=== PATIENT | male | born 1985 | race Caucasian/White ===

== ENCOUNTER 2020-06-12 14:33 | Outpatient (REF) | payer MEDICAID, SELFPAY | END 2020-06-12 14:34 | disposition home or self-care (01) | LOC: HO.LAB 14:33 | PROVIDERS: PCP Nurse Practitioner Family; Visit Provider Internal Medicine | DX: Z20.828 Contact with and (suspected) exposure to other viral communicable diseases (principal) | CPT/HCPCS: C9803; U0003 ==

== ENCOUNTER → 2020-07-22 09:36 | Outpatient (REF) | payer MEDICAID, SELFPAY ==
--- NOTE | ~2020-07-22 | NM_ITS ---
EXERCISE MYOCARDIAL PERFUSION STUDY INDICATION: Chest pain, history of LAD stent, assess for coronary disease and ischemia TECHNIQUE: The patient was brought in for an exercise perfusion study on 07/22/2020. Patient performed exercise as per Shan protocol and was injected 35 mCi of sestamibi once target heart rate was achieved. Images were obtained using the SPECT gamma camera interlaced with the gating device. Images were obtained in supine position. Resting perfusion study was performed on 07/25/2020. Patient was administered 35 mCi of sestamibi intravenously at rest. Images were then obtained in supine position. Total DLP 101mGy-cm. Images were processed with the software and compared side to side in short axis, horizontal long axis and vertical long axis views. FINDINGS: Raw images were reviewed. The stress perfusion study showed small area of the perfusion defect in the basal inferior septum. Possibly artifactual. Otherwise no clear perfusion defect on comparison of uncorrected and attenuation corrected images. The gated study shows normal LV systolic function with calculated LVEF of 64%. LV cavity is normal in size. The gated study is unremarkable. Resting study shows no significant perfusion abnormality. Gating at rest reveals normal wall motion with ejection fraction at 62%. The findings are consistent with no definite reversible or fixed perfusion defects. NM/NM charanjit perf SPECT rest & str IMPRESSION: 1. Myocardial perfusion imaging study shows likely normal perfusion. No definitive areas of any ischemia or infarction noted. 2. Gated LVEF is 64% during stress and 62% during rest. 3. Transient ischemic dilatation not present. EKG component of the test reported separately.
--- NOTE | 2020-07-22 10:00 | CA_ITS ---
Acquisition Time: 2020-07-22 10:54:46 Total Exercise Time: 00:09:20 Test Indications: Chest Pain Medications: ATORVASTATIN CARVEDILOL ASA PLAVIX XARELTO REMERON Protocol: RENE Max HR: 160 BPM 86% of Pred: 184 BPM Max BP: 148/078 mmHG Max Work Load: 10.4 METS Exercise stress test with exercise 9 min 20 sec of Rene protocol ( stage 3 held), without anginal symptoms, without arrythmia, with normotensive response to exercise, without EKG changes meeting criteria for ischemia. Nuclear images pending. Test reviewed with Dr Medina. Referred By: Nicholas Connell Overread By: SAMANTHA BRANDON
== END ==
LOC: HO.CARD 09:36
PROVIDERS: PCP Nurse Practitioner Family; Visit Provider Internal Medicine Cardiovascular Disease
DX: R07.9 Chest pain, unspecified (principal)
CPT/HCPCS: 78452; 93017; A9500

== ENCOUNTER 2021-12-16 08:10 | Outpatient (REF) | payer MEDICAID, SELFPAY ==
[2021-12-16 11:20] LABS: COVID-19 Test Negative (Negative)
== END 2021-12-16 08:11 | disposition home or self-care (01) ==
LOC: HO.LAB 08:10
PROVIDERS: Visit Provider Internal Medicine
DX: Z20.822 Contact with and (suspected) exposure to COVID-19 (principal)
CPT/HCPCS: 87635; C9803

== ENCOUNTER 2022-01-22 13:12 | Outpatient (REF) | payer MEDICAID, SELFPAY ==
[2022-01-22 14:08] LABS: COVID-19 Test Positive (Negative); IDNOW Serial# 16C4AD1C
== END 2022-01-22 13:13 | disposition home or self-care (01) ==
LOC: HO.LAB 13:12
PROVIDERS: Visit Provider Internal Medicine
DX: Z20.822 Contact with and (suspected) exposure to COVID-19 (principal)
CPT/HCPCS: 87635; C9803

== ENCOUNTER 2022-01-29 12:11 | Outpatient (REF) | payer MEDICAID, SELFPAY ==
[2022-01-29 12:56] LABS: COVID-19 Test Positive (Negative)
== END 2022-01-29 12:12 | disposition home or self-care (01) ==
LOC: HO.LAB 12:11
PROVIDERS: Visit Provider Internal Medicine
DX: Z20.822 Contact with and (suspected) exposure to COVID-19 (principal)
CPT/HCPCS: 87635; C9803

== ENCOUNTER 2022-11-06 21:24 | Emergency (ER) | payer MEDICAID, SELFPAY ==
[2022-11-06 21:32] VITALS: BP 136/94; BP 154/86; PULSE 65; PULSE 88; RESP 18; TEMP 36.1; O2SAT 98; O2SAT 99; BMI 20.3
[2022-11-06 22:04] LABS: MANUAL DIFF FLAG NO
[2022-11-06 22:05] LABS: Basophils Absolute Auto 0.1 X10*3/uL (0.0-0.2); Basophils Percent Auto 1.2 % (0-2); Eosinophils Absolute Auto 0.3 X10*3/uL (0.0-0.4); Eosinophils Percent Auto 2.8 % (0-4); Hematocrit 46.5 % (42.0-52.0); Hemoglobin 15.6 g/dl (14.0-18.0); Imm Gran Abs Auto 0.02 X10*3/uL (0.00-0.03); Imm Gran Pct Auto 0.2 % (0.0-0.4); Lymphocytes Absolute Auto 3.6 X10*3/uL (1.2-4.9); Lymphocytes Percent Auto 39.3 % (20-40); Mean Corpuscular HGB Conc 33.5 g/dl (31.0-36.0); Mean Corpuscular Hemoglobin 29.3 pg (27.0-33.0); Mean Corpuscular Volume 87.2 fL (80.0-98.0); Mean Platelet Volume 9.5 fL (9.4-12.4); Monocytes Absolute Auto 0.7 X10*3/uL (0.1-1.2); Monocytes Percent Auto 7.6 % (2-11); Neutrophils Absolute Auto 4.5 x10*3/uL (2.0-8.3); Neutrophils Percent Auto 48.9 % (45-73); Platelet Count 336 X10*3/uL (160-400); Red Blood Count 5.33 X10*6/uL (4.60-5.80); Red Cell Distribution Width 12.9 % (11.0-16.0); White Blood Count 9.2 X10*3/uL (4.8-10.8)
[2022-11-06 22:21] LABS: Anion Gap 13 (12-20); Blood Urea Nitrogen 15 mg/dL (9-16); Calcium 10.3 mg/dL (8.4-10.2); Carbon Dioxide 28 mmol/L (22-29); Chloride 102 mmol/L (96-108); Creatinine Clr Calc Pharmacy 68.3; Estimated Glomerular Filt Rate 56; Glucose Random 69 mg/dL (60-115); Potassium 4.1 mmol/L (3.3-5.1); Sodium 139 mmol/L (135-145)
[2022-11-06 22:42] LABS: Influenza A PCR NEGATIVE (Negative); Influenza B PCR NEGATIVE (Negative); Resp Syncy Virus RNA Qual PCR NEGATIVE (Negative); SARS COV2 PCR INHOUSE NEGATIVE (Negative)
[2022-11-07 00:58] VITALS: BP 137/85; PULSE 61; RESP 18; TEMP 36.6; O2SAT 97
--- NOTE | 2022-11-07 03:08 | ED.GENADULT ---
HPI - General Adult General Chief complaint: General Medical Stated complaint: dizziness Time Seen by Provider: 11/07/22 01:29 History of Present Illness HPI narrative: Patient is 37 years old presents today with having generalized malaise weakness nausea vomiting no diarrhea. Patient's older son also sick at home. Patient denies any pain on urination. Denies any abdominal surgery in the past. Denies any abdominal pain. Feels very achy. Related Data Allergies Allergy/AdvReac Type Severity Reaction Status Date / Time No Known Allergies Allergy Unverified 03/07/20 17:26 Review of Systems Review of Systems: Positive nausea vomiting. No diarrhea. Positive generalized malaise Yes all other systems are reviewed and are negative [facility] Past Medical History Attestation statement: The following information was validated with the patient. Social History Social History Advance Directives: No Advance Directives Information Provided: Yes Physical Exam ED Vital Signs: Vital Signs - 24 hr 11/06/22 21:32 11/07/22 00:58 11/07/22 04:23 Temperature 96.9 F 97.9 F 98.2 F Pulse Rate 65 61 65 Respiratory Rate 18 18 16 Blood Pressure 136/94 H 137/85 115/71 Pulse Oximetry 99 97 96 Oxygen Delivery Method Room Air Room Air Room Air BMI result Body Mass Index 20.3 Appearance: Alert. Oriented X3. No acute distress. Eyes: Pupils equal, round and reactive to light. ENT: Pharynx normal. Neck: Normal inspection. Neck supple. No lymph nodes noted. No crepitus CVS: Normal heart rate and rhythm. Pulses normal. Normal S1 and S2 Respiratory: No respiratory distress. Breath sounds normal. No Wheezing. No rales Abdomen: Soft and nontender. No rigidity. No distention. good BS x4 Skin: Skin warm and dry. Normal skin color. Normal skin turgor. Extremities: No lower extremity edema. Neurovascular intact to all extremities. No Lacerations. No Rash Neuro: Oriented X 3. No motor deficit. No sensory deficit. Moving all extermities. No slurred speech Medications Administered Discontinued Medications Generic Name Dose Route Start Last Admin Trade Name Freq PRN Reason Stop Dose Admin Sodium Chloride 1,000 mls @ 999 mls/hr 11/07/22 03:15 11/07/22 04:49 Ns IV 05/20/23 04:15 Infused .Q1H1M JEFFREY Infusion Sodium Chloride 1,000 mls @ 999 mls/hr 11/07/22 03:15 11/07/22 04:49 Ns IV 11/07/22 04:15 Infused .Q1H1M JEFFREY Infusion Ketorolac Tromethamine 30 mg 11/07/22 03:07 11/07/22 03:49 Ketorolac Tromethamine 30 Mg/Ml Vial IVPUSH 11/07/22 03:08 30 mg ONCE ONE Administration Ondansetron HCl 4 mg 11/07/22 03:07 11/07/22 03:49 Ondansetron Hcl 4 Mg/2 Ml Vial IVPUSH 11/07/22 03:08 4 mg ONCE ONE Administration Medical Decision Making Medical Decision Making [facility] Narrative: Patient's flu RSV COVID were all negative. Had chills nausea not feeling well. Given IV fluids here in the emergency department. Symptom improved. Patient's white count is normal hemoglobin is 15.6 no evidence for anemia electrolytes are normal. Well-appearing no distress. Lilly much improved. Will discharge patient home. Differential Diagnosis Viral syndrome Lab Data [facility] Lab Attestation statement: I reviewed the patient's lab results. 11/06/22 21:59 11/06/22 21:59 Labs: Lab Results 11/06/22 11/06/22 11/06/22 Range/Units 21:59 21:59 21:59 WBC 9.2 (4.8-10.8) X10*3/uL RBC 5.33 (4.60-5.80) X10*6/uL Hgb 15.6 (14.0-18.0) g/dl Hct 46.5 (42.0-52.0) % MCV 87.2 (80.0-98.0) fL MCH 29.3 (27.0-33.0) pg MCHC 33.5 (31.0-36.0) g/dl RDW 12.9 (11.0-16.0) % Plt Count 336 (160-400) X10*3/uL MPV 9.5 (9.4-12.4) fL Immature Gran % (Auto) 0.2 (0.0-0.4) % Neut % (Auto) 48.9 (45-73) % Lymph % (Auto) 39.3 (20-40) % [place] % (Auto) 7.6 (2-11) % Eos % (Auto) 2.8 (0-4) % Baso % (Auto) 1.2 (0-2) % Lymph # (Auto) 3.6 (1.2-4.9) X10*3/uL [place] # (Auto) 0.7 (0.1-1.2) X10*3/uL Eos # (Auto) 0.3 (0.0-0.4) X10*3/uL Baso # (Auto) 0.1 (0.0-0.2) X10*3/uL Abs Immat Gran (auto) 0.02 (0.00-0.03) X10*3/uL Absolute Neuts (auto) 4.5 (2.0-8.3) x10*3/uL Absolute Nucleated RBC 0.000 (0.0-0.012) X10*3/uL Nucleated RBC % (auto) 0.0 (0.0-0.2) /100WBC Sodium 139 (135-145) mmol/L Potassium 4.1 (3.3-5.1) mmol/L Chloride 102 (96-108) mmol/L Carbon Dioxide 28 (22-29) mmol/L Anion Gap 13 (12-20) BUN 15 (9-16) mg/dL Creatinine 1.41 H (0.5-1.4) mg/dL Estim Creat Clear Calc 68.3 Estimated GFR 56 Random Glucose 69 (60-115) mg/dL Calcium 10.3 H (8.4-10.2) mg/dL Influenza Type A (PCR) NEGATIVE (Negative) Influenza Type B (PCR) NEGATIVE (Negative) RSV RNA Qual (PCR) NEGATIVE (Negative) SARS-CoV-2 RNA (RT-PCR) NEGATIVE (Negative) Discharge Plan Discharge Clinical Impression: Acute viral syndrome Patient Disposition: Home, Self-Care Instructions: Viral Syndrome (ED) Referrals: [facility] [Primary Care Provider] - 11/09/22
[2022-11-07] MEDS: 0.9 % Sodium Chloride 1,000 ML 999 ML IV ×2 (03:48)
[2022-11-07] MEDS: Ketorolac Tromethamine 30 MG/ML VIAL IVPUSH (03:49)
[2022-11-07] MEDS: ondansetron HCL 4 MG/2 ML VIAL IVPUSH (03:49)
[2022-11-07 04:23] VITALS: BP 115/71; PULSE 65; RESP 16; TEMP 36.8; O2SAT 96
== END 2022-11-07 06:07 | disposition home or self-care (01) ==
PROVIDERS: Emergency Provider Emergency Medicine Emergency Medical Services
DX: B34.9 Viral infection, unspecified (principal); R53.1 Weakness; Z20.822 Contact with and (suspected) exposure to COVID-19; Z20.828 Contact with and (suspected) exposure to other viral communicable diseases
CPT/HCPCS: 0241U; 80048; 85025; 96361; 96374; 96375; 99284; J1885; J2405

== ENCOUNTER 2023-01-15 19:06 | Emergency (ER) | payer MEDICAID, SELFPAY ==
--- NOTE | ~2023-01-15 | XR_ITS ---
EXAMINATION: XR CHEST CLINICAL INFORMATION: Chest pain COMPARISON: Chest x-ray on 02/01/2020 TECHNIQUE: Frontal view of the chest was obtained. FINDINGS: No significant abnormality is noted involving the heart, lungs, mediastinum, bony thorax or soft tissues. XR/XR chest 1V IMPRESSION: Unremarkable examination.
--- NOTE | 2023-01-15 19:11 | ECG_ITS ---
Test Reason : CHEST PAIN Blood Pressure : / mmHG Vent. Rate : 092 BPM Atrial Rate : 092 BPM P-R Int : 170 ms QRS Dur : 086 ms QT Int : 374 ms P-R-T Axes : 049 059 034 degrees QTc Int : 462 ms Normal sinus rhythm Normal ECG When compared with ECG of 02-FEB-2020 11:01, No significant change was found Referred By: Neelam Bowman Electronically Signed By:VICENTE SILVA MD
[2023-01-15 19:14] VITALS: BP 144/90; PULSE 80; O2SAT 100
[2023-01-15 19:26] VITALS: BP 138/97; PULSE 91; RESP 18; O2SAT 98; BMI 34.6
[2023-01-15 20:04] LABS: Appearance Urine Clear; Color Urine Yellow; Glucose Urine UA Negative (Negative); Leukocyte Esterase Urine Negative (Negative); Nitrite Urine Negative (Negative); Specific Gravity - Urine 1.015 (1.005-1.025); UMIC TRIGGER UACC YES; Urine Blood Trace (Negative); Urine Ketones Trace mg/dL (Negative); Urine Protein Negative (Neg-Trace)
[2023-01-15 20:33] LABS: Bacteria Urine None Seen (None Seen); Hyaline Casts Urine >20 /LPF (0-2); Squamous Epithelial Cell Urine 0-2 /HPF (0-2); WBC Urine 0-5 /HPF (0-5)
--- NOTE | 2023-01-15 20:38 | MHC.RECOVSUP ---
? Reason for consult:OPI o? Current location:[facility]? o? Identified substance use concern:? -? Support ? Intervention: o? Community resources provided o? Harm reduction discussion ? Plan:Outpatient services ? Additional information:RC met with this pt and discussed different treatment options, pt is interested in obtaining a riding coach and continuing the gonzalez with MICHAEL. This comic book writer provided this pt with business card and recovery resources. Provider was informed.
[2023-01-15 20:40] LABS: Anion Gap 21 (12-20); Blood Urea Nitrogen 14 mg/dL (9-16); Calcium 10.6 mg/dL (8.4-10.2); Carbon Dioxide 19 mmol/L (22-29); Chloride 102 mmol/L (96-108); Creatinine Clr Calc Pharmacy 88.1; Estimated Glomerular Filt Rate 54; Glucose Random 104 mg/dL (60-115); Potassium 3.4 mmol/L (3.3-5.1); Sodium 139 mmol/L (135-145)
[2023-01-15 20:43] LABS: Troponin-I High Sensitivity < 2.7 ng/L (<3.5-35.0)
[2023-01-15 22:15] LABS: MANUAL DIFF FLAG NO
[2023-01-15 22:18] VITALS: BP 130/76; PULSE 67; RESP 14; TEMP 36.7; O2SAT 98
[2023-01-15 22:21] LABS: Basophils Absolute Auto 0.1 X10*3/uL (0.0-0.2); Basophils Percent Auto 0.7 % (0-2); Eosinophils Percent Auto 0.3 % (0-4); Hematocrit 47.5 % (42.0-52.0); Imm Gran Abs Auto 0.07 X10*3/uL (0.00-0.03); Imm Gran Pct Auto 0.5 % (0.0-0.4); Lymphocytes Absolute Auto 2.3 X10*3/uL (1.2-4.9); Lymphocytes Percent Auto 16.6 % (20-40); Mean Corpuscular HGB Conc 33.7 g/dl (31.0-36.0); Mean Corpuscular Hemoglobin 29.6 pg (27.0-33.0); Mean Platelet Volume 9.9 fL (9.4-12.4); Monocytes Percent Auto 7.2 % (2-11); Neutrophils Absolute Auto 10.4 x10*3/uL (2.0-8.3); Neutrophils Percent Auto 74.7 % (45-73); Platelet Count 339 X10*3/uL (160-400); Red Cell Distribution Width 12.7 % (11.0-16.0); White Blood Count 13.9 X10*3/uL (4.8-10.8)
--- NOTE | 2023-01-15 22:37 | ED_ITS ---
HPI - Chest Pain General Chief Complaint: Chest Pain Stated Complaint: Chest Pain/N/V Time Seen by Provider: 01/15/23 20:49 Source: patient Mode of arrival: EMS Limitations: no limitations History of Present Illness HPI narrative: Patient is a 37-year-old male presents emergency department for evaluation of chest pain that he reports that started today after taking his methadone in using heroin simultaneously. Chest pain was diffuse across the anterior chest and had associated vomiting, he denies pain at the time of my exam evaluation. He is requesting assistance with detox from heroin. Denies headache, dizziness, lightheadedness, neck pain, vision changes, shortness of breath, difficulty breathing, abdominal pain, numbness or tingling of the extremities, weakness. Related Data Allergies Allergy/AdvReac Type Severity Reaction Status Date / Time No Known Allergies Allergy Unverified 03/07/20 17:26 Review of Systems Review of Systems: Constitutional : No Weight loss, No Fever, No Chills ENT/Mouth :? No sore throat, No Rhinorrhea Eyes: No Eye Pain, No Swelling Cardiovascular : pos Chest Pain, No SOB, no Dyspnea on Exertion, No Orthopnea, No Edema, No Palpitations Respiratory : No Cough, No Sputum Gastrointestinal : pos Nausea, No Vomiting, No Diarrhea, No abdominal Pain, No Hematochezia, No Melena Genitourinary : No Dysuria, No Urinary Frequency Musculoskeletal : No joint pain, No Myalgias, No Joint Swelling Skin : No Skin Lesions, No rash Neuro : No Weakness, No Numbness, No Dizziness, No Headache Psych : No Anxiety/Panic, No Depression Heme/Lymph: No Bruising, No Lymphadenopathy Endocrine : No Polyuria, No Polydipsia Yes all other systems are reviewed and are negative [facility] Past Medical History Attestation statement: The following information was validated with the patient. Source: old records reviewed Social History Social History Advance Directives: No Advance Directives Information Provided: Yes Physical Exam Vital Signs: Vital Signs: Last Vital Signs Temp 98.1 F 01/15/23 22:18 Pulse 67 01/15/23 22:18 Resp 14 01/15/23 22:18 BP 130/76 01/15/23 22:18 Pulse Ox 98 01/15/23 22:18 O2 Del Method Room Air 01/15/23 22:18 BMI result Body Mass Index 34.6 Appearance: Alert.?Oriented to person, place and time. No acute distress.?Normal affect. Eyes: Pupils equal, round and reactive to light.? ENT: Pharynx normal.?? Neck: Normal inspection.? Neck supple.?? CVS: Heart sounds normal. Normal heart rate and rhythm.? Pulses normal.?? Respiratory: No respiratory distress.? Lung sounds clear to auscultation bilaterally?? Abdomen: Soft and non-tender. Normoactive bowel sounds. No pulsatile mass.?? Skin: Skin warm and dry.? Normal skin color.? ? Extremities: No lower extremity edema.? Neuro: Moves all extremities spontaneously. Sensation intact bilaterally. CN II- XII intact. No focal neuro deficits. Ambulates with normal steady gait. Medical Decision Making Medical Decision Making [facility] Narrative: patient is a 37-year-old male presents emergency department for evaluation of chest pain as per HPI put at the time my examination chest pain had a fall, he is overall well-appearing, nontoxic, afebrile, without any respiratory distress. He did receive 500 mL of normal saline and Zofran IV prior to arrival by EMS with good effect. CBC with mild leukocytosis likely leukmoid reaction from vomiting, which has now resolved. CMP revealing elevated creatinine which appears consistent with prior level obtained in October 2022. Troponin <2.7, EKG revealing normal sinus rhythm with ventricular rate of 92, QTC 462, no ST e levation, ST depression, or T-wave inversion, at this time not consistent with ACS. PERC Negative unlikely pulmonary embolism. chest x-rays without acute cardiopulmonary findings, no evidence of pneumonia. his symptoms have resolved, suspect that this was in relation to polysubstance use, at this time he is stable for discharge. He received information for local detox facilities which he will be contacting. offered Narcan upon discharge take home, patient declines reporting that he already has Narcan. reviewed worrisome signs and symptoms that would warrant re-evaluation in the emergency department. All Questions answered Differential Diagnosis Differential Diagnoses: The differential diagnosis associated with the presenta tion includes ( polysubstance use, ACS, pulmonary embolism, pneumonia) Admission/Observation Consideration of admission/observation: Escalation of care including admission/observation considered ( I considered admission for chest pain, see narrative above for further details) Lab Data [facility]DM Lab Attestation statement: I reviewed the patient's lab results. ( see narrative above) 01/15/23 22:06 01/15/23 19:55 Labs: Lab Results 01/15/23 01/15/23 01/15/23 Range/Units 19:55 19:55 19:55 WBC (4.8-10.8) X10*3/uL RBC (4.60-5.80) X10*6/uL Hgb (14.0-18.0) g/dl Hct (42.0-52.0) % MCV (80.0-98.0) fL MCH (27.0-33.0) pg MCHC (31.0-36.0) g/dl RDW (11.0-16.0) % Plt Count (160-400) X10*3/uL MPV (9.4-12.4) fL Immature Gran % (Auto) (0.0-0.4) % Neut % (Auto) (45-73) % Lymph % (Auto) (20-40) % [place] % (Auto) (2-11) % Eos % (Auto) (0-4) % Baso % (Auto) (0-2) % Lymph # (Auto) (1.2-4.9) X10*3/uL [place] # (Auto) (0.1-1.2) X10*3/uL Eos # (Auto) (0.0-0.4) X10*3/uL Baso # (Auto) (0.0-0.2) X10*3/uL Abs Immat Gran (auto) (0.00-0.03) X10*3/uL Absolute Neuts (auto) (2.0-8.3) x10*3/uL Absolute Nucleated RBC (0.0-0.012) X10*3/uL Nucleated RBC % (auto) (0.0-0.2) /100WBC Sodium 139 (135-145) mmol/L Potassium 3.4 (3.3-5.1) mmol/L Chloride 102 (96-108) mmol/L Carbon Dioxide 19 L (22-29) mmol/L Anion Gap 21 H (12-20) BUN 14 (9-16) mg/dL Creatinine 1.45 H (0.5-1.4) mg/dL Estim Creat Clear Calc 88.1 Estimated GFR 54 Random Glucose 104 (60-115) mg/dL Calcium 10.6 H (8.4-10.2) mg/dL Troponin I High Sens < 2.7 (<3.5-35.0) ng/L Urine Color Yellow Urine Appearance Clear Urine pH 6.0 (5.0-9.0) Ur Specific [place] 1.015 (1.005-1.025) Urine Protein Negative (Neg-Trace) mg/dL Urine Glucose (UA) Negative (Negative) mg/dL Urine Ketones Trace (Negative) mg/dL Urine Blood Trace H (Negative) Urine Nitrite Negative (Negative) Ur Leukocyte Esterase Negative (Negative) Urine RBC 3-5 H (0-2) /HPF Urine WBC 0-5 (0-5) /HPF Ur Squamous Epith Cells 0-2 (0-2) /HPF Urine Bacteria None Seen (None Seen) Hyaline Casts >20 (0-2) /LPF 01/15/23 Range/Units 22:06 WBC 13.9 H (4.8-10.8) X10*3/uL RBC 5.40 (4.60-5.80) X10*6/uL Hgb 16.0 (14.0-18.0) g/dl Hct 47.5 (42.0-52.0) % MCV 88.0 (80.0-98.0) fL MCH 29.6 (27.0-33.0) pg MCHC 33.7 (31.0-36.0) g/dl RDW 12.7 (11.0-16.0) % Plt Count 339 (160-400) X10*3/uL MPV 9.9 (9.4-12.4) fL Immature Gran % (Auto) 0.5 H (0.0-0.4) % Neut % (Auto) 74.7 H (45-73) % Lymph % (Auto) 16.6 L (20-40) % [place] % (Auto) 7.2 (2-11) % Eos % (Auto) 0.3 (0-4) % Baso % (Auto) 0.7 (0-2) % Lymph # (Auto) 2.3 (1.2-4.9) X10*3/uL [place] # (Auto) 1.0 (0.1-1.2) X10*3/uL Eos # (Auto) 0.0 (0.0-0.4) X10*3/uL Baso # (Auto) 0.1 (0.0-0.2) X10*3/uL Abs Immat Gran (auto) 0.07 H (0.00-0.03) X10*3/uL Absolute Neuts (auto) 10.4 H (2.0-8.3) x10*3/uL Absolute Nucleated RBC 0.000 (0.0-0.012) X10*3/uL Nucleated RBC % (auto) 0.0 (0.0-0.2) /100WBC Sodium (135-145) mmol/L Potassium (3.3-5.1) mmol/L Chloride (96-108) mmol/L Carbon Dioxide (22-29) mmol/L Anion Gap (12-20) BUN (9-16) mg/dL Creatinine (0.5-1.4) mg/dL Estim Creat Clear Calc Estimated GFR Random Glucose (60-115) mg/dL Calcium (8.4-10.2) mg/dL Troponin I High Sens (<3.5-35.0) ng/L Urine Color Urine Appearance Urine pH (5.0-9.0) Ur Specific [place] (1.005-1.025) Urine Protein (Neg-Trace) mg/dL Urine Glucose (UA) (Negative) mg/dL Urine Ketones (Negative) mg/dL Urine Blood (Negative) Urine Nitrite (Negative) Ur Leukocyte Esterase (Negative) Urine RBC (0-2) /HPF Urine WBC (0-5) /HPF Ur Squamous Epith Cells (0-2) /HPF Urine Bacteria (None Seen) Hyaline Casts (0-2) /LPF Independent Interpretation I performed an independent interpretation of an: Plain X-Ray ( I personally interpreted chest x-ray and agree with radiologist impression, there is no evidence of pneumonia, pneumothorax) Radiology Impression Discussion of test interpretation with radiology: I have reviewed the radiologist's reading. Radiologist Impression: XR/XR chest 1V IMPRESSION: Unremarkable examination. Independent Historian Clinical information obtained from an independent historian. History obtained from or confirmed by: EMS External Record Review External record reviewed: Prior outpatient labs Social Determinants Patient?s care significantly limited by Social Determinants of Health including: Alcoholism and drug addiction in family Discharge Plan Discharge Clinical Impression: Polysubstance use disorder, Chest pain Patient Disposition: Home, Self-Care Instructions: Chest Pain (ED) Additional Instructions: please follow-up with detox facilities. Return back to emergency department any new or worsening symptoms or concerns. Referrals: [facility] [Primary Care Provider] - Interventions: ED Discharge Assessment Last Done: 01/15/23 23:01 Discharge Date/Time: 01/15/23 23:02
== END 2023-01-15 23:02 | disposition home or self-care (01) ==
PROVIDERS: Nurse Practitioner Family; Emergency Provider Emergency Medicine
DX: R07.89 Other chest pain (principal); R11.2 Nausea with vomiting, unspecified; F11.10 Opioid abuse, uncomplicated; Z79.899 Other long term (current) drug therapy
CPT/HCPCS: 36415; 71045; 80048; 81001; 81003; 84484; 85025; 93005; 99283; 99284

== ENCOUNTER → 2023-01-15 19:11 | Outpatient (BNV) | payer MEDICAID, SELFPAY | PROVIDERS: Emergency Provider Emergency Medicine; Visit Provider Internal Medicine Cardiovascular Disease | DX: R07.9 Chest pain, unspecified (principal) | CPT/HCPCS: 93010 ==

== ENCOUNTER 2023-03-12 15:38 | Outpatient (REF) | payer MEDICAID, SELFPAY ==
[2023-03-12 17:34] LABS: Anion Gap 13 (12-20); Blood Urea Nitrogen 9 mg/dL (9-16); Calcium 9.5 mg/dL (8.4-10.2); Carbon Dioxide 26 mmol/L (22-29); Chloride 105 mmol/L (96-108); Estimated Glomerular Filt Rate > 60; Glucose Random 88 mg/dL (60-115); Potassium 4.3 mmol/L (3.3-5.1); Sodium 140 mmol/L (135-145)
== END 2023-03-12 15:39 | disposition home or self-care (01) ==
LOC: HO.HHCL 15:38
PROVIDERS: Visit Provider Nurse Practitioner Primary Care
DX: R79.89 Other specified abnormal findings of blood chemistry (principal)
CPT/HCPCS: 36415; 80048

== ENCOUNTER 2023-04-18 17:06 | Emergency (ER) | payer MEDICAID, SELFPAY ==
[2023-04-18 17:31] VITALS: BP 112/72; BP 142/84; PULSE 48; PULSE 50; RESP 16; TEMP 36.4; O2SAT 95; O2SAT 98; BMI 35.9
--- NOTE | 2023-04-18 18:12 | ECG_ITS ---
Test Reason : PALPITATIONS Blood Pressure : / mmHG Vent. Rate : 045 BPM Atrial Rate : 045 BPM P-R Int : 152 ms QRS Dur : 084 ms QT Int : 514 ms P-R-T Axes : 020 048 025 degrees QTc Int : 444 ms Sinus bradycardia Otherwise normal ECG When compared with ECG of 15-JAN-2023 19:25, Vent. rate has decreased BY 47 BPM Referred By: Vilma Jones Electronically Signed By:SAPPHIRE LANDERS MD
[2023-04-18 18:59] LABS: Hematocrit 41.8 % (42.0-52.0); Hemoglobin 13.9 g/dl (14.0-18.0); Mean Corpuscular HGB Conc 33.3 g/dl (31.0-36.0); Mean Corpuscular Hemoglobin 29.6 pg (27.0-33.0); Mean Corpuscular Volume 88.9 fL (80.0-98.0); Mean Platelet Volume 9.6 fL (9.4-12.4); Platelet Count 290 X10*3/uL (160-400); Red Cell Distribution Width 12.7 % (11.0-16.0); White Blood Count 9.4 X10*3/uL (4.8-10.8)
--- NOTE | 2023-04-18 19:04 | ED.DIZZY ---
HPI - Dizziness General Chief Complaint: Dizziness Stated Complaint: ETOH Time Seen by Provider: 04/18/23 17:20 Source: patient Mode of arrival: ambulatory Limitations: no limitations History of Present Illness HPI Narrative: Patient is a 38-year-old male who presents emergency department for evaluation of dizziness, diaphoresis and palpitations. He reports at approximately 1600 today he was hanging curtains when suddenly he felt ?just a very little bit dizzy? in began sweating and felt his heart racing. He tried to sit down and his symptoms did not resolve. He states that he thought this may have been related to withdrawal from opiates, he decided to snort a bag of heroin which did not relieve his symptoms. He states he infrequently uses heroin, he is currently on methadone. He was concerned about the way he was feeling as he states he had a history of 2 heart attacks with stent placement in 2014. At the time of my examination he states that his symptoms have mostly resolved but he does still feel little bit of palpitations and discomfort to the anterior chest diffusely. He denies fevers, chills, neck pain, jaw pain, URI symptoms, shortness of breath, numbness or tingling of the extremities, lower extremity swelling, weakness. Related Data Allergies Allergy/AdvReac Type Severity Reaction Status Date / Time No Known Allergies Allergy Verified 04/18/23 17:44 Review of Systems Review of Systems: Yes all other systems are reviewed and are negative [facility] Past Medical History Attestation statement: The following information was validated with the patient. Source: old records reviewed Social History Social History Use of substances other than those prescribed or required for medical reasons: Yes Substance Use Type: Heroin Advance Directives: No Advance Directives Information Provided: No Physical Exam Vital Signs: Vital Signs: Last Vital Signs Temp 98.2 F 04/18/23 22:49 Pulse 50 04/18/23 22:49 Resp 18 04/18/23 22:49 BP 108/69 04/18/23 22:49 Pulse Ox 98 04/18/23 22:49 O2 Del Method Room Air 04/18/23 22:49 BMI result Body Mass Index 35.9 Appearance: Alert.?Oriented to person, place and time. No acute distress.?Normal affect. Eyes: Pupils equal, round and reactive to light.? ENT: Pharynx normal.?? Neck: Normal inspection.? Neck supple.?? CVS: Heart sounds normal. Normal heart rate and rhythm.? Pulses normal.?? Respiratory: No respiratory distress.? Lung sounds clear to auscultation bilaterally?? Abdomen: Soft and non-tender. Normoactive bowel sounds. No pulsatile mass.?? Skin: Skin warm and dry.? Normal skin color.? Extremities: No lower extremity edema.? No calf ttp? Neuro: Moves all extremities spontaneously. Sensation intact bilaterally. No focal neuro deficits. Ambulates with normal steady gait. Course Reevaluation(s) Reevaluation #1: Serum labs are overall unremarkable. High sensitive troponin negative x2. EKG revealing sinus tachycardia without evidence of heart block or acute ischemic findings. He has been asymptomatic for the duration of his stay here. At this time feel he is stable for discharge home. Discussed with patient outpatient follow-up with primary care provider. Reviewed worrisome signs and symptoms that would warrant re-evaluation emergency department. All questions were answered. Medical Decision Making Medical Decision Making [facility] Narrative: Patient is a 38-year-old male with reported past medical history of myocardial infarction x2 with stent placement in 2014 presenting to emergency department for evaluation of mild dizziness diaphoresis and palpitations as per HPI. At the time my examination he is overall well-appearing, nontoxic, afebrile. He is noted to be bradycardic with pulse rate of 56 on auscultation. No respiratory distress. Speaking clear full sentences. No focal neurological deficits. No diaphoresis is noted. His symptoms have nearly completely resolved aside from a mild discomfort diffusely throughout the chest and intermittent palpitations. When asked he declines any interest in a SUDE evaluation or detox. Discussed with patient plan of care, Will obtain CBC to evaluate for leukocytosis/ anemia, CMP to evaluate for abnormal electrolytes /abnormal renal function/ abnormal hepatic function, EKG and troponin to evaluate for ischemia/ACS, and viral testing Differential Diagnosis Differential Diagnoses: The differential diagnosis associated with the presentation includes (As noted above) Admission/Observation Consideration of admission/observation: Escalation of care including admission/observation considered (I considered admission for palpitations lightheadedness, see course narrative for further detail) Lab Data [facility] Lab Attestation statement: I reviewed the patient's lab results. CBC is without leukocytosis, mild normocytic anemia, CMP is unremarkable. COVID and flu testing negative. 04/18/23 18:48 04/18/23 18:48 Labs: Lab Results 04/18/23 04/18/23 Range/Units 18:48 21:35 WBC 9.4 (4.8-10.8) X10*3/uL RBC 4.70 (4.60-5.80) X10*6/uL Hgb 13.9 L (14.0-18.0) g/dl Hct 41.8 L (42.0-52.0) % MCV 88.9 (80.0-98.0) fL MCH 29.6 (27.0-33.0) pg MCHC 33.3 (31.0-36.0) g/dl RDW 12.7 (11.0-16.0) % Plt Count 290 (160-400) X10*3/uL MPV 9.6 (9.4-12.4) fL Absolute Nucleated RBC 0.000 (0.0-0.012) X10*3/uL Nucleated RBC % (auto) 0.0 (0.0-0.2) /100WBC PT 12.0 (11.1-13.3) SEC INR 1.0 (0.9-1.1) Sodium 138 (135-145) mmol/L Potassium 3.6 (3.3-5.1) mmol/L Chloride 107 (96-108) mmol/L Carbon Dioxide 23 (22-29) mmol/L Anion Gap 12 (12-20) BUN 13 (9-16) mg/dL Creatinine 1.01 (0.5-1.4) mg/dL Estim Creat Clear Calc 123.8 Estimated GFR > 60 Random Glucose 78 (60-115) mg/dL Calcium 9.2 (8.4-10.2) mg/dL Total Bilirubin 0.3 (0.0-1.0) mg/dL AST 20 (5-37) U/L ALT 20 (0-40) U/L Alkaline Phosphatase 72 (39-117) U/L Troponin I High Sens < 2.7 < 2.7 (<3.5-35.0) ng/L B-Natriuretic Peptide 108 H (<100) pg/mL Total Protein 7.3 (6.5-8.0) g/dL Albumin 4.0 (3.5-5.0) g/dL COVID-19 (ELKE) Negative (Negative) COVID-19 Clin Com See Note Influenza Type A (LINDSAY) Negative (Negative) Influenza Type B (LINDSAY) Negative (Negative) Influenza A & B Note See Note Independent Interpretation I performed an independent interpretation of an: EKG Interpretation: Rate: Sinus bradycardia Rhythm:? 45 Normal P waves.? Normal GURDEEP.?? Normal QRS complex.?? ST T wave :??No ST elevation, no ST depression, no T-wave inversion The study has been interpreted contemporaneously by me. Independent Historian Clinical information obtained from an independent historian. History obtained from or confirmed by: EMS External Record Review External record reviewed: Outpatient record and Prior outpatient labs Discharge Plan Discharge Clinical Impression: Heart palpitations Patient Disposition: Home, Self-Care Instructions: Heart Palpitations (ED) Referrals: [place] [Primary Care Provider] -
[2023-04-18 19:15] LABS: IDNOW Serial# 9DB6401D; Influenza A Negative (Negative); Influenza B2 Negative (Negative)
[2023-04-18 19:20] LABS: Alanine Aminotransferase 20 U/L (0-40); Alkaline Phosphatase 72 U/L (39-117); Anion Gap 12 (12-20); Aspartate Amino Transferase 20 U/L (5-37); Bilirubin Total 0.3 mg/dL (0.0-1.0); Blood Urea Nitrogen 13 mg/dL (9-16); Calcium 9.2 mg/dL (8.4-10.2); Carbon Dioxide 23 mmol/L (22-29); Chloride 107 mmol/L (96-108); Creatinine Clr Calc Pharmacy 123.8; Estimated Glomerular Filt Rate > 60; Glucose Random 78 mg/dL (60-115); Potassium 3.6 mmol/L (3.3-5.1); Sodium 138 mmol/L (135-145); Total Protein 7.3 g/dL (6.5-8.0)
[2023-04-18 19:21] LABS: COVID-19 Test Negative (Negative); IDNOW Serial# 55D5AD1C
[2023-04-18 19:23] LABS: B Type Natriuretic Peptide 108 pg/mL (<100)
[2023-04-18 19:30] LABS: Troponin-I High Sensitivity < 2.7 ng/L (<3.5-35.0)
[2023-04-18 20:32] VITALS: BP 132/80; PULSE 52
[2023-04-18 20:34] VITALS: BP 128/84; PULSE 51
[2023-04-18 20:35] VITALS: BP 140/82; PULSE 50
--- NOTE | 2023-04-18 21:05 | PC.NURSE ---
Pt aox4 resting at the bedside. Reports no pain or discomfort at this time. Pt aware of plan of care. Pending lab draw at 2200.
[2023-04-18 22:03] LABS: Troponin-I High Sensitivity < 2.7 ng/L (<3.5-35.0)
[2023-04-18 22:49] VITALS: BP 108/69; PULSE 50; RESP 18; TEMP 36.8; O2SAT 98
== END 2023-04-18 23:43 | disposition home or self-care (01) ==
PROVIDERS: Nurse Practitioner Family; Emergency Provider Internal Medicine
DX: R00.2 Palpitations (principal); R42 Dizziness and giddiness; R06.02 Shortness of breath; R07.89 Other chest pain; Z11.52 Encounter for screening for COVID-19; Z20.822 Contact with and (suspected) exposure to COVID-19; Z79.899 Other long term (current) drug therapy
CPT/HCPCS: 36415; 80053; 83880; 84484; 85027; 85610; 87502; 87635; 93005; 99285

== ENCOUNTER 2023-07-02 08:08 | Emergency (ER) | payer MEDICAID, SELFPAY ==
[2023-07-02 08:16] VITALS: BP 137/88; BP 160/100; PULSE 64; PULSE 89; RESP 18; TEMP 36.8; O2SAT 100; O2SAT 97; BMI 33.5
--- NOTE | 2023-07-02 08:38 | ED_ITS ---
HPI - Nausea/Vomiting/Diarrhea General Chief complaint: Nausea/Vomiting/Diarrhea Stated complaint: NAUSEA VOMITING Time Seen by Provider: 07/02/23 08:13 Source: patient and EMS Mode of arrival: EMS Limitations: no limitations History of Present Illness HPI Narrative: 38 year old male with no significant pmhx presents to the ED today for evaluation of nausea, vomiting, and diarrhea x2 hours. Endorses associated body aches, chills. 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 Denies fever, chills, sore throat, chest pain, sob, abdominal pain, hematemesis, hematochezia, melena. Denies recent travel. Related Data Previous Rx's Medication Instructions Recorded ondansetron 4 mg disintegrating 4 mg PO DAILY PRN nausea and 07/02/23 tablet vomiting 5 days #10 tabs Allergies Allergy/AdvReac Type Severity Reaction Status Date / Time No Known Allergies Allergy Verified 04/18/23 17:44 Review of Systems Review of Systems: Constitutional: No fever, chills, fatigue, night sweats, weight changes ENT/Mouth: No ear pain, hearing loss, nasal congestion, sinus pain, rhinorrhea, sore throat Eyes: No eye pain, swelling, redness, vision changes, discharge Cardio: No chest pain, palpitations, LY, orthopnea, peripheral edema Pulm: No SOB, cough, sputum, wheezing, dyspnea, hemoptysis GI: +nausea, +vomiting, +diarrhea, No hematemesis, abdominal pain, constipation, hematochezia, melena : No irregular bleeding, dysuria, frequency, urgency, hesitancy, hematuria, flank pain, urinary flow changes, urinary incontinence or retention MSK: No back pain, neck pain, joint pain, myalgias Skin: No lesions, rashes Neuro: No weakness, numbness, paresthesias, LOC, dizziness, headache All other systems reviewed and are negative. [facility] Past Medical History Attestation statement: The following information was validated with the patient. Source: old records reviewed and nursing notes reviewed Onset Date is defined in the Problem List Problems that require an onset date and time if occurred within 24 hrs of arrival to the ED Aortic Dissection and Rupture; Neurologic impairment; Cardiopulmonary Arrest; Endotracheal Intubation; Insertion or Replacement of Mechanical Circulatory Assist Device Social History Social History Substance Use Type: Heroin Advance Directives: No Advance Directives Information Provided: Yes Physical Exam Vital Signs: Vital Signs: Last Vital Signs Temp 98.2 F 07/02/23 08:42 Pulse 68 07/02/23 08:42 Resp 16 07/02/23 08:42 BP 111/78 07/02/23 08:42 Pulse Ox 99 07/02/23 08:42 O2 Del Method Room Air 07/02/23 08:42 BMI result Body Mass Index 33.5 Vital signs stable, afebrile. Const: General: cooperative, comfortable, no acute distress, alert and awake Orientation/consciousness: patient oriented x3 Limitations: no limitations HEENT: Head: Yes normal to inspection Ears: hearing grossly normal bilaterally, external ears normal, TM's normal bilaterally, EAC's normal, mastoids normal and no periauricular adenopathy Eyes: General: appearance normal, both eyes and all related structures Conjunctivae: conjunctivae normal Sclerae: sclerae normal Pupils: Equal, round and reactive pupils present Neck: Other: + no cervical, submental, submandibular LAD Neck: Yes normal visual inspection and Yes no meningeal signs Resp: Effort & Inspection: normal respiratory effort Auscultation: clear to auscultation bilaterally Cardio: Rate: regular rate Rhythm: regular rhythm Peripheral pulses: radial pulses present GI: Other: + abdomen soft, nondistended, nontender, no rebound or guarding, normoactive bowel sounds x4. Inspection: Yes normal to inspection and No visible peristalsis : General: Yes no CVA tenderness Back/Spine/Pelvis: Back: no CVA tenderness Skin: General skin exam: no rashes or lesions noted Neuro: General: patient oriented x3, gait normal, moves all extremities and no meningeal signs Cranial nerves: Yes Equal, round and reactive pupils present Extrem: General: Yes normal to inspection and Yes full ROM Course Course Course Narrative: 1020-- negative for covid, flu. likely gastroenteritis. i do not have concern for acs or arrythma as vitals are wnl and he has no other symptoms. exam not consistent with acute abdomen. labs/ct not warranted at this time. He has received IVF and a GI cocktail. Reports improvement in nausea. Tolerating crackers and gingerale in ED. Will send home with leeanne. Patient has remained stable throughout ED visit today. Discussed strict return precautions. All questions answered at this time. Patient is agreeable with disposition and stable for discharge. Medications Administered Discontinued Medications Generic Name Dose Route Start Last Admin Trade Name Lucas PRN Reason Stop Dose Admin Al Hydroxide/Mg Hydroxide 30 ml 07/02/23 08:53 07/02/23 09:07 Magnesium Hydrox/Alum Hydrox 30 Ml Oral.Susp PO 07/02/23 08:54 30 ml ONCE ONE Administration Belladonna Alkaloids/Phenobarbital 10 ml 07/02/23 08:53 07/02/23 09:07 Phenobarb/Hyoscy/Atropine/Scop 10 Ml Elixir PO 07/02/23 08:54 10 ml ONCE ONE Administration Sodium Chloride 1,000 mls @ 999 mls/hr 07/02/23 09:00 07/02/23 10:25 Ns IV 07/02/23 10:00 Infused .Q1H1M JEFFREY Infusion Ondansetron HCl 4 mg 07/02/23 08:53 07/02/23 09:06 Ondansetron Odt 4 Mg Tab.Rapdis TRANSLINGU 07/02/23 08:54 4 mg ONCE ONE Administration Medical Decision Making Medical Decision Making [facility] Narrative: 38 year old male with no significant pmhx presents to the ED today for evaluation of nausea, vomiting, and diarrhea x2 hours. Endorses associated body aches. Vital signs stable. Afebrile. Abd soft, ND/NT, no rebound or guarding. Negative mcburney point tenderness. Normoactive bs x4. Lungs CTA b/l. RRR. Clinical concern for gastroenteritis, viral syndrome, gastritis. Lower suspicion for PUD. Unlikely diverticulitis/diverticulosis, SBO, ischemic bowel, appendicitis, cholecystitis, pancreatitis, acute abdomen. Plan for serology and medication. Differential Diagnosis Differential Diagnoses: The differential diagnosis associated with the presentation includes as above. Admission/Observation not indicated. Lab Data [facility] Lab Attestation statement: I reviewed the patient's lab results. as above. Labs: Lab Results 07/02/23 Range/Units 08:42 COVID-19 (ELKE) Negative (Negative) COVID-19 Clin Com See Note Influenza Type A (LINDSAY) Negative (Negative) Influenza Type B (LINDSAY) Negative (Negative) Influenza A & B Note See Note Independent Historian Clinical information obtained from an independent historian. History obtained from or confirmed by: EMS External Record Review External record reviewed: Inpatient record Prescription Management I considered prescription management with: Other (antiemetic) Social Determinants Patient?s care significantly limited by Social Determinants of Health including: Other Social Determinant of Health Critical Care Time Critical Care Time Critical Care Time: No Discharge Plan Discharge Clinical Impression: Gastroenteritis Patient Disposition: Home, Self-Care Instructions: Gastroenteritis (ED) Additional Instructions: You tested negative for covid, flu. Your symptoms are most consistent with a viral stomach bug, also known as gastroenteritis.? The treatment for this is supportive care. Symptoms usually resolve on their own in 48-72 hours.? The recommendation is rest and lots of oral hydration.? Stick to a bland diet like soup and toast while you are not feeling well.? Zofran is an anti-nausea medication. This has been sent to your pharmacy for you to take as needed for nausea.? You can also try over the counter Pepto Bismol or Imodium as needed for upset stomach and diarrhea.? Follow up with your primary care provider as needed. If you develop new or worsening symptoms call 911 or come back to the ER for further evaluation. Prescriptions: New ondansetron 4 mg tablet,disintegrating 4 mg PO DAILY PRN (Reason: nausea and vomiting) 5 Days Qty: 10 0RF Stand Alone Forms: Work/School Release Interventions: ED Discharge Assessment Last Done: 07/02/23 10:45 Discharge Date/Time: 07/02/23 10:45
[2023-07-02 08:42] VITALS: BP 111/78; PULSE 68; RESP 16; TEMP 36.8; O2SAT 99
[2023-07-02] MEDS: 0.9 % Sodium Chloride 1,000 ML 999 ML IV (09:03)
[2023-07-02] MEDS: Ondansetron ODT 4 MG TAB.RAPDIS TRANSLINGU (09:06)
[2023-07-02] MEDS: PHENobarb/Hyoscy/Atropine/Scop 10 ML ELIXIR PO (09:07)
[2023-07-02] MEDS: Magnesium Hydrox/Alum Hydrox 30 ML ORAL.SUSP PO (09:07)
[2023-07-02 09:10] LABS: IDNOW Serial# 58CA691E; Influenza A Negative (Negative); Influenza B2 Negative (Negative)
[2023-07-02 09:28] LABS: COVID-19 Test Negative (Negative); IDNOW Serial# 08D9AD1C
== END 2023-07-02 10:45 | disposition home or self-care (01) ==
PROVIDERS: Physician Assistant Medical; Emergency Provider Emergency Medicine; PCP Nurse Practitioner Primary Care
DX: K52.9 Noninfective gastroenteritis and colitis, unspecified (principal); R11.2 Nausea with vomiting, unspecified; Z11.52 Encounter for screening for COVID-19; Z20.828 Contact with and (suspected) exposure to other viral communicable diseases; Z79.899 Other long term (current) drug therapy
CPT/HCPCS: 87502; 87635; 96360; 99284

== ENCOUNTER 2023-07-12 08:46 | Outpatient (REF) | payer MEDICAID, SELFPAY ==
--- NOTE | ~2023-07-12 | US_ITS ---
EXAMINATION: US ABDOMEN COMPLETE CLINICAL INFORMATION: Right upper quadrant pain. COMPARISON: CT abdomen and pelvis 10/05/2009. TECHNIQUE: Real-time imaging of the abdominal viscera. FINDINGS: PANCREAS: Pancreatic tail obscured by overlying bowel gas. The visualized portions of the head and body are within normal limits. ABDOMINAL AORTA: The proximal, mid, and distal segments are normal in caliber. INFERIOR VENA CAVA: Visualized portions are normal. LIVER: Normal. The liver is normal in size. The liver contour is normal. Parenchymal echogenicity is normal. No focal hepatic lesion. There is no intrahepatic biliary duct dilatation seen. GALLBLADDER: Normal. The gallbladder is physiologically distended without evidence of stones, sludge, polyps, wall thickening or pericholecystic fluid. COMMON BILE DUCT: Normal in caliber measuring 0.3 cm in diameter. RIGHT KIDNEY: Normal. No hydronephrosis. No renal calculi or focal parenchymal lesions. The kidney measures 12.7 cm in maximum dimension. LEFT KIDNEY: Normal. No hydronephrosis. No renal calculi or focal parenchymal lesions. The kidney measures 11.9 cm in maximum dimension. SPLEEN: Normal. The spleen measures 6.7 cm in maximum dimension. FREE FLUID: None. US/US abdomen complete IMPRESSION: No acute sonographic abnormalities to explain the patient's symptoms.
== END 2023-07-12 08:47 | disposition home or self-care (01) ==
LOC: HO.US 08:46
PROVIDERS: PCP Nurse Practitioner Primary Care; Visit Provider Nurse Practitioner Primary Care
DX: R10.11 Right upper quadrant pain (principal)
CPT/HCPCS: 76700

== ENCOUNTER 2023-07-28 16:00 | Outpatient (AMB) | payer MEDICAID, SELFPAY ==
--- NOTE | 2023-07-28 16:03 | A.OFFVIS_ITS ---
Intake Vital Signs 07/28/23 16:04 Height 5 ft 11 in Weight 265 lb 10.512 oz BMI 37.0 BP 139/68 Blood Pressure Location Lt brachial Position Sitting Pulse 67 Intake Visit Reasons: Gastroesophageal reflux disease (GERD) Intake Note: Patient presents to in office visit today as a new patient for GERD. CC: Patient c/o constipation d/t methadone treatment. He also states I feel my stomach burning and sometimes I eat and throw up . He states he is taking OTC Pepcid for heartburn and it helps a little bit. 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 Patient reports that he has been having epigastric discomfort with severe dyspepsia for over a year now. Patient was seen couple weeks ago in the emergency room for nausea, vomiting and diarrhea. Patient was given GI cocktail and his symptoms went away, however patient did not have any blood work done at all. Patient reports that he is moving his bowels, however he does not feel like he empties completely. Currently patient is on methadone daily. Patient was given Pepcid by his PCP and took 20 mg this morning. Patient states that Pepcid helps a little bit, however he continues to have epigastric discomfort. Patient denies any chest pain or shortness of breath. Denies any nausea today. Since last seen in the ER 2 weeks ago his symptoms got little better. Unsure if he had any food poisoning, does not remember anything different in his diet. [facility] Medical History (Updated 07/28/23 @ 16:39 by TROY Gallardo) Methadone maintenance therapy patient Smoking Polysubstance abuse Heart attack Surgical History (Updated 07/28/23 @ 16:39 by TROY Gallardo) H/O heart artery stent H/O cardiac catheterization Family History Maternal Aunt Cancer Social History Alcohol intake: former Patient Tobacco Use Status: Current everyday Tobacco user Cigarettes Per Day: 10 Substance Use Type: Heroin Review of Systems Const Denies weight gain and Denies weight loss ENT Reports no additional complaints, Denies dysphagia and Denies odynophagia Card Reports no additional complaints Resp Reports no additional complaints GI Reports abdominal pain, Denies belching, Denies melena, Reports bloating, Reports constipation, Denies dysphagia, Denies excessive flatus, Reports dyspepsia, Reports heartburn, Denies diarrhea, Denies loose stools, Denies nausea, Denies odynophagia and Denies vomiting Reports no additional complaints Musc Reports no additional complaints Neuro Reports no additional complaints Psych Reports no additional complaints Endo Reports no additional complaints Physical Exam Vital Signs: Last Vital Signs Pulse 67 07/28/23 16:04 BP 139/68 07/28/23 16:04 BMI result Body Mass Index 37.0 Const General: healthy appearing, no acute distress and well developed Nutritional Appearance: obese Orientation/consciousness: patient oriented x3 Resp Effort & Inspection: normal respiratory effort, able to speak in complete sentences, no tracheal deviation and symmetric chest movement Auscultation: clear to auscultation bilaterally Cardio Rate: regular rate GI Inspection: Yes normal to inspection, No distended and Yes obesity Palpation (GI): Soft to palpation, not firm, nontender and No hepatosplenomegaly present Auscultation: normal bowel sounds General: Yes no CVA tenderness Back/Spine/Pelvis Back: no CVA tenderness Skin General skin exam: elasticity normal, turgor normal and dry skin Neuro General: patient oriented x3 Psych Appearance: grossly normal Mental Status: mental status grossly normal Assessment & Plan Assessment & Plan (1) GERD (gastroesophageal reflux disease): Code(s): K21.9 - Gastro-esophageal reflux disease without esophagitis Qualifiers: Esophagitis presence: esophagitis presence not specified Qualified Code(s): K21.9 - Gastro-esophageal reflux disease without esophagitis (2) Dyspepsia: Code(s): R10.13 - Epigastric pain (3) Postprandial epigastric pain: Code(s): R10.13 - Epigastric pain (4) Abdominal bloating: Code(s): R14.0 - Abdominal distension (gaseous) (5) Constipation: Code(s): K59.00 - Constipation, unspecified Qualifiers: Constipation type: drug induced constipation Qualified Code(s): K59.03 - Drug induced constipation Plan Patient will return to the office tomorrow after work for H pylori testing. He took dose of Pepcid this morning. We will treat empirically if positive. Patient will hold Pepcid tomorrow. I will start him on pantoprazole 40 mg half an hour before breakfast and he can take Pepcid at night time. Patient was encouraged to avoid dietary triggers and late night snacking. Staying upright for minimum 3 hours after meals discussed with patient. Patient will start taking MiraLax in the morning and senna at nighttime to help him move his bowels. Patient was also encouraged to increase fluid intake and activity to promote better bowel motility. I will see him in 2 months, sooner on as needed basis. If patient continues with symptoms he will call our office. He might be sent for upper endoscopy to rule out gastritis, esophagitis, duodenitis, Bradley's. Patient is agreeable to this plan and verbalizes understanding of instructions. He was given the opportunity to ask questions all questions answered. Thank you for allowing me to participate in his care Orders: Orders H Pylori Breath Test Today Medications: New sennosides (Natural Senna Laxative) 17.2 mg (2 x 8.6 mg) PO BEDTIME 60 tabs 3RF constipation K59.00 - Constipation, unspecified polyethylene glycol 3350 (Miralax) 17 grams PO DAILY 510 grams 2RF pantoprazole take one tablet half an hour before breakfast 40 mg PO DAILY 30 tabs 2RF K21.9 - Gastro-esophageal reflux disease without esophagitis Coding Level of Care Code New Pt Level 4 (68588) Diagnoses Gastroesophageal reflux disease, unspecified whether esophagitis present K21.9 Esophagitis presence: esophagitis presence not specified Dyspepsia R10.13 Postprandial epigastric pain R10.13 Abdominal bloating R14.0 Drug-induced constipation K59.03 Constipation type: drug induced constipation Time Spent (min) 45 Comment 30 minutes spent with patient and additional 15 minutes spent reviewing his records
[2023-07-28 16:04] VITALS: BP 139/68; PULSE 67; BMI 37.0
== END 2023-07-28 16:43 | disposition home or self-care (01) ==
LOC: HO.HGI 16:01
PROVIDERS: PCP Nurse Practitioner Primary Care; Visit Provider Nurse Practitioner Family
DX: K21.9 Gastro-esophageal reflux disease without esophagitis (principal); R10.13 Epigastric pain; R14.0 Abdominal distension (gaseous); K59.03 Drug induced constipation
CPT/HCPCS: 99204

== ENCOUNTER → 2023-07-28 16:00 | Outpatient (BNVA) | payer OTHER, SELFPAY | PROVIDERS: PCP Nurse Practitioner Primary Care; Visit Provider Nurse Practitioner Family | DX: K21.9 Gastro-esophageal reflux disease without esophagitis (principal); K59.03 Drug induced constipation; R10.13 Epigastric pain; R14.0 Abdominal distension (gaseous) | CPT/HCPCS: 99212 ==

== ENCOUNTER 2023-07-29 15:56 | Outpatient (REF) | payer MEDICAID, SELFPAY ==
[2023-07-31 12:14] LABS: H Pylori Breath Test Negative (Negative)
== END 2023-07-29 15:57 | disposition home or self-care (01) ==
LOC: HO.LNP 15:56
PROVIDERS: PCP Nurse Practitioner Primary Care; Visit Provider Nurse Practitioner Family
DX: Z11.2 Encounter for screening for other bacterial diseases (principal)
CPT/HCPCS: 83013; 99211

== ENCOUNTER 2023-08-09 16:08 | Emergency (ER) | payer OTHER, SELFPAY ==
[2023-08-09 16:28] VITALS: BP 120/72; PULSE 69; RESP 16; TEMP 36.2; O2SAT 95; BMI 36.2
[2023-08-09 17:27] LABS: MANUAL DIFF FLAG NO
[2023-08-09 17:44] LABS: Alanine Aminotransferase 21 U/L (0-40); Albumin Level 3.7 g/dL (3.5-5.0); Alkaline Phosphatase 83 U/L (39-117); Anion Gap 11 (12-20); Aspartate Amino Transferase 18 U/L (5-37); Basophils Absolute Auto 0.1 X10*3/uL (0.0-0.2); Basophils Percent Auto 1.4 % (0-2); Bilirubin Total 0.2 mg/dL (0.0-1.0); Blood Urea Nitrogen 14 mg/dL (9-16); Carbon Dioxide 26 mmol/L (22-29); Chloride 107 mmol/L (96-108); Creatinine Clr Calc Pharmacy 137.7; Eosinophils Absolute Auto 0.3 X10*3/uL (0.0-0.4); Eosinophils Percent Auto 4.9 % (0-4); Estimated Glomerular Filt Rate > 60; Glucose Random 103 mg/dL (60-115); Hematocrit 40.9 % (42.0-52.0); Hemoglobin 13.6 g/dl (14.0-18.0); Imm Gran Abs Auto 0.01 X10*3/uL (0.00-0.03); Imm Gran Pct Auto 0.2 % (0.0-0.4); Lipase 13 U/L (8-78); Lymphocytes Absolute Auto 3.3 X10*3/uL (1.2-4.9); Lymphocytes Percent Auto 49.9 % (20-40); Mean Corpuscular HGB Conc 33.3 g/dl (31.0-36.0); Mean Corpuscular Hemoglobin 29.1 pg (27.0-33.0); Mean Corpuscular Volume 87.4 fL (80.0-98.0); Mean Platelet Volume 9.5 fL (9.4-12.4); Monocytes Absolute Auto 0.5 X10*3/uL (0.1-1.2); Monocytes Percent Auto 7.9 % (2-11); Neutrophils Absolute Auto 2.3 x10*3/uL (2.0-8.3); Neutrophils Percent Auto 35.7 % (45-73); Platelet Count 287 X10*3/uL (160-400); Potassium 3.5 mmol/L (3.3-5.1); Red Blood Count 4.68 X10*6/uL (4.60-5.80); Red Cell Distribution Width 13.3 % (11.0-16.0); Sodium 140 mmol/L (135-145); Total Protein 7.2 g/dL (6.5-8.0); White Blood Count 6.6 X10*3/uL (4.8-10.8)
[2023-08-09 20:57] VITALS: BP 109/74; PULSE 70; RESP 16; TEMP 36.7; O2SAT 97
--- NOTE | 2023-08-09 21:30 | ED_ITS ---
HPI - Abdominal Pain General Chief Complaint: Abdominal Pain Stated Complaint: abdominal pain, headache Time Seen by Provider: 08/09/23 21:00 Source: patient Mode of arrival: ambulatory Limitations: no limitations History of Present Illness HPI narrative: Patient is a 58-year-old male who presents emergency department for evaluation of nausea, 3 episodes of bilious vomiting since earlier this morning. He believes it may be secondary to food that he ate last night. Denies any motion sick contacts. Denies constipation or diarrhea. Reports epigastric abdominal discomfort described as a burning sensation. Related Data Home Medications Medication Instructions Recorded Confirmed aspirin 81 mg tablet,delayed 81 mg PO DAILY 07/28/23 release atorvastatin 20 mg tablet 20 mg PO DAILY 07/28/23 carvedilol 3.125 mg tablet 3.125 mg PO BID 07/28/23 clopidogrel 75 mg tablet 75 mg PO DAILY 07/28/23 famotidine 20 mg tablet (Pepcid AC) 20 mg PO DAILY 07/28/23 methadone 10 mg/mL oral concentrate 95 mg PO DAILY 07/28/23 nicotine (polacrilex) 4 mg gum 4 mg PO Q2H PRN 07/28/23 Previous Rx's Medication Instructions Recorded ondansetron 4 mg disintegrating 4 mg PO DAILY PRN nausea and 07/02/23 tablet vomiting 5 days #10 tabs pantoprazole 40 mg tablet,delayed 40 mg PO DAILY #30 tabs 07/28/23 release polyethylene glycol 3350 17 17 g PO DAILY #510 grams 07/28/23 gram/dose oral powder (Miralax) sennosides 8.6 mg tablet (Natural 17.2 mg (2 x 8.6 mg) PO BEDTIME 07/28/23 Senna Laxative) constipation #60 tabs Allergies Allergy/AdvReac Type Severity Reaction Status Date / Time No Known Allergies Allergy Verified 08/09/23 16:28 Review of Systems Review of Systems Yes all other systems are reviewed and are negative PMFSH Past Medical History Attestation statement: The following information was validated with the patient. Source: old records reviewed Medical History Methadone maintenance therapy patient Smoking Polysubstance abuse Heart attack Surgical History H/O heart artery stent H/O cardiac catheterization Family History Family History Maternal Aunt Cancer Social History Social History Alcohol intake: former Patient Tobacco Use Status: Current everyday Tobacco user Cigarettes Per Day: 10 Substance Use Type: Heroin Advance Directives: No Advance Directives Information Provided: No Physical Exam ED Vital Signs: Vital Signs - 24 hr 08/09/23 16:28 08/09/23 20:57 Temperature 97.1 F 98.1 F Pulse Rate 69 70 Respiratory Rate 16 16 Blood Pressure 120/72 109/74 Pulse Oximetry 95 97 Oxygen Delivery Method Room Air Room Air BMI result Body Mass Index 36.2 Appearance: Alert.?Oriented to person, place and time. No acute distress.?Normal affect. Eyes: Pupils equal, round and reactive to light.? ENT: Pharynx normal.?? Neck: Normal inspection.? Neck supple.?? CVS: Heart sounds normal. Normal heart rate and rhythm.? Pulses normal.?? Respiratory: No respiratory distress.? Lung sounds clear to auscultation bilaterally?? Abdomen: Soft and non-tender. Normoactive bowel sounds. Skin: Skin warm and dry.? Normal skin color.? Extremities: No lower extremity edema.? Neuro: Moves all extremities spontaneously. Sensation intact bilaterally. No focal neuro deficits. Ambulates with normal steady gait. Medical Decision Making Medical Decision Making MDM Narrative: Patient is a 38-year-old male presenting to emergency department for evaluation nausea vomiting epigastric pain as per HPI, with symptom onset last night. Abdominal examination is benign. Patient had serum labs obtained prior to my assumption of care, after physical examination, advised patient will trial GI cocktail for symptoms, and review serum labs. Nursing staff advised me that he had left the department without completing treatment, he was not witnessed to be leaving but he was quite upset on the phone speaking with somebody and soon thereafter they noticed him walking out of the department. Differential Diagnosis Differential Diagnoses: The differential diagnosis associated with the presentation includes (Gastroenteritis, GERD, viral syndrome,) Lab Data [facility] Lab Attestation statement: I reviewed the patient's lab results. CBC is without leukocytosis, mild normocytic anemia. CMP overall unremarkable. Lipase within normal limits. 08/09/23 17:23 08/09/23 17:23 Labs: Lab Results 08/09/23 Range/Units 17:23 WBC 6.6 (4.8-10.8) X10*3/uL RBC 4.68 (4.60-5.80) X10*6/uL Hgb 13.6 L (14.0-18.0) g/dl Hct 40.9 L (42.0-52.0) % MCV 87.4 (80.0-98.0) fL MCH 29.1 (27.0-33.0) pg MCHC 33.3 (31.0-36.0) g/dl RDW 13.3 (11.0-16.0) % Plt Count 287 (160-400) X10*3/uL MPV 9.5 (9.4-12.4) fL Immature Gran % (Auto) 0.2 (0.0-0.4) % Neut % (Auto) 35.7 L (45-73) % Lymph % (Auto) 49.9 H (20-40) % [place] % (Auto) 7.9 (2-11) % Eos % (Auto) 4.9 H (0-4) % Baso % (Auto) 1.4 (0-2) % Lymph # (Auto) 3.3 (1.2-4.9) X10*3/uL [place] # (Auto) 0.5 (0.1-1.2) X10*3/uL Eos # (Auto) 0.3 (0.0-0.4) X10*3/uL Baso # (Auto) 0.1 (0.0-0.2) X10*3/uL Abs Immat Gran (auto) 0.01 (0.00-0.03) X10*3/uL Absolute Neuts (auto) 2.3 (2.0-8.3) x10*3/uL Absolute Nucleated RBC 0.000 (0.0-0.012) X10*3/uL Nucleated RBC % (auto) 0.0 (0.0-0.2) /100WBC Sodium 140 (135-145) mmol/L Potassium 3.5 (3.3-5.1) mmol/L Chloride 107 (96-108) mmol/L Carbon Dioxide 26 (22-29) mmol/L Anion Gap 11 L (12-20) BUN 14 (9-16) mg/dL Creatinine 0.94 (0.5-1.4) mg/dL Estim Creat Clear Calc 137.7 Estimated GFR > 60 Random Glucose 103 (60-115) mg/dL Calcium 9.0 (8.4-10.2) mg/dL Total Bilirubin 0.2 (0.0-1.0) mg/dL AST 18 (5-37) U/L ALT 21 (0-40) U/L Alkaline Phosphatase 83 (39-117) U/L Total Protein 7.2 (6.5-8.0) g/dL Albumin 3.7 (3.5-5.0) g/dL Lipase 13 (8-78) U/L External Record Review External record reviewed: Outpatient record Discharge Plan Discharge Clinical Impression: Abdominal pain Patient Disposition: Left W/O Completing Treatment Prescriptions: No Action ondansetron 4 mg tablet,disintegrating 4 mg PO DAILY PRN (Reason: nausea and vomiting) 5 Days Qty: 10 0RF atorvastatin 20 mg tablet 20 mg PO DAILY clopidogrel 75 mg tablet 75 mg PO DAILY carvedilol 3.125 mg tablet 3.125 mg PO BID aspirin 81 mg tablet,delayed release (DR/EC) 81 mg PO DAILY nicotine (polacrilex) 4 mg gum 4 mg PO Q2H PRN methadone 10 mg/mL concentrate 95 mg PO DAILY famotidine [Pepcid AC] 20 mg tablet 20 mg PO DAILY polyethylene glycol 3350 [Miralax] 17 gram/dose powder 17 g PO DAILY Qty: 510 2RF pantoprazole 40 mg tablet,delayed release (DR/EC) 40 mg PO DAILY Qty: 30 2RF Rx Instructions: take one tablet half an hour before breakfast sennosides [Natural Senna Laxative] 8.6 mg tablet 17.2 mg PO BEDTIME Qty: 60 3RF
--- NOTE | 2023-08-09 21:32 | PC.NURSE ---
pt not on stretcher when when to see him. provider is aware.
--- NOTE | 2023-08-09 21:59 | PC.NURSE ---
pt left without being seen
== END 2023-08-09 21:59 | disposition left against medical advice (07) ==
PROVIDERS: Emergency Provider Student in an Organized Health Care Education/Training Program; PCP Nurse Practitioner Primary Care
DX: R10.9 Unspecified abdominal pain (principal); R11.2 Nausea with vomiting, unspecified; Z79.899 Other long term (current) drug therapy
CPT/HCPCS: 36415; 80053; 83690; 85025; 99283

== ENCOUNTER 2023-09-04 19:44 | Emergency (ER) | payer OTHER, SELFPAY ==
--- NOTE | ~2023-09-04 | XR_ITS ---
EXAMINATION: XR CHEST CLINICAL INFORMATION: Pain. COMPARISON: 01/15/2023 TECHNIQUE: Frontal view of the chest was obtained. FINDINGS: No significant abnormality is noted involving the heart, lungs, mediastinum, bony thorax or soft tissues. XR/XR chest 1V IMPRESSION: Unremarkable examination.
[2023-09-04 20:06] VITALS: BP 154/102; PULSE 56; O2SAT 95
[2023-09-04 20:43] VITALS: BP 124/79; PULSE 57; RESP 18; TEMP 36.5; O2SAT 97; BMI 36.0
[2023-09-04 21:05] LABS: MANUAL DIFF FLAG NO
[2023-09-04 21:08] LABS: Basophils Absolute Auto 0.1 X10*3/uL (0.0-0.2); Basophils Percent Auto 1.2 % (0-2); Eosinophils Absolute Auto 0.2 X10*3/uL (0.0-0.4); Eosinophils Percent Auto 2.9 % (0-4); Hematocrit 42.6 % (42.0-52.0); Hemoglobin 14.2 g/dl (14.0-18.0); Imm Gran Abs Auto 0.03 X10*3/uL (0.00-0.03); Imm Gran Pct Auto 0.4 % (0.0-0.4); Lymphocytes Absolute Auto 1.7 X10*3/uL (1.2-4.9); Lymphocytes Percent Auto 22.9 % (20-40); Mean Corpuscular HGB Conc 33.3 g/dl (31.0-36.0); Mean Corpuscular Volume 86.9 fL (80.0-98.0); Mean Platelet Volume 9.3 fL (9.4-12.4); Monocytes Absolute Auto 0.5 X10*3/uL (0.1-1.2); Monocytes Percent Auto 6.8 % (2-11); Neutrophils Percent Auto 65.8 % (45-73); Platelet Count 309 X10*3/uL (160-400); Red Cell Distribution Width 13.6 % (11.0-16.0); White Blood Count 7.5 X10*3/uL (4.8-10.8)
[2023-09-04 21:22] LABS: Alanine Aminotransferase 24 U/L (0-40); Alkaline Phosphatase 87 U/L (39-117); Anion Gap 9 (12-20); Aspartate Amino Transferase 21 U/L (5-37); Bilirubin Direct 0.1 mg/dL (0.0-0.5); Bilirubin Total 0.5 mg/dL (0.0-1.0); Blood Urea Nitrogen 12 mg/dL (9-16); Calcium 9.8 mg/dL (8.4-10.2); Carbon Dioxide 29 mmol/L (22-29); Chloride 108 mmol/L (96-108); Creatinine Clr Calc Pharmacy 119.5; Estimated Glomerular Filt Rate > 60; Glucose Random 110 mg/dL (60-115); Lipase 11 U/L (8-78); Potassium 4.2 mmol/L (3.3-5.1); Sodium 142 mmol/L (135-145); Total Protein 7.8 g/dL (6.5-8.0)
--- NOTE | 2023-09-04 23:30 | PC.NURSE ---
Pt ca&ox4, no signs of distress. Pt reports waking up from his sleep with back and body 7/10 pain with an onset of 5pm. Pt reports he had n/v. Pt also reports receiving a vax on from his pcp not sure if its due to that. Plan of care ongoing.
[2023-09-05 00:14] VITALS: BP 135/72; PULSE 59; RESP 16; TEMP 36.9; O2SAT 98
--- NOTE | 2023-09-05 01:45 | ECG_ITS ---
Test Reason : abd pain Blood Pressure : / mmHG Vent. Rate : 053 BPM Atrial Rate : 053 BPM P-R Int : 174 ms QRS Dur : 090 ms QT Int : 456 ms P-R-T Axes : 023 060 034 degrees QTc Int : 427 ms Sinus bradycardia Otherwise normal ECG When compared with ECG of 18-APR-2023 18:31, No significant change was found Referred By: Court Foreman Electronically Signed By:VICENTE SILVA MD
--- NOTE | 2023-09-05 01:47 | ED.ABDPAIN ---
HPI - Abdominal Pain General Chief Complaint: Abdominal Pain Stated Complaint: BACK PAIN,DIAPHORETIC,VOMITING Time Seen by Provider: 09/05/23 01:37 Source: patient Mode of arrival: ambulatory Limitations: no limitations History of Present Illness HPI narrative: Insert room complaining of 2 days of abdominal distension, nausea vomiting and epigastric burning sensation. Patient states that he is known to have GERD. Patient has been taking Pepcid at home. Patient states that a few weeks ago, he was tested for H pylori but he does not have the results yet. Patient denies fever chills, no cough, no chest pain or shortness of breath. No UTI symptoms. Related Data Home Medications Medication Instructions Recorded Confirmed aspirin 81 mg tablet,delayed 81 mg PO DAILY 07/28/23 release atorvastatin 20 mg tablet 20 mg PO DAILY 07/28/23 carvedilol 3.125 mg tablet 3.125 mg PO BID 07/28/23 clopidogrel 75 mg tablet 75 mg PO DAILY 07/28/23 famotidine 20 mg tablet (Pepcid AC) 20 mg PO DAILY 07/28/23 methadone 10 mg/mL oral concentrate 95 mg PO DAILY 07/28/23 nicotine (polacrilex) 4 mg gum 4 mg PO Q2H PRN 07/28/23 Previous Rx's Medication Instructions Recorded ondansetron 4 mg disintegrating 4 mg PO DAILY PRN nausea and 07/02/23 tablet vomiting 5 days #10 tabs pantoprazole 40 mg tablet,delayed 40 mg PO DAILY #30 tabs 07/28/23 release polyethylene glycol 3350 17 17 g PO DAILY #510 grams 07/28/23 gram/dose oral powder (Miralax) sennosides 8.6 mg tablet (Natural 17.2 mg (2 x 8.6 mg) PO BEDTIME 07/28/23 Senna Laxative) constipation #60 tabs omeprazole 20 mg capsule,delayed 20 mg PO DAILY #30 caps 09/05/23 release Allergies Allergy/AdvReac Type Severity Reaction Status Date / Time No Known Allergies Allergy Verified 09/04/23 20:43 Review of Systems Review of Systems Constitutional : No Weight loss, No Fever, No Chills, No Night Sweats, No Fatigue, No Malaise ENT/Mouth : No Hearing loss, No Ear Pain, No Nasal Congestion, No Sinus Pain, No Hoarseness, No sore throat, No Rhinorrhea, No Swallowing Difficulty Eyes: No Eye Pain, No Swelling, No Redness, No Foreign Body, No Discharge, No Vision Changes Cardiovascular : No Chest Pain, No SOB, No Dyspnea on Exertion, No Orthopnea, No Edema, No Palpitations Respiratory : No Cough, No Sputum, No Wheezing, No Smoke Exposure, No Dyspnea Gastrointestinal complaining of nausea and vomiting, no diarrhea, complaining of epigastric burning sensation. Genitourinary : no irregular bleeding, No Dysuria, No Urinary Frequency, No Hematuria, No Urinary Incontinence, No Urgency, No Flank Pain, No Urinary Flow Changes, No Hesitancy Musculoskeletal : No joint pain, No Myalgias, No Joint Swelling Skin : No Skin Lesions, No rash Neuro : No Weakness, No Numbness, No Paresthesias, No Loss of Consciousness, No Dizziness, No Headache Psych : No Anxiety/Panic, No Depression, No SI/HI/AH/VH, No Social Issues, Heme/Lymph: No Bruising, No Bleeding,No Lymphadenopathy Endocrine : No Polyuria, No Polydipsia, No Temperature Intolerance [facility] Past Medical History Medical History (Updated 09/05/23 @ 02:[address] Foreman MD) GERD (gastroesophageal reflux disease) Methadone maintenance therapy patient Smoking Polysubstance abuse Heart attack Surgical History H/O heart artery stent H/O cardiac catheterization Family History Family History Maternal Aunt Cancer Social History Social History Alcohol intake: former Patient Tobacco Use Status: Current everyday Tobacco user Cigarettes Per Day: 10 Smoked in Last 30 Days: Yes Use of substances other than those prescribed or required for medical reasons: Yes Substance Use Type: Marijuana Advance Directives: No Advance Directives Information Provided: No Physical Exam ED Vital Signs: Vital Signs - 24 hr 09/04/23 20:43 09/05/23 00:14 Temperature 97.7 F 98.4 F Pulse Rate 57 59 Respiratory Rate 18 16 Blood Pressure 124/79 135/72 Pulse Oximetry 97 98 Oxygen Delivery Method Room Air Room Air BMI result Body Mass Index 36.0 Const Other: Appearance: Alert. Oriented X3. No acute distress. Eyes: Pupils equal, round and reactive to light. ENT: Pharynx normal. Neck: Normal inspection. Neck supple. No lymph nodes noted. No crepitus CVS: Normal heart rate and rhythm. Pulses normal. Normal S1 and S2 Respiratory: No respiratory distress. Breath sounds normal. No Wheezing. No rales Abdomen: Soft and nontender. No rigidity. No distention. Skin: Skin warm and dry. Normal skin color. Normal skin turgor. Extremities: No lower extremity edema. No Lacerations. No Rash Neuro: Oriented X 3. No motor deficit. No sensory deficit. Moving all extremities. No slurred speech. CN 2 through 12 grossly intact Psych: calm, cooperative, normal affect Course Course Course Narrative: -patient getting a GI cocktail. -x-ray to rule out free air pending, given patient's benign physical exam, there is low suspicion of peptic ulcer perforation Medical Decision Making Medical Decision Making [facility] Narrative: -my interpretation of labs: Normal hematology and chemistry, LFTs. Troponin negative -I reviewed patient's medical records. His outpatient lab work, H pylori breath test was negative -I discussed with the patient that eventually he may be a good candidate for an upper endoscopy. Patient will follow-up with his wellness assistant and discussed this. -my interpretation of EKG: Normal sinus rhythm, heart rate 53, no ST segment depression or elevation, no T-wave inversion, QTC 427 -my interpretation of chest x-ray: No free air. -patient likely has peptic ulcer disease. -I switched patient home medication from Pepcid to omeprazole. Differential Diagnosis Differential Diagnoses: The differential diagnosis associated with the presentation includes (Peptic ulcer disease, H pylori, perforated ulcer) Lab Data [facility] Lab Attestation statement: I reviewed the patient's lab results. 09/04/23 21:01 09/04/23 21:01 Labs: Lab Results 09/04/23 Range/Units 21:01 WBC 7.5 (4.8-10.8) X10*3/uL RBC 4.90 (4.60-5.80) X10*6/uL Hgb 14.2 (14.0-18.0) g/dl Hct 42.6 (42.0-52.0) % MCV 86.9 (80.0-98.0) fL MCH 29.0 (27.0-33.0) pg MCHC 33.3 (31.0-36.0) g/dl RDW 13.6 (11.0-16.0) % Plt Count 309 (160-400) X10*3/uL MPV 9.3 L (9.4-12.4) fL Immature Gran % (Auto) 0.4 (0.0-0.4) % Neut % (Auto) 65.8 (45-73) % Lymph % (Auto) 22.9 (20-40) % [place] % (Auto) 6.8 (2-11) % Eos % (Auto) 2.9 (0-4) % Baso % (Auto) 1.2 (0-2) % Lymph # (Auto) 1.7 (1.2-4.9) X10*3/uL [place] # (Auto) 0.5 (0.1-1.2) X10*3/uL Eos # (Auto) 0.2 (0.0-0.4) X10*3/uL Baso # (Auto) 0.1 (0.0-0.2) X10*3/uL Abs Immat Gran (auto) 0.03 (0.00-0.03) X10*3/uL Absolute Neuts (auto) 5.0 (2.0-8.3) x10*3/uL Absolute Nucleated RBC 0.000 (0.0-0.012) X10*3/uL Nucleated RBC % (auto) 0.0 (0.0-0.2) /100WBC Sodium 142 (135-145) mmol/L Potassium 4.2 (3.3-5.1) mmol/L Chloride 108 (96-108) mmol/L Carbon Dioxide 29 (22-29) mmol/L Anion Gap 9 L (12-20) BUN 12 (9-16) mg/dL Creatinine 1.08 (0.5-1.4) mg/dL Estim Creat Clear Calc 119.5 Estimated GFR > 60 Random Glucose 110 (60-115) mg/dL Calcium 9.8 D (8.4-10.2) mg/dL Total Bilirubin 0.5 (0.0-1.0) mg/dL Direct Bilirubin 0.1 (0.0-0.5) mg/dL AST 21 (5-37) U/L ALT 24 (0-40) U/L Alkaline Phosphatase 87 (39-117) U/L Troponin I High Sens < 2.7 (<3.5-35.0) ng/L Total Protein 7.8 (6.5-8.0) g/dL Albumin 4.0 (3.5-5.0) g/dL Lipase 11 (8-78) U/L Independent Interpretation I performed an independent interpretation of an: EKG Medications Administered Discontinued Medications Generic Name Dose Route Start Last Admin Trade Name Freq PRN Reason Stop Dose Admin Al Hydroxide/Mg Hydroxide 30 ml 09/05/23 01:44 09/05/23 02:08 Magnesium Hydrox/Alum Hydrox 30 Ml Oral.Susp PO 09/05/23 01:45 30 ml ONCE ONE Administration Famotidine 20 mg 09/05/23 01:44 09/05/23 02:08 Famotidine 20 Mg Tablet PO 09/05/23 01:45 20 mg ONCE ONE Administration Lidocaine HCl 15 ml 09/05/23 01:44 09/05/23 02:08 Lidocaine Hcl Viscous 2 % 15 Ml Solution MUCOUS MEM 09/05/23 01:45 15 ml ONCE ONE Administration Ondansetron HCl 4 mg 09/05/23 01:47 09/05/23 02:08 Ondansetron Odt 4 Mg Tab.Rapdis TRANSLINGU 09/05/23 01:48 4 mg ONCE ONE Administration Discharge Plan Discharge Clinical Impression: Peptic ulcer disease Patient Disposition: Home, Self-Care Instructions: Peptic Ulcer (ED) Additional Instructions: Please follow-up with your primary care physician tomorrow. If you have any worsening or new symptoms, please return to the emergency room or call 911 Prescriptions: New omeprazole 20 mg capsule,delayed release(DR/EC) 20 mg PO DAILY Qty: 30 0RF No Action ondansetron 4 mg tablet,disintegrating 4 mg PO DAILY PRN (Reason: nausea and vomiting) 5 Days Qty: 10 0RF atorvastatin 20 mg tablet 20 mg PO DAILY clopidogrel 75 mg tablet 75 mg PO DAILY carvedilol 3.125 mg tablet 3.125 mg PO BID aspirin 81 mg tablet,delayed release (DR/EC) 81 mg PO DAILY nicotine (polacrilex) 4 mg gum 4 mg PO Q2H PRN methadone 10 mg/mL concentrate 95 mg PO DAILY famotidine [Pepcid AC] 20 mg tablet 20 mg PO DAILY polyethylene glycol 3350 [Miralax] 17 gram/dose powder 17 g PO DAILY Qty: 510 2RF pantoprazole 40 mg tablet,delayed release (DR/EC) 40 mg PO DAILY Qty: 30 2RF Rx Instructions: take one tablet half an hour before breakfast sennosides [Natural Senna Laxative] 8.6 mg tablet 17.2 mg PO BEDTIME Qty: 60 3RF
[2023-09-05] MEDS: Ondansetron ODT 4 MG TAB.RAPDIS TRANSLINGU (02:08)
[2023-09-05] MEDS: Lidocaine HCl Viscous 2 % 15 ML SOLUTION MUCOUS MEM (02:08)
[2023-09-05] MEDS: Famotidine 20 MG TABLET PO (02:08)
[2023-09-05] MEDS: Magnesium Hydrox/Alum Hydrox 30 ML ORAL.SUSP PO (02:08)
--- NOTE | 2023-09-05 02:09 | PC.NURSE ---
Pt medicated per aug. Plan of care ongoing.
[2023-09-05 02:10] LABS: Troponin-I High Sensitivity < 2.7 ng/L (<3.5-35.0)
[2023-09-05 02:58] VITALS: BP 136/91; PULSE 64; RESP 16; TEMP 36.8; O2SAT 98
[2023-09-05 03:19] VITALS: BP 136/91; PULSE 64; RESP 16; TEMP 36.8; O2SAT 98
== END 2023-09-05 03:22 | disposition home or self-care (01) ==
PROVIDERS: Emergency Provider Emergency Medicine
DX: K27.9 Peptic ulcer, site unspecified, unspecified as acute or chronic, without hemorrhage or perforation (principal); R11.2 Nausea with vomiting, unspecified; R10.13 Epigastric pain; R14.0 Abdominal distension (gaseous)
CPT/HCPCS: 36415; 71045; 80053; 82248; 83690; 84484; 85025; 93005; 99284

== ENCOUNTER → 2023-09-05 01:45 | Outpatient (BNV) | payer SELFPAY | PROVIDERS: Emergency Provider Emergency Medicine; Visit Provider Internal Medicine Cardiovascular Disease | DX: R00.1 Bradycardia, unspecified (principal) | CPT/HCPCS: 93010 ==

== ENCOUNTER 2023-09-28 16:25 | Outpatient (AMB) | payer OTHER, SELFPAY ==
[2023-09-28 16:28] VITALS: BP 129/63; PULSE 65; BMI 36.9
--- NOTE | 2023-09-28 16:28 | MHC.OFFVIS ---
Vital Signs 09/28/23 16:28 Height 5 ft 11 in Weight 264 lb 8.875 oz BMI 36.9 BP 129/63 Blood Pressure Location Lt brachial Position Sitting Pulse 65 Intake Visit Reasons: 2 months f/u GERD Intake Note: Melecio returns in 2 months follow up of GERD. CC: Patient seen in the ER on 09/04 with c/o abdominal pain and was told that he has a peptic ulcer. Per patient his GERD medication was changed to Omeprazole 20 mg daily and this has been working good. Per patient he has been doing well but continues having RUQ abdominal pain. Inspector Assembly Required: No Allergies No Known Allergies Allergy (Verified 09/28/23 16:33) HPI HPI 2 months f/u GERD: Details: LAST VISIT GERD (gastroesophageal reflux disease) Dyspepsia Postprandial epigastric pain Abdominal bloating Constipation Plan Patient will return to the office tomorrow after work for H pylori testing. He took dose of Pepcid this morning. We will treat empirically if positive. Patient will hold Pepcid tomorrow. I will start him on pantoprazole 40 mg half an hour before breakfast and he can take Pepcid at night time. Patient was encouraged to avoid dietary triggers and late night snacking. Staying upright for minimum 3 hours after meals discussed with patient. Patient will start taking MiraLax in the morning and senna at nighttime to help him move his bowels. Patient was also encouraged to increase fluid intake and activity to promote better bowel motility. I will see him in 2 months, sooner on as needed basis. If patient continues with symptoms he will call our office. He might be sent for upper endoscopy to rule out gastritis, esophagitis, duodenitis, Bradley's. Patient is agreeable to this plan and verbalizes understanding of instructions. He was given the opportunity to ask questions all questions answered. ? Thank you for allowing me to participate in his care Orders Orders H Pylori Breath Test Today Medications New sennosides (Natural Senna Laxative) 17.2 mg (2 x 8.6 mg) PO BEDTIME 60 tabs 3RF constipation K59.00 polyethylene glycol 3350 (Miralax) 17 grams PO DAILY 510 grams 2RF pantoprazole take one tablet half an hour before breakfast 40 mg PO DAILY 30 tabs 2RF K21.9 TODAY'S VISIT: Patient is here today for follow-up. Patient was seen in the ER on 04 of September for epigastric discomfort, postprandial abdominal bloating, nausea and vomiting. Patient was seen in my office in July was placed on Pepcid just so he can get H pylori testing and was supposed to start taking omeprazole. Patient did not switch and was on Pepcid. ED provider switch him to omeprazole. He reports to be doing well with that. Patient denies any dyspepsia, dysphagia or odynophagia. Denies any melena, hematochezia, unintentional weight loss or ribbon like stools. Patient sees cardiology for previous [place] and stents and will need clearance before going for endoscopy. Patient denies any issues with anesthesia in the past. No history of sleep apnea. Patient is currently on Plavix and aspirin. [facility] Medical History GERD (gastroesophageal reflux disease) Methadone maintenance therapy patient Smoking Polysubstance abuse Heart attack Surgical History H/O heart artery stent H/O cardiac catheterization Family History Maternal Aunt Cancer Social History Alcohol intake: former Patient Tobacco Use Status: Current everyday Tobacco user Cigarettes Per Day: 10 Substance Use Type: Marijuana Physical Exam Vital Signs: Last Vital Signs Pulse 65 09/28/23 16:28 BP 129/63 09/28/23 16:28 BMI result Body Mass Index 36.9 Assessment & Plan Assessment & Plan (1) GERD (gastroesophageal reflux disease): Code(s): K21.9 - Gastro-esophageal reflux disease without esophagitis Qualifiers: Esophagitis presence: esophagitis presence not specified Qualified Code(s): K21.9 - Gastro-esophageal reflux disease without esophagitis (2) Dyspepsia: Code(s): R10.13 - Epigastric pain (3) Postprandial epigastric pain: Code(s): R10.13 - Epigastric pain (4) Abdominal bloating: Code(s): R14.0 - Abdominal distension (gaseous) (5) Constipation: Code(s): K59.00 - Constipation, unspecified Qualifiers: Constipation type: slow transit constipation Qualified Code(s): K59.01 - Slow transit constipation Plan Continue omeprazole every morning. Patient will be scheduled for upper endoscopy as he continues to have occasional acid reflux. Patient sees cardiology Dr. Nicholas Connell and will need a clearance due to past history of [place] and stents. Currently on Plavix will need directions on went to stop. Patient can continue taking Senokot 2 tablets every evening and MiraLax on as needed basis. Patient denies melena, hematochezia, unintentional weight loss or ribbon like stools. I will see patient after the procedure, sooner on as needed basis. He is agreeable to this plan and verbalizes understanding of instructions. He was given the opportunity to ask questions and all questions answered. Thank you for allowing me to participate in his care Medications: Refilled omeprazole 20 mg PO DAILY 90 caps 2RF
== END 2023-09-28 17:06 | disposition home or self-care (01) ==
PROVIDERS: PCP Nurse Practitioner Primary Care; Visit Provider Nurse Practitioner Family
DX: K21.9 Gastro-esophageal reflux disease without esophagitis (principal); R10.13 Epigastric pain; R14.0 Abdominal distension (gaseous); K59.01 Slow transit constipation
CPT/HCPCS: 99214

== ENCOUNTER → 2023-09-28 16:25 | Outpatient (BNVA) | payer OTHER, SELFPAY | PROVIDERS: PCP Nurse Practitioner Primary Care; Visit Provider Nurse Practitioner Family | DX: K21.9 Gastro-esophageal reflux disease without esophagitis (principal); K59.01 Slow transit constipation; R14.0 Abdominal distension (gaseous); R10.13 Epigastric pain; Z79.891 Long term (current) use of opiate analgesic | CPT/HCPCS: 99212 ==

== ENCOUNTER 2023-10-22 07:09 | Emergency (ER) | payer OTHER, SELFPAY ==
--- NOTE | 2023-10-22 | ECG_ITS ---
Test Reason : substance Blood Pressure : / mmHG Vent. Rate : 080 BPM Atrial Rate : 080 BPM P-R Int : 170 ms QRS Dur : 076 ms QT Int : 386 ms P-R-T Axes : 042 055 040 degrees QTc Int : 445 ms Normal sinus rhythm Normal ECG When compared with ECG of 05-SEP-2023 01:49, Vent. rate has increased BY 27 BPM Referred By: Generic ED Physician Electronically Signed By:KATIE BATISTA
[2023-10-22 07:21] VITALS: BP 133/75; BP 136/98; PULSE 102; PULSE 87; RESP 16; TEMP 36.9; O2SAT 96; O2SAT 98; BMI 36.8
[2023-10-22 07:46] LABS: MANUAL DIFF FLAG NO
[2023-10-22 07:47] LABS: Basophils Absolute Auto 0.1 X10*3/uL (0.0-0.2); Eosinophils Absolute Auto 0.1 X10*3/uL (0.0-0.4); Eosinophils Percent Auto 1.3 % (0-4); Hematocrit 41.8 % (42.0-52.0); Hemoglobin 14.1 g/dl (14.0-18.0); Imm Gran Abs Auto 0.02 X10*3/uL (0.00-0.03); Imm Gran Pct Auto 0.2 % (0.0-0.4); Lymphocytes Absolute Auto 0.5 X10*3/uL (1.2-4.9); Lymphocytes Percent Auto 6.1 % (20-40); Mean Corpuscular HGB Conc 33.7 g/dl (31.0-36.0); Mean Platelet Volume 9.5 fL (9.4-12.4); Monocytes Absolute Auto 0.8 X10*3/uL (0.1-1.2); Monocytes Percent Auto 9.6 % (2-11); Neutrophils Absolute Auto 6.8 x10*3/uL (2.0-8.3); Neutrophils Percent Auto 81.8 % (45-73); Platelet Count 290 X10*3/uL (160-400); Red Blood Count 4.86 X10*6/uL (4.60-5.80); Red Cell Distribution Width 13.5 % (11.0-16.0); White Blood Count 8.3 X10*3/uL (4.8-10.8)
[2023-10-22 08:03] LABS: Alanine Aminotransferase 28 U/L (0-40); Albumin Level 4.1 g/dL (3.5-5.0); Alkaline Phosphatase 87 U/L (39-117); Anion Gap 13 (12-20); Aspartate Amino Transferase 29 U/L (5-37); Bilirubin Total 0.4 mg/dL (0.0-1.0); Blood Urea Nitrogen 15 mg/dL (9-16); Calcium 9.6 mg/dL (8.4-10.2); Carbon Dioxide 26 mmol/L (22-29); Chloride 101 mmol/L (96-108); Creatinine Clr Calc Pharmacy 126.7; Estimated Glomerular Filt Rate > 60; Glucose Random 105 mg/dL (60-115); Potassium 3.8 mmol/L (3.3-5.1); Sodium 136 mmol/L (135-145)
[2023-10-22 08:11] LABS: Troponin-I High Sensitivity < 2.7 ng/L (<3.5-35.0)
--- NOTE | 2023-10-22 08:13 | PC.NURSE ---
pt [place] from home in search for detox. pt has been sober x 1 year and then last night used heroin intranasally around 0400 in the morning. pt c.o n/v/generalized malaise. pt denies SI/HI. states he just wanted to get high. pt a&ox4 upon ED arrival. vss and up to date. pt changed over by security - belongings placed in linen closet in pod. labs obtained/ekg performed by tech. pt aware UA is needed. no sob/wob noted. respirations even and unlabored. plan of care ongoing. call curtis placed within reach.
[2023-10-22 08:14] LABS: Acetaminophen LAB < 3 mcg/mL (<30); Salicylate < 5.0 mg/dL (15-30)
--- NOTE | 2023-10-22 08:39 | ED_ITS ---
HPI - Psych General Chief Complaint: ETOH/Substance Use Stated Complaint: VOMITING WANTS DETOX Time Seen by Provider: 10/22/23 08:05 Source: patient Mode of arrival: ambulatory Limitations: no limitations History of Present Illness HPI Narrative: 38 yo male with PMH of opiate use disorder, GERD, CAD here with c/o still taking his home dose methadone 95mg - did take it today. He notes he has been sniffing 4 t0 8 bags of heroin for the past several days. He denies SI. He wants to go to detox. He feels n/v and his body hurts. No fevers. He does not inject. complaint: substance abuse Onset (ago): day(s) (several ) Duration: constant History of same: Yes Relieving factors: none Exacerbating factors: drug use Context: recent drug abuse Associated psychiatric symptoms: none Associated symptoms: nausea and other (body aches) Treatments prior to arrival: other (took his methadone this AM) Related Data Home Medications ?Medication ?Instructions ?Recorded ?Confirmed aspirin 81 mg tablet,delayed 81 mg PO DAILY 07/28/23 release atorvastatin 20 mg tablet 20 mg PO DAILY 07/28/23 carvedilol 3.125 mg tablet 3.125 mg PO BID 07/28/23 clopidogrel 75 mg tablet 75 mg PO DAILY 07/28/23 famotidine 20 mg tablet (Pepcid AC) 20 mg PO DAILY 07/28/23 methadone 10 mg/mL oral concentrate 95 mg PO DAILY 07/28/23 nicotine (polacrilex) 4 mg gum 4 mg PO Q2H PRN 07/28/23 Previous Rx's ?Medication ?Instructions ?Recorded ondansetron 4 mg disintegrating 4 mg PO DAILY PRN nausea and 07/02/23 tablet vomiting 5 days #10 tabs pantoprazole 40 mg tablet,delayed 40 mg PO DAILY #30 tabs 07/28/23 release polyethylene glycol 3350 17 17 g PO DAILY #510 grams 07/28/23 gram/dose oral powder (Miralax) sennosides 8.6 mg tablet (Natural 17.2 mg (2 x 8.6 mg) PO BEDTIME 07/28/23 Senna Laxative) constipation #60 tabs omeprazole 20 mg capsule,delayed 20 mg PO DAILY #90 caps 09/28/23 release Allergies Allergy/AdvReac Type Severity Reaction Status Date / Time No Known Allergies Allergy Verified 10/22/23 07:22 Review of Systems 2 Review of Systems: Constitutional : No Weight loss, No Fever, No Chills ENT/Mouth : No sore throat, No Rhinorrhea Eyes: No Swelling, No Redness Cardiovascular : No Chest Pain, No SOB, NoEdema Respiratory : No Cough, No Sputum, No Wheezing Gastrointestinal : Positive Nausea, Positive Vomiting, no Diarrhea, no abdominal Pain, No Hematochezia, No Melena Genitourinary : No Dysuria, No Urinary Frequency, No Hematuria, No Urgency Musculoskeletal : No joint pain, pos Myalgias, No Joint Swelling Skin : No Skin Lesions, No rash Neuro : No Weakness, No Numbness, No Dizziness, No Headache Psych : No Anxiety/Panic, No Depression All other systems reviewed and are negative. [facility] Past Medical History Attestation statement: The following information was validated with the patient. Source: old records reviewed Medical History GERD (gastroesophageal reflux disease) Methadone maintenance therapy patient Smoking Polysubstance abuse Heart attack Surgical History H/O heart artery stent H/O cardiac catheterization Family History Family History Maternal Aunt Cancer Social History Social History Alcohol intake: former Patient Tobacco Use Status: Current everyday Tobacco user Cigarettes Per Day: 10 Substance Use Type: Marijuana Advance Directives: No Advance Directives Information Provided: No Do you have a plan to hurt others: No Plan Physical Exam 2 Vital Signs: Vital Signs: Last Vital Signs Temp 98.5 F 10/22/23 07:21 Pulse 87 10/22/23 07:21 Resp 16 10/22/23 07:21 BP 133/75 10/22/23 07:21 Pulse Ox 96 10/22/23 07:21 O2 Del Method Room Air 10/22/23 07:21 BMI result Body Mass Index 36.8 Appearance: Alert. Oriented X3. No acute distress. Eyes: Pupils equal, round and reactive to light. ENT: Pharynx normal. Neck: Normal inspection. Neck supple. CVS: Normal heart rate and rhythm. Pulses normal. Respiratory: No respiratory distress. Breath sounds normal. Abdomen: Soft and nontender. Skin: Skin warm and dry. Normal skin color. Normal skin turgor. Extremities: No lower extremity edema. No calf ttp Neuro: Oriented X 3. No motor deficit. No sensory deficit. Medications Administered Discontinued Medications Generic Name Dose Route Start Last Admin Trade Name Lucas PRN Reason Stop Dose Admin Ondansetron HCl 4 mg 10/22/23 08:31 10/22/23 08:50 Ondansetron Odt 4 Mg Tab.Rapdis TRANSLINGU 10/22/23 08:32 4 mg ONCE ONE Administration Medical Decision Making Medical Decision Making [facility] Narrative: 38 yo male with PMH of opiate use disorder, GERD, CAD here with c/o sniffing heroin on top of his methadone did dose methadone this AM. At this time will need basic labs, EKG - wants detox, zofran ordered. referral to addiction medicine in place. Differential Diagnosis Differential Diagnoses: The differential diagnosis associated with the presentation includes opiate use disorder, opiate withdrawal Admission/Observation Consideration of admission/observation: Escalation of care including admission/observation considered to go to [facility] as walk in per addiction medicine team - [place] [employer] Consult Healthcare Provider Management of the patient was discussed with: Behavioral Health Provider Lab Data [facility] Lab Attestation statement: I reviewed the patient's lab results. 10/22/23 07:42 10/22/23 07:42 Labs: Lab Results 10/22/23 Range/Units 07:42 WBC 8.3 (4.8-10.8) X10*3/uL RBC 4.86 (4.60-5.80) X10*6/uL Hgb 14.1 (14.0-18.0) g/dl Hct 41.8 L (42.0-52.0) % MCV 86.0 (80.0-98.0) fL MCH 29.0 (27.0-33.0) pg MCHC 33.7 (31.0-36.0) g/dl RDW 13.5 (11.0-16.0) % Plt Count 290 (160-400) X10*3/uL MPV 9.5 (9.4-12.4) fL Immature Gran % (Auto) 0.2 (0.0-0.4) % Neut % (Auto) 81.8 H (45-73) % Lymph % (Auto) 6.1 L (20-40) % [place] % (Auto) 9.6 (2-11) % Eos % (Auto) 1.3 (0-4) % Baso % (Auto) 1.0 (0-2) % Lymph # (Auto) 0.5 L (1.2-4.9) X10*3/uL [place] # (Auto) 0.8 (0.1-1.2) X10*3/uL Eos # (Auto) 0.1 (0.0-0.4) X10*3/uL Baso # (Auto) 0.1 (0.0-0.2) X10*3/uL Abs Immat Gran (auto) 0.02 (0.00-0.03) X10*3/uL Absolute Neuts (auto) 6.8 (2.0-8.3) x10*3/uL Absolute Nucleated RBC 0.000 (0.0-0.012) X10*3/uL Nucleated RBC % (auto) 0.0 (0.0-0.2) /100WBC Sodium 136 (135-145) mmol/L Potassium 3.8 (3.3-5.1) mmol/L Chloride 101 (96-108) mmol/L Carbon Dioxide 26 (22-29) mmol/L Anion Gap 13 (12-20) BUN 15 (9-16) mg/dL Creatinine 1.03 (0.5-1.4) mg/dL Estim Creat Clear Calc 126.7 Estimated GFR > 60 Random Glucose 105 (60-115) mg/dL Calcium 9.6 (8.4-10.2) mg/dL Total Bilirubin 0.4 (0.0-1.0) mg/dL AST 29 (5-37) U/L ALT 28 (0-40) U/L Alkaline Phosphatase 87 (39-117) U/L Troponin I High Sens < 2.7 (<3.5-35.0) ng/L Total Protein 8.0 (6.5-8.0) g/dL Albumin 4.1 (3.5-5.0) g/dL Salicylates < 5.0 L (15-30) mg/dL Acetaminophen < 3 (<30) mcg/mL Independent Interpretation I performed an independent interpretation of an: EKG Interpretation: Rate: 80 Rhythm: NSR [place]: normal Normal P waves. Normal GURDEEP. Normal QRS complex. ST T wave : normal no RADHA qTC: 445 prior studies: no acute ischemia The study has been interpreted contemporaneously by me. . Discharge Plan Discharge Clinical Impression: Opiate use Patient Disposition: Home, Self-Care Instructions: Opioid Use Disorder (ED) Additional Instructions: please present to [facility] for detox you are medically cleared at this time. return for any worsening symptoms or concerns. Prescriptions: No Action ondansetron 4 mg tablet,disintegrating 4 mg PO DAILY PRN (Reason: nausea and vomiting) 5 Days Qty: 10 0RF atorvastatin 20 mg tablet 20 mg PO DAILY clopidogrel 75 mg tablet 75 mg PO DAILY carvedilol 3.125 mg tablet 3.125 mg PO BID aspirin 81 mg tablet,delayed release (DR/EC) 81 mg PO DAILY nicotine (polacrilex) 4 mg gum 4 mg PO Q2H PRN methadone 10 mg/mL concentrate 95 mg PO DAILY famotidine [Pepcid AC] 20 mg tablet 20 mg PO DAILY polyethylene glycol 3350 [Miralax] 17 gram/dose powder 17 g PO DAILY Qty: 510 2RF pantoprazole 40 mg tablet,delayed release (DR/EC) 40 mg PO DAILY Qty: 30 2RF Rx Instructions: take one tablet half an hour before breakfast sennosides [Natural Senna Laxative] 8.6 mg tablet 17.2 mg PO BEDTIME Qty: 60 3RF omeprazole 20 mg capsule,delayed release(DR/EC) 20 mg PO DAILY Qty: 90 2RF Print Language: Solomon Islander
[2023-10-22] MEDS: Ondansetron ODT 4 MG TAB.RAPDIS TRANSLINGU (08:50)
--- NOTE | 2023-10-22 08:51 | PC.NURSE ---
pt verbalizes feeling nauseous - zofran administered per provider order. effectiveness pending.
--- NOTE | 2023-10-22 09:08 | PC.NURSE ---
swabs obtained/sent to lab. pt speaking w/ job coaching, RN, Corrine at this time. plan of care ongoing.
--- NOTE | 2023-10-22 09:11 | MHC.RECOVRN ---
Met with pt in ED12 after pt expressed interest in ATS. Pt reports using heroin/fentanyl, 5 bags daily x 5 months. Pt is interested in ATS, agreeable to present to [facility] as a walk in. Will be transported via [employer]. Provider and RN aware.
[2023-10-22 09:49] LABS: Influenza A PCR NEGATIVE (Negative); Influenza B PCR NEGATIVE (Negative); Resp Syncy Virus RNA Qual PCR NEGATIVE (Negative); SARS COV2 PCR INHOUSE NEGATIVE (Negative)
[2023-10-22 09:52] VITALS: BP 132/82; PULSE 97; RESP 16; TEMP 36.8; O2SAT 96
--- NOTE | 2023-10-22 09:54 | PC.NURSE ---
pt aware of plan of care moving forward. pt aware he will be a walk in at [facility] to receive detox. belongings retrieved from pod and given to patient. pt provided w/ d/c paperwork
[2023-10-22 09:55] VITALS: PULSE 99
[2023-10-22 10:16] VITALS: BP 132/82; PULSE 97; RESP 16; TEMP 36.8; O2SAT 96
== END 2023-10-22 10:17 | disposition home or self-care (01) ==
PROVIDERS: Emergency Provider Emergency Medicine; PCP Nurse Practitioner Primary Care
DX: F11.20 Opioid dependence, uncomplicated (principal)
CPT/HCPCS: 0241U; 36415; 80053; 80143; 80179; 84484; 85025; 93005; 99285

== ENCOUNTER → 2023-10-22 08:09 | Outpatient (BNV) | payer OTHER, SELFPAY | PROVIDERS: Emergency Provider Emergency Medicine; PCP Nurse Practitioner Primary Care; Visit Provider Internal Medicine | DX: R41.82 Altered mental status, unspecified (principal) | CPT/HCPCS: 93010 ==

== ENCOUNTER 2024-04-12 11:42 | Outpatient (REF) | payer OTHER, SELFPAY ==
[2024-04-12 13:45] LABS: Estimated Average Glucose 117 mg/dL; Hemoglobin A1C 125.6191 umol/L; Hemoglobin A1c % 5.7 % (<6.0); Total Hemoglobin (HGBA1C) 3275.3824 umol/L
[2024-04-12 13:51] LABS: Cholesterol 185 mg/dL (<200); HDL Cholesterol 30 mg/dL (>40); LDL Cholesterol Calculated 86 mg/dL (<100); Triglycerides 348 mg/dL (<150)
[2024-04-13 08:27] LABS: HIV AB/AG Nonreactive (Nonreactive); HIV Num 1 0.09 S/CO (0.00-0.99); ~HepC Num1 0.23 S/CO (0.00-0.79); ~Hepatitis C Antibody Nonreactive (Nonreactive)
[2024-04-14 17:23] LABS: RPR Rapid Plasma Reagin NON-REACTIVE (NON-REACTIVE)
== END 2024-04-12 11:43 | disposition home or self-care (01) ==
LOC: HO.HHCL 11:42
PROVIDERS: Visit Provider Nurse Practitioner Primary Care
DX: Z00.00 Encounter for general adult medical examination without abnormal findings (principal); Z11.3 Encounter for screening for infections with a predominantly sexual mode of transmission; E78.1 Pure hyperglyceridemia
CPT/HCPCS: 36415; 80061; 83036; 86592; 86803; 87389

== ENCOUNTER 2024-05-16 17:29 | Emergency (ER) | payer MEDICAID, SELFPAY ==
[2024-05-16 17:35] VITALS: BP 118/72; BP 119/80; PULSE 74; PULSE 75; RESP 16; TEMP 36.4; O2SAT 94; O2SAT 96; BMI 33.5
--- NOTE | 2024-05-16 17:50 | PC.NURSE ---
Pt presents to ED via EMS from home, reports since he woke up this morning he has had S/S of nausea/ vomiting, cold sweats, ABD pain. Reports he took his normal dose of methadone (105mg) and 2 bags of heroin (that he uses daily, took around 1500) and still did not feel better. Requesting med eval and detox/help. Denies SI or HI. Reports pain 8/10 to general body and ABD pain. Alert and oriented, breathing even and unlabored, skin drenched in sweat. Pt changed over into safety clothes.
--- NOTE | 2024-05-16 18:00 | ED_ITS ---
HPI - Psych General Chief Complaint: ETOH/Substance Use Stated Complaint: Nausea, methadone/heroin use, detox request Time Seen by Provider: 05/16/24 17:52 Source: patient Mode of arrival: EMS Limitations: no limitations History of Present Illness ED Provider: arlen [place] Narrative: Patient's history of substance abuse snorts heroin on methadone patient is complaining of nausea vomiting symptoms started 1500 feel very anxious asking for detox denies any SI or HI Related Data Home Medications ?Medication ?Instructions ?Recorded ?Confirmed aspirin 81 mg tablet,delayed 81 mg PO DAILY 07/28/23 release atorvastatin 20 mg tablet 20 mg PO DAILY 07/28/23 carvedilol 3.125 mg tablet 3.125 mg PO BID 07/28/23 clopidogrel 75 mg tablet 75 mg PO DAILY 07/28/23 famotidine 20 mg tablet (Pepcid AC) 20 mg PO DAILY 07/28/23 methadone 10 mg/mL oral concentrate 95 mg PO DAILY 07/28/23 nicotine (polacrilex) 4 mg gum 4 mg PO Q2H PRN 07/28/23 Previous Rx's ?Medication ?Instructions ?Recorded ondansetron 4 mg disintegrating 4 mg PO DAILY PRN nausea and 07/02/23 tablet vomiting 5 days #10 tabs pantoprazole 40 mg tablet,delayed 40 mg PO DAILY #30 tabs 07/28/23 release polyethylene glycol 3350 17 17 g PO DAILY #510 grams 07/28/23 gram/dose oral powder (Miralax) sennosides 8.6 mg tablet (Natural 17.2 mg (2 x 8.6 mg) PO BEDTIME 07/28/23 Senna Laxative) constipation #60 tabs omeprazole 20 mg capsule,delayed 20 mg PO DAILY #90 caps 02/04/24 release Allergies Allergy/AdvReac Type Severity Reaction Status Date / Time No Known Allergies Allergy Verified 05/16/24 17:44 Review of Systems 2 Review of Systems: Yes all other systems are reviewed and are negative PMFSH Past Medical History Medical History GERD (gastroesophageal reflux disease) Methadone maintenance therapy patient Smoking Polysubstance abuse Heart attack Surgical History H/O heart artery stent H/O cardiac catheterization Family History Family History Maternal Aunt Cancer Social History Social History Alcohol intake: former Patient Tobacco Use Status: Current everyday Tobacco user Cigarettes Per Day: 10 Smoked in Last 30 Days: Yes Use of substances other than those prescribed or required for medical reasons: Yes Substance Use Type: Heroin Substance Use Frequency: Daily Last Used Substance: Just Prior to Admission Advance Directives: No Advance Directives Information Provided: No Physical Exam 2 Vital Signs: Vital Signs: Last Vital Signs Temp 97.8 F 05/16/24 23:59 Pulse 67 05/16/24 23:59 Resp 17 05/16/24 23:59 BP 111/77 05/16/24 23:59 Pulse Ox 96 05/16/24 23:59 O2 Del Method Room Air 05/16/24 23:59 BMI result Body Mass Index 33.5 Appearance: Alert. Oriented X3. No acute distress. Anxious Eyes: PERRLA, No Nystagmus ENT: Pharynx normal. Oral Mucosa moist Neck: Normal inspection. Neck supple. CVS: Normal heart rate and rhythm. Pulses normal. Respiratory: No respiratory distress. Equal air entry bilateral, no wheezing/rales/rhonchi Abdomen: Soft and nontender. Bowel sounds are present, no mass palpable, no CVA tenderness Skin: Skin warm and dry. Normal skin color. Normal skin turgor. Extremities: No lower extremity edema. No calf tenderness Neuro: Oriented X 3. No motor deficit. No sensory deficit.No cerebellar signs , cranial nerves II-XII intact Medications Administered Discontinued Medications Generic Name Dose Route Start Last Admin Trade Name Lucas PRN Reason Stop Dose Admin Lorazepam 2 mg 05/16/24 18:07 05/16/24 18:17 Lorazepam 1 Mg Tablet PO 05/16/24 18:08 2 mg ONCE ONE Administration Ondansetron HCl 4 mg 05/16/24 18:07 05/16/24 18:16 Ondansetron Odt 4 Mg Tab.Rapdis TRANSLINGU 05/16/24 18:08 4 mg ONCE ONE Administration Medical Decision Making Medical Decision Making MDM Narrative: Patient with opiate use on methadone will give for detox placement will get care team involved patient's symptoms improved after lorazepam 2 mg Lab Data MDM Lab Attestation statement: I reviewed the patient's lab results. 05/16/24 18:39 05/16/24 18:39 Labs: Lab Results 05/16/24 05/16/24 Range/Units 18:39 21:16 WBC 6.9 (4.8-10.8) X10*3/uL RBC 5.11 (4.60-5.80) X10*6/uL Hgb 14.0 (14.0-18.0) g/dl Hct 42.7 (42.0-52.0) % MCV 83.6 (80.0-98.0) fL MCH 27.4 (27.0-33.0) pg MCHC 32.8 (31.0-36.0) g/dl RDW 14.6 (11.0-16.0) % Plt Count 296 (160-400) X10*3/uL MPV 9.4 (9.4-12.4) fL Immature Gran % (Auto) 0.3 (0.0-0.4) % Neut % (Auto) 65.0 (45-73) % Lymph % (Auto) 26.3 (20-40) % [place] % (Auto) 6.3 (2-11) % Eos % (Auto) 0.9 (0-4) % Baso % (Auto) 1.2 (0-2) % Lymph # (Auto) 1.8 (1.2-4.9) X10*3/uL [place] # (Auto) 0.4 (0.1-1.2) X10*3/uL Eos # (Auto) 0.1 (0.0-0.4) X10*3/uL Baso # (Auto) 0.1 (0.0-0.2) X10*3/uL Abs Immat Gran (auto) 0.02 (0.00-0.03) X10*3/uL Absolute Neuts (auto) 4.5 (2.0-8.3) x10*3/uL Absolute Nucleated RBC 0.000 (0.0-0.012) X10*3/uL Nucleated RBC % (auto) 0.0 (0.0-0.2) /100WBC Sodium 137 (135-145) mmol/L Potassium 3.5 (3.3-5.1) mmol/L Chloride 103 (96-108) mmol/L Carbon Dioxide 25 (22-29) mmol/L Anion Gap 13 (12-20) BUN 8 L (9-16) mg/dL Creatinine 0.96 (0.5-1.4) mg/dL Estim Creat Clear Calc 128.3 Estimated GFR > 60 Random Glucose 104 (60-115) mg/dL Calcium 9.9 (8.4-10.2) mg/dL Total Bilirubin 0.5 (0.0-1.0) mg/dL AST 25 (5-37) U/L ALT 23 (0-40) U/L Alkaline Phosphatase 109 (39-117) U/L Total Protein 8.0 (6.5-8.0) g/dL Albumin 4.1 (3.5-5.0) g/dL Urine Color Yellow Urine Appearance Clear Urine pH 7.0 (5.0-9.0) Ur Specific [place] 1.015 (1.005-1.025) Urine Protein Negative (Neg-Trace) mg/dL Urine Glucose (UA) Negative (Negative) mg/dL Urine Ketones Trace (Negative) mg/dL Urine Blood Trace H (Negative) Urine Nitrite Negative (Negative) Ur Leukocyte Esterase Negative (Negative) Urine RBC 6-10 H (0-2) /HPF Urine WBC 0-5 (0-5) /HPF Ur Squamous Epith Cells 0-2 (0-2) /HPF Urine Bacteria None Seen (None Seen) Hyaline Casts 0-2 (0-2) /LPF Salicylates < 5.0 L (15-30) mg/dL Urine Opiates Screen POSITIVE H (Not Detect) Ur Buprenorphine Scrn Not Detected (Not Detect) ng/mL Ur Oxycodone Screen Not Detected (Not Detect) ng/mL Urine Methadone Screen Positive H (Not Detect) ng/mL Urine Fentanyl Screen POSITIVE H (Not Detect) Ur Barbiturates Screen Not Detected (Not Detect) Ur Phencyclidine Scrn Not Detected (Not Detect) Ur Amphetamines Screen Not Detected (Not Detect) U Benzodiazepines Scrn Not Detected (Not Detect) Urine Cocaine Screen Not Detected (Not Detect) U Marijuana (THC) Screen POSITIVE H (Not Detect) Ethyl Alcohol < 10 mg/dL Influenza Type A (PCR) NEGATIVE (Negative) Influenza Type B (PCR) NEGATIVE (Negative) RSV RNA Qual (PCR) NEGATIVE (Negative) SARS-CoV-2 RNA (RT-PCR) NEGATIVE (Negative) Discharge Plan Discharge Clinical Impression: Opiate dependence Patient Disposition: Still a Patient Prescriptions: No Action omeprazole 20 mg capsule,delayed release(DR/EC) 20 mg PO DAILY Qty: 90 2RF ondansetron 4 mg tablet,disintegrating 4 mg PO DAILY PRN (Reason: nausea and vomiting) 5 Days Qty: 10 0RF atorvastatin 20 mg tablet 20 mg PO DAILY clopidogrel 75 mg tablet 75 mg PO DAILY carvedilol 3.125 mg tablet 3.125 mg PO BID aspirin 81 mg tablet,delayed release (DR/EC) 81 mg PO DAILY nicotine (polacrilex) 4 mg gum 4 mg PO Q2H PRN methadone 10 mg/mL concentrate 95 mg PO DAILY famotidine [Pepcid AC] 20 mg tablet 20 mg PO DAILY polyethylene glycol 3350 [Miralax] 17 gram/dose powder 17 g PO DAILY Qty: 510 2RF pantoprazole 40 mg tablet,delayed release (DR/EC) 40 mg PO DAILY Qty: 30 2RF Rx Instructions: take one tablet half an hour before breakfast sennosides [Natural Senna Laxative] 8.6 mg tablet 17.2 mg PO BEDTIME Qty: 60 3RF Print Language: Dutch
[2024-05-16] MEDS: Ondansetron ODT 4 MG TAB.RAPDIS TRANSLINGU (18:16)
[2024-05-16] MEDS: LORazepam 1 MG TABLET 2 MG PO (18:17)
[2024-05-16 18:44] LABS: MANUAL DIFF FLAG NO
[2024-05-16 18:47] LABS: Basophils Absolute Auto 0.1 X10*3/uL (0.0-0.2); Basophils Percent Auto 1.2 % (0-2); Eosinophils Absolute Auto 0.1 X10*3/uL (0.0-0.4); Eosinophils Percent Auto 0.9 % (0-4); Hematocrit 42.7 % (42.0-52.0); Imm Gran Abs Auto 0.02 X10*3/uL (0.00-0.03); Imm Gran Pct Auto 0.3 % (0.0-0.4); Lymphocytes Absolute Auto 1.8 X10*3/uL (1.2-4.9); Lymphocytes Percent Auto 26.3 % (20-40); Mean Corpuscular HGB Conc 32.8 g/dl (31.0-36.0); Mean Corpuscular Hemoglobin 27.4 pg (27.0-33.0); Mean Corpuscular Volume 83.6 fL (80.0-98.0); Mean Platelet Volume 9.4 fL (9.4-12.4); Monocytes Absolute Auto 0.4 X10*3/uL (0.1-1.2); Monocytes Percent Auto 6.3 % (2-11); Neutrophils Absolute Auto 4.5 x10*3/uL (2.0-8.3); Platelet Count 296 X10*3/uL (160-400); Red Blood Count 5.11 X10*6/uL (4.60-5.80); Red Cell Distribution Width 14.6 % (11.0-16.0); White Blood Count 6.9 X10*3/uL (4.8-10.8)
[2024-05-16 18:59] LABS: Ethanol < 10 mg/dL
[2024-05-16 19:01] LABS: Alanine Aminotransferase 23 U/L (0-40); Albumin Level 4.1 g/dL (3.5-5.0); Alkaline Phosphatase 109 U/L (39-117); Anion Gap 13 (12-20); Aspartate Amino Transferase 25 U/L (5-37); Bilirubin Total 0.5 mg/dL (0.0-1.0); Blood Urea Nitrogen 8 mg/dL (9-16); Calcium 9.9 mg/dL (8.4-10.2); Carbon Dioxide 25 mmol/L (22-29); Chloride 103 mmol/L (96-108); Creatinine Clr Calc Pharmacy 128.3; Estimated Glomerular Filt Rate > 60; Glucose Random 104 mg/dL (60-115); Potassium 3.5 mmol/L (3.3-5.1); Sodium 137 mmol/L (135-145)
[2024-05-16 19:02] LABS: Salicylate < 5.0 mg/dL (15-30)
[2024-05-16 19:22] LABS: Influenza A PCR NEGATIVE (Negative); Influenza B PCR NEGATIVE (Negative); Resp Syncy Virus RNA Qual PCR NEGATIVE (Negative); SARS COV2 PCR INHOUSE NEGATIVE (Negative)
--- NOTE | 2024-05-16 19:51 | PC.NURSE ---
Registration staff member at bedside reviewing patient's information at this time. Pt is calm/cooperative, was sleeping, but easily aroused to verbal stimuli at this time.
--- NOTE | 2024-05-16 20:36 | PC.NURSE ---
Patient reports Ativan has been effective to relieve all withdrawal symptoms. Pt is pleasant/calm/cooperative. CIWA 0 at this time. Vital signs updated. Dr. Boles notified. Diet order in place. Pt aware that urine specimen is needed once able.
[2024-05-16 20:48] VITALS: BP 157/93; PULSE 67; RESP 16; TEMP 36.5; O2SAT 96
--- NOTE | 2024-05-16 21:12 | PC.NURSE ---
Patient up, ambulating out of bed to bathroom. Providing urine specimen at this time. Patient ambulates with steady gait and is calm/cooperative. Urine specimen to be sent for analysis.
[2024-05-16 21:29] LABS: Appearance Urine Clear; Color Urine Yellow; Glucose Urine UA Negative (Negative); Leukocyte Esterase Urine Negative (Negative); Nitrite Urine Negative (Negative); Specific Gravity - Urine 1.015 (1.005-1.025); UMIC TRIGGER UACC YES; Urine Blood Trace (Negative); Urine Ketones Trace mg/dL (Negative); Urine Protein Negative (Neg-Trace)
[2024-05-16 21:34] LABS: Bacteria Urine None Seen (None Seen); Hyaline Casts Urine 0-2 /LPF (0-2); Squamous Epithelial Cell Urine 0-2 /HPF (0-2); WBC Urine 0-5 /HPF (0-5)
[2024-05-16 21:35] LABS: Amphetamine Screen Urine Not Detected (Not Detect); Barbiturates, Urine Not Detected (Not Detect); Benzodiazepines Screen Urine Not Detected (Not Detect); Buprenorphine Scr Not Detected (Not Detect); Cannabinoid Screen Urine POSITIVE (Not Detect); Cocaine Screen Urine Not Detected (Not Detect); Fentanyl, urine POSITIVE (Not Detect); Methadone Screen, Urine Positive (Not Detect); Opiate Screen Urine POSITIVE (Not Detect); Oxycodone Screen Urine Not Detected (Not Detect); Phencyclidine Screen Urine Not Detected (Not Detect)
[2024-05-16 23:59] VITALS: BP 111/77; PULSE 67; RESP 17; TEMP 36.6; O2SAT 96
--- NOTE | 2024-05-17 01:06 | PC.NURSE ---
Patient sleeping, no acute distress. Respirations even/unlabored. Care ongoing by this RN.
[2024-05-17 02:00] VITALS: RESP 16
--- NOTE | 2024-05-17 02:45 | PC.NURSE ---
Patient continues to sleep. No changes compared to this RN's previous assessment. Care ongoing by this RN.
[2024-05-17 04:00] VITALS: RESP 16
--- NOTE | 2024-05-17 07:26 | PC.NURSE ---
Assumed care of patient at 0645, patient appears to be sleeping, respirations even and unlabored, no apparent distress. Continue plan of care for CARE team carly
[2024-05-17 09:33] VITALS: BP 125/87; PULSE 78; RESP 16; TEMP 37.2; O2SAT 97
== END 2024-05-17 09:52 | disposition home or self-care (01) ==
PROVIDERS: Internal Medicine; Emergency Provider Emergency Medicine Emergency Medical Services; PCP Nurse Practitioner Primary Care
DX: F11.20 Opioid dependence, uncomplicated (principal); R11.2 Nausea with vomiting, unspecified; F41.9 Anxiety disorder, unspecified; Z79.899 Other long term (current) drug therapy; Z51.81 Encounter for therapeutic drug level monitoring; Z03.818 Encounter for observation for suspected exposure to other biological agents ruled out; Z71.51 Drug abuse counseling and surveillance of drug abuser; F17.210 Nicotine dependence, cigarettes, uncomplicated
CPT/HCPCS: 0241U; 36415; 80053; 80179; 80307; 81001; 85025; 99285; S9485

== ENCOUNTER 2024-06-10 20:28 | Emergency (ER) | payer MEDICAID, SELFPAY ==
[2024-06-10 20:37] VITALS: BP 117/83; BP 162/78; PULSE 52; PULSE 61; RESP 14; TEMP 36.9; O2SAT 96; BMI 40.5
--- NOTE | 2024-06-10 20:40 | ED.GENADULT ---
HPI - General Adult General Chief complaint: ETOH/Substance Use Stated complaint: withdrawal symptoms Time Seen by Provider: 06/10/24 20:35 Source: patient and EMS Mode of arrival: EMS Limitations: no limitations History of Present Illness ED Provider: Dr. Court Foreman HPI narrative: Patient comes in the emergency room requesting detox or help for opiate addiction. Patient states that he uses heroin and methadone, last used 2 hours prior to arrival. Patient denies SI or HI, denies any nausea vomiting diarrhea abdominal pain with chills. Related Data Home Medications ?Medication ?Instructions ?Recorded ?Confirmed aspirin 81 mg tablet,delayed 81 mg PO DAILY 07/28/23 05/17/24 release atorvastatin 20 mg tablet 20 mg PO DAILY 07/28/23 05/17/24 methadone 10 mg/mL oral concentrate 105 mg PO DAILY 07/28/23 06/11/24 nicotine (polacrilex) 4 mg gum 4 mg PO Q2H PRN Nicotine Cravings 07/28/23 05/17/24 mirtazapine 15 mg tablet 15 mg PO BEDTIME 05/17/24 05/17/24 Previous Rx's ?Medication ?Instructions ?Recorded omeprazole 20 mg capsule,delayed 20 mg PO DAILY #90 caps 02/04/24 release Allergies Allergy/AdvReac Type Severity Reaction Status Date / Time No Known Allergies Allergy Verified 06/10/24 20:44 Review of Systems Review of Systems: Constitutional : No Weight loss, No Fever, No Chills, No Night Sweats, No Fatigue, No Malaise ENT/Mouth : No Hearing loss, No Ear Pain, No Nasal Congestion, No Sinus Pain, No Hoarseness, No sore throat, No Rhinorrhea, No Swallowing Difficulty Eyes: No Eye Pain, No Swelling, No Redness, No Foreign Body, No Discharge, No Vision Changes Cardiovascular : No Chest Pain, No SOB, No Dyspnea on Exertion, No Orthopnea, No Edema, No Palpitations Respiratory : No Cough, No Sputum, No Wheezing, No Smoke Exposure, No Dyspnea Gastrointestinal : No Nausea, No Vomiting, No Diarrhea, No Constipation, No abdominal Pain, No Hematochezia, No Melena Genitourinary : no irregular bleeding, No Dysuria, No Urinary Frequency, No Hematuria, No Urinary Incontinence, No Urgency, No Flank Pain, No Urinary Flow Changes, No Hesitancy Musculoskeletal : No joint pain, No Myalgias, No Joint Swelling Skin : No Skin Lesions, No rash Neuro : No Weakness, No Numbness, No Paresthesias, No Loss of Consciousness, No Dizziness, No Headache Psych : Denies SI or HI, requesting information for detox for opiates Heme/Lymph: No Bruising, No Bleeding,No Lymphadenopathy Endocrine : No Polyuria, No Polydipsia, No Temperature Intolerance PMFSH Past Medical History Medical History GERD (gastroesophageal reflux disease) Methadone maintenance therapy patient Smoking Polysubstance abuse Heart attack Surgical History H/O heart artery stent H/O cardiac catheterization Family History Family History Maternal Aunt Cancer Social History Social History Alcohol intake: former Patient Tobacco Use Status: Current everyday Tobacco user Cigarettes Per Day: 10 Smoked in Last 30 Days: Yes Substance Use Type: Crack/Cocaine, Heroin and Marijuana Substance Use Frequency: Chronic Longstanding Last Used Substance: Just Prior to Admission Any prior treatment program specific to substance use: Yes Advance Directives: No Advance Directives Information Provided: No Do you have a plan to hurt others: No Plan Physical Exam ED Vital Signs: Vital Signs - 24 hr 06/10/24 20:37 06/10/24 20:48 06/10/24 23:52 Temperature 98.5 F 98.5 F 98.6 F Pulse Rate 52 52 57 Respiratory Rate 14 14 18 Blood Pressure 117/83 117/83 154/82 H Pulse Oximetry 96 96 97 Oxygen Delivery Method Room Air Room Air Room Air 06/11/24 06:00 06/11/24 10:11 Temperature 97.9 F 97.9 F Pulse Rate 74 56 Respiratory Rate 16 18 Blood Pressure 159/80 H 139/85 Pulse Oximetry 97 99 Oxygen Delivery Method Room Air Room Air BMI result Body Mass Index 40.5 Const Other: Appearance: Alert. Oriented X3. No acute distress. Well-appearing, not actively withdrawing Eyes: Pupils equal, round and reactive to light. ENT: Pharynx normal. Neck: Normal inspection. Neck supple. No lymph nodes noted. No crepitus CVS: Normal heart rate and rhythm. Pulses normal. Normal S1 and S2 Respiratory: No respiratory distress. Breath sounds normal. No Wheezing. No rales Abdomen: Soft and nontender. No rigidity. No distention. Skin: Skin warm and dry. Normal skin color. Normal skin turgor. Extremities: No lower extremity edema. No Lacerations. No Rash Neuro: Oriented X 3. No motor deficit. No sensory deficit. Moving all extremities. No slurred speech. CN 2 through 12 grossly intact Psych: calm, cooperative, normal affect Course Course Course Narrative: All of patient's labs pending Care team consult pending Physician observation started at 20:40 Patient is not SI or HI, section 12 not indicated at this time Reevaluation(s) Reevaluation #1: Patient is requesting his methadone dosage at this time. He has with him his take-home methadone bottles. He is prescribed 105 mg. He has the take-home bottles with him including today's dosage as well as the upcoming days. Nursing staff has also verified from the clinic his dosage. Order placed for appropriate dosage Time: 08:40 Reevaluation #2: Dr. Mikal Estrada's End physician observation on 06/11/2024 at 13:07 hours 39-year-old male who presents emergency department for evaluation of opiate use disorder. Patient was evaluated by our recovery team and has been accepted to the [facility] rehab facility. Observation care revealed the the patient does not meet medical necessity for hospitalization. Exam at time of disposition revealed the patient was awake, alert , oriented to person place, was not in any distress. ? Final disposition discussed with the patient by a recovery team and the patient verbalized understanding and agreement. Patient started observation time on 06/10/2024 at 20:42 hours Patient completed observation care on 06/11/2024 at 13:07 hours Total time spent in observation care was 26 hours and 25 minuets. Time: 13:07 Medications Administered Discontinued Medications Generic Name Dose Route Start Last Admin Trade Name Freq PRN Reason Stop Dose Admin Methadone HCl 105 mg 06/11/24 08:39 06/11/24 08:49 Methadone Hcl 20 Mg/2 Ml Oral.Conc PO 06/11/24 08:40 105 mg ONCE ONE Administration Medical Decision Making Lab Data 06/10/24 21:22 06/10/24 21:22 Labs: Lab Results 06/10/24 06/11/24 Range/Units 21:22 06:02 WBC 8.4 (4.8-10.8) X10*3/uL RBC 4.64 (4.60-5.80) X10*6/uL Hgb 12.8 L (14.0-18.0) g/dl Hct 38.7 L (42.0-52.0) % MCV 83.4 (80.0-98.0) fL MCH 27.6 (27.0-33.0) pg MCHC 33.1 (31.0-36.0) g/dl RDW 14.8 (11.0-16.0) % Plt Count 268 (160-400) X10*3/uL MPV 9.4 (9.4-12.4) fL Immature Gran % (Auto) 0.2 (0.0-0.4) % Neut % (Auto) 68.2 (45-73) % Lymph % (Auto) 22.2 (20-40) % [place] % (Auto) 6.4 (2-11) % Eos % (Auto) 2.0 (0-4) % Baso % (Auto) 1.0 (0-2) % Lymph # (Auto) 1.9 (1.2-4.9) X10*3/uL [place] # (Auto) 0.5 (0.1-1.2) X10*3/uL Eos # (Auto) 0.2 (0.0-0.4) X10*3/uL Baso # (Auto) 0.1 (0.0-0.2) X10*3/uL Abs Immat Gran (auto) 0.02 (0.00-0.03) X10*3/uL Absolute Neuts (auto) 5.7 (2.0-8.3) x10*3/uL Absolute Nucleated RBC 0.000 (0.0-0.012) X10*3/uL Nucleated RBC % (auto) 0.0 (0.0-0.2) /100WBC Sodium 141 (135-145) mmol/L Potassium 4.2 (3.3-5.1) mmol/L Chloride 107 (96-108) mmol/L Carbon Dioxide 30 H (22-29) mmol/L Anion Gap 8 L (12-20) BUN 11 (9-16) mg/dL Creatinine 0.89 (0.5-1.4) mg/dL Estim Creat Clear Calc 152.7 Estimated GFR > 60 Random Glucose 111 (60-115) mg/dL Calcium 8.9 D (8.4-10.2) mg/dL Total Bilirubin 0.3 (0.0-1.0) mg/dL Direct Bilirubin 0.1 (0.0-0.5) mg/dL AST 26 (5-37) U/L ALT 29 (0-40) U/L Alkaline Phosphatase 98 (39-117) U/L Total Protein 7.5 (6.5-8.0) g/dL Albumin 3.8 (3.5-5.0) g/dL Urine Opiates Screen POSITIVE H (Not Detect) Ur Buprenorphine Scrn Not Detected (Not Detect) ng/mL Ur Oxycodone Screen Not Detected (Not Detect) ng/mL Urine Methadone Screen Positive H (Not Detect) ng/mL Urine Fentanyl Screen POSITIVE H (Not Detect) Ur Barbiturates Screen Not Detected (Not Detect) Ur Phencyclidine Scrn Not Detected (Not Detect) Ur Amphetamines Screen Not Detected (Not Detect) U Benzodiazepines Scrn Not Detected (Not Detect) Urine Cocaine Screen Not Detected (Not Detect) U Marijuana (THC) Screen POSITIVE H (Not Detect) Ethyl Alcohol < 10 mg/dL Discharge Plan Discharge Clinical Impression: Heroin use Patient Disposition: Xfer Other Transfer Details: [facility] program Additional Instructions: Thanks you were evaluated by the recovery team and you have been accepted at [facility] Please follow the care team instructions Continue taking your medications as prescribed by your providers Your are being discharged home with intranasal Narcan. If you are going to continue to use heroin, you should make sure that there is a sober person with you that is not using drugs and that this person can administer intranasal Narcan in the event that you stop breathing. Follow-up with your doctor in 2 days. Please return to the emergency department if your symptoms get worse or if you develop any symptoms that are concerning to you. Prescriptions: No Action omeprazole 20 mg capsule,delayed release(DR/EC) 20 mg PO DAILY Qty: 90 2RF mirtazapine 15 mg tablet 15 mg PO BEDTIME atorvastatin 20 mg tablet 20 mg PO DAILY aspirin 81 mg tablet,delayed release (DR/EC) 81 mg PO DAILY nicotine (polacrilex) 4 mg gum 4 mg PO Q2H PRN (Reason: Nicotine Cravings) methadone 10 mg/mL concentrate 105 mg PO DAILY Print Language: Faroese
[2024-06-10 20:48] VITALS: BP 117/83; PULSE 52; RESP 14; TEMP 36.9; O2SAT 96
[2024-06-10 21:27] LABS: MANUAL DIFF FLAG NO
[2024-06-10 21:33] LABS: Basophils Absolute Auto 0.1 X10*3/uL (0.0-0.2); Eosinophils Absolute Auto 0.2 X10*3/uL (0.0-0.4); Hematocrit 38.7 % (42.0-52.0); Hemoglobin 12.8 g/dl (14.0-18.0); Imm Gran Abs Auto 0.02 X10*3/uL (0.00-0.03); Imm Gran Pct Auto 0.2 % (0.0-0.4); Lymphocytes Absolute Auto 1.9 X10*3/uL (1.2-4.9); Lymphocytes Percent Auto 22.2 % (20-40); Mean Corpuscular HGB Conc 33.1 g/dl (31.0-36.0); Mean Corpuscular Hemoglobin 27.6 pg (27.0-33.0); Mean Corpuscular Volume 83.4 fL (80.0-98.0); Mean Platelet Volume 9.4 fL (9.4-12.4); Monocytes Absolute Auto 0.5 X10*3/uL (0.1-1.2); Monocytes Percent Auto 6.4 % (2-11); Neutrophils Absolute Auto 5.7 x10*3/uL (2.0-8.3); Neutrophils Percent Auto 68.2 % (45-73); Platelet Count 268 X10*3/uL (160-400); Red Blood Count 4.64 X10*6/uL (4.60-5.80); Red Cell Distribution Width 14.8 % (11.0-16.0); White Blood Count 8.4 X10*3/uL (4.8-10.8)
[2024-06-10 21:46] LABS: Alanine Aminotransferase 29 U/L (0-40); Albumin Level 3.8 g/dL (3.5-5.0); Alkaline Phosphatase 98 U/L (39-117); Anion Gap 8 (12-20); Aspartate Amino Transferase 26 U/L (5-37); Bilirubin Direct 0.1 mg/dL (0.0-0.5); Bilirubin Total 0.3 mg/dL (0.0-1.0); Blood Urea Nitrogen 11 mg/dL (9-16); Calcium 8.9 mg/dL (8.4-10.2); Carbon Dioxide 30 mmol/L (22-29); Chloride 107 mmol/L (96-108); Creatinine Clr Calc Pharmacy 152.7; Estimated Glomerular Filt Rate > 60; Ethanol < 10 mg/dL; Glucose Random 111 mg/dL (60-115); Potassium 4.2 mmol/L (3.3-5.1); Sodium 141 mmol/L (135-145); Total Protein 7.5 g/dL (6.5-8.0)
--- NOTE | 2024-06-10 21:53 | MHC.CARE ---
Met with Pt for a CARE consult as he was requesting information about substance abuse treatment and detox. Pt reported he has been using 1 bundle of heroin a day since late Fall and was last at detox in October prior to being stepped down. Pt reported he is on MAT at [address] [place] [address]. Pt lives with mother in [place], she is supportive of him getting into detox. Pt reported his last use was about 2 hours prior to presenting to the ER and is having some withdrawal symptoms currently. Pt denied any suicidal or homicidal ideation and reported he was only looking for resources. Pt was provided with Patient Resource Booklet, detox and substance abuse resources were reviewed with Pt. Pt is agreeable to follow up with resources once discharged from the ER and will contact the CARE team with any questions.
[2024-06-10 23:52] VITALS: BP 154/82; PULSE 57; RESP 18; TEMP 37; O2SAT 97
[2024-06-11 06:00] VITALS: BP 159/80; PULSE 74; RESP 16; TEMP 36.6; O2SAT 97
[2024-06-11 06:22] LABS: Amphetamine Screen Urine Not Detected (Not Detect); Barbiturates, Urine Not Detected (Not Detect); Benzodiazepines Screen Urine Not Detected (Not Detect); Buprenorphine Scr Not Detected (Not Detect); Cannabinoid Screen Urine POSITIVE (Not Detect); Cocaine Screen Urine Not Detected (Not Detect); Fentanyl, urine POSITIVE (Not Detect); Methadone Screen, Urine Positive (Not Detect); Opiate Screen Urine POSITIVE (Not Detect); Oxycodone Screen Urine Not Detected (Not Detect); Phencyclidine Screen Urine Not Detected (Not Detect)
--- NOTE | 2024-06-11 08:14 | PC.NURSE ---
Met w/ pt in ED9 where he was found resting in bed. Pt agreeable to meet with this nurse to discuss ongoing opiate use disorder. Pt stated I can't keep using anymore. I need help. Pt reporting 1 bundle of fentanyl use daily since February. Longest period of sobriety being 3-4 months. Pt accepting to go to detox, asking for referral to [facility] and other facilities. Referrals to be sent for review.
[2024-06-11 08:40] VITALS: PULSE 74
[2024-06-11] MEDS: methADONE HCl 20 MG/2 ML ORAL.CONC 105 MG PO (08:49)
--- NOTE | 2024-06-11 08:51 | HE.PHANOTE ---
Addendum entered by Raina Alfaro RPh 06/11/24 08:55: Patient told nurse Trisha that he took his dose yesterday 06/10/24. Original Note: RE: METHADONE DOSING Last dose of methadone 105 mg was given on 06/07 (with take home doses until 06/14/24) per AUGUSTO Marte at [facility] [phone].
--- NOTE | 2024-06-11 09:01 | PC.NURSE ---
pt noted to have home medications including take home methadone bottles in his room. medication confiscated from patient. pt requesting methadone. provider notified/aware of take home bottles - methadone ordered by PA. Montague RN verified methadone dose w/ pharmacy. medication administered per provider order. pt extremely diaphoretic/tremulous. COWS = 12. CIWA = 14. pt currently a detox bed search at this time. plan of care ongoing. call curtis placed within reach.
[2024-06-11 10:11] VITALS: BP 139/85; PULSE 56; RESP 18; TEMP 36.6; O2SAT 99
[2024-06-11 13:22] VITALS: BP 139/85; PULSE 56; RESP 18; TEMP 36.6; O2SAT 99
--- NOTE | 2024-06-11 13:22 | PC.NURSE ---
pt provided w/ take home narcan as well as last dose letter. pt's personal medications returned. pt leaving ED via [employer] to go to [facility] at this time.
[2024-06-11] MEDS: Naloxone HCl Nasal TAKE HOME 4 MG SPRAY 8 MG NOSTRILALT (13:30)
== END 2024-06-11 13:30 | disposition other institution (70) ==
PROVIDERS: Emergency Medicine; Emergency Provider Emergency Medicine Emergency Medical Services; PCP Nurse Practitioner Primary Care
DX: F19.10 Other psychoactive substance abuse, uncomplicated (principal); F11.20 Opioid dependence, uncomplicated; F17.210 Nicotine dependence, cigarettes, uncomplicated; Z79.82 Long term (current) use of aspirin; Z79.02 Long term (current) use of antithrombotics/antiplatelets; Z79.899 Other long term (current) drug therapy
CPT/HCPCS: 36415; 80048; 80076; 80307; 85025; 99285; S9485

== ENCOUNTER 2024-07-08 18:40 | Emergency (ER) | payer MEDICAID, SELFPAY ==
--- NOTE | ~2024-07-08 | XR_ITS ---
CLINICAL HISTORY: chest pain 1 view chest x-ray Comparison: CR/SR - XR CHEST 1V - 09/05/23 01:08 EDT Findings: No consolidation or effusion. Heart size is normal. No acute fracture. IMPRESSION: 1. No acute findings. This document has been electronically signed by: Olivia Moore MD on 07/08/2024 19:49:26
--- NOTE | 2024-07-08 18:49 | ECG_ITS ---
Test Reason : CP Blood Pressure : */* mmHG Vent. Rate : 68 BPM Atrial Rate : 68 BPM P-R Int : 162 ms QRS Dur : 84 ms QT Int : 400 ms P-R-T Axes : 30 39 22 degrees QTcB Int : 425 ms Normal sinus rhythm Normal ECG When compared with ECG of 22-Oct-2023 08:09, No significant change was found Referred By: Generic ED Physician Electronically Signed By: Lonnie Ashton
--- NOTE | 2024-07-08 19:02 | ED.CHESTPAIN ---
HPI - Chest Pain General Chief Complaint: Chest Pain Stated Complaint: CP Time Seen by Provider: 07/08/24 18:50 Source: patient Mode of arrival: EMS Limitations: no limitations History of Present Illness HPI narrative: This is a 39 years old the patient with history of opioid abuse, hypertension hypercholesterolemia smoker presented to emergency department via ambulance with a chief complaint of chest pain. He states that he was watching TV experience chest discomfort without radiation of the pain, symptom lasted for about 2 minutes Derek is now gone. complaint: chest pain Onset (ago): hour(s) (1) Timing of current episode: now resolved Onset: during rest Pain location: substernal and left chest Pain radiation: none Severity: mild Quality: aching Relieving factors: nothing Exacerbating factors: nothing Context: recent illness Associated symptoms: nausea Risk Factors Coronary artery disease risk factors: smoking history, hyperlipidemia and hypertension Thoracic aortic dissection risk factors: none Related Data Home Medications ?Medication ?Instructions ?Recorded ?Confirmed aspirin 81 mg tablet,delayed 81 mg PO DAILY 07/28/23 05/17/24 release atorvastatin 20 mg tablet 20 mg PO DAILY 07/28/23 05/17/24 methadone 10 mg/mL oral concentrate 105 mg PO DAILY 07/28/23 06/11/24 nicotine (polacrilex) 4 mg gum 4 mg PO Q2H PRN Nicotine Cravings 07/28/23 05/17/24 mirtazapine 15 mg tablet 15 mg PO BEDTIME 05/17/24 05/17/24 Previous Rx's ?Medication ?Instructions ?Recorded omeprazole 20 mg capsule,delayed 20 mg PO DAILY #90 caps 02/04/24 release Allergies Allergy/AdvReac Type Severity Reaction Status Date / Time No Known Allergies Allergy Verified 07/08/24 19:07 Review of Systems Constitutional: Constitutional: Reports no additional constitutional complaints ENT: Reports system reviewed and no additional complaints, except as documented Respiratory: Respiratory: Reports no additional respiratory complaints Gastrointestinal: Gastrointestinal: Reports no additional gastrointestinal complaints [facility] Past Medical History [facility] Narrative: Hypertension hypercholesterolemia smoker substance abuse Medical History GERD (gastroesophageal reflux disease) Methadone maintenance therapy patient Smoking Polysubstance abuse Heart attack Surgical History H/O heart artery stent H/O cardiac catheterization Family History Family History Maternal Aunt Cancer Social History Social History Alcohol intake: never Patient Tobacco Use Status: Current everyday Tobacco user Cigarettes Per Day: 10 Smoked in Last 30 Days: Yes Use of substances other than those prescribed or required for medical reasons: Yes Substance Use Type: Marijuana Advance Directives: No Advance Directives Information Provided: No Do you have a plan to hurt others: No Plan Physical Exam Vital Signs: Vital Signs: Last Vital Signs Temp 98.4 F 07/08/24 20:06 Pulse 72 07/08/24 20:06 Resp 12 07/08/24 20:06 BP 109/62 07/08/24 20:06 Pulse Ox 94 07/08/24 20:06 O2 Del Method Room Air 07/08/24 20:06 BMI result Body Mass Index 40.0 He looks well is not toxic comfortable in the stretcher Const: General: cooperative Nutritional Appearance: average body habitus Orientation/consciousness: patient oriented x3 HEENT: Head: Yes normal to inspection General nose exam: Normal external nose present Face and sinus: Yes normal facial exam Neck: Neck: Yes normal visual inspection and Yes full ROM Chest: Chest palpation & inspection: normal inspection of the chest Resp: Effort & Inspection: normal respiratory effort Auscultation: clear to auscultation bilaterally Cardio: Jugular venous distension: no JVD Rate: regular rate Rhythm: regular rhythm GI: Inspection: Yes normal to inspection Palpation (GI): Soft to palpation, not firm and nontender Percussion: Yes normal to percussion Skin: General skin exam: no rashes or lesions noted, elasticity normal and turgor normal Lesions: no lesions Rashes: no rashes Wounds: no wounds Neuro: General: patient oriented x3 Cranial nerves: Yes CN's II-XII intact bilaterally Course Reevaluation(s) Reevaluation #1: Remained pain-free I did a bedside ultrasound of the heart good wall motion no pericardial effusion Time: 20:12 Reevaluation #2: Patient continued to be asymptomatic the plan is to repeat troponin at 21:10, I am off shift now the patient will be signed out to Dr. Foreman Time: 20:40 Medical Decision Making Medical Decision Making MDM Narrative: Patient presented with chest pain we will go ahead and check EKG high sensitive troponin Differential Diagnosis Differential Diagnoses: The differential diagnosis associated with the presentation includes ACS/musculoskeletal pain/pericarditis Admission/Observation Consideration of admission/observation: Escalation of care including admission/observation considered Lab Data 07/08/24 19:05 07/08/24 19:05 Labs: Lab Results 07/08/24 Range/Units 19:05 WBC 6.8 (4.8-10.8) X10*3/uL RBC 4.45 L (4.60-5.80) X10*6/uL Hgb 12.5 L (14.0-18.0) g/dl Hct 38.2 L (42.0-52.0) % MCV 85.8 (80.0-98.0) fL MCH 28.1 (27.0-33.0) pg MCHC 32.7 (31.0-36.0) g/dl RDW 14.6 (11.0-16.0) % Plt Count 314 (160-400) X10*3/uL MPV 8.9 L (9.4-12.4) fL Immature Gran % (Auto) 0.3 (0.0-0.4) % Neut % (Auto) 44.5 L (45-73) % Lymph % (Auto) 41.2 H (20-40) % [place] % (Auto) 8.6 (2-11) % Eos % (Auto) 4.4 H (0-4) % Baso % (Auto) 1.0 (0-2) % Lymph # (Auto) 2.8 (1.2-4.9) X10*3/uL [place] # (Auto) 0.6 (0.1-1.2) X10*3/uL Eos # (Auto) 0.3 (0.0-0.4) X10*3/uL Baso # (Auto) 0.1 (0.0-0.2) X10*3/uL Abs Immat Gran (auto) 0.02 (0.00-0.03) X10*3/uL Absolute Neuts (auto) 3.0 (2.0-8.3) x10*3/uL Absolute Nucleated RBC 0.000 (0.0-0.012) X10*3/uL Nucleated RBC % (auto) 0.0 (0.0-0.2) /100WBC Sodium 140 (135-145) mmol/L Potassium 4.1 (3.3-5.1) mmol/L Chloride 105 (96-108) mmol/L Carbon Dioxide 29 (22-29) mmol/L Anion Gap 10 L (12-20) BUN 10 (9-16) mg/dL Creatinine 0.99 (0.5-1.4) mg/dL Estim Creat Clear Calc 136.3 Estimated GFR > 60 Random Glucose 94 (60-115) mg/dL Calcium 8.9 (8.4-10.2) mg/dL Total Bilirubin 0.3 (0.0-1.0) mg/dL AST 26 (5-37) U/L ALT 27 (0-40) U/L Alkaline Phosphatase 100 (39-117) U/L Troponin I High Sens 7.3 D (<3.5-35.0) ng/L Total Protein 7.8 (6.5-8.0) g/dL Albumin 3.8 (3.5-5.0) g/dL Independent Interpretation I performed an independent interpretation of an: EKG Interpretation: Electrocardiogram was reviewed interpreted by me as normal sinus rhythm rate about [address]-T segments are isoelectric Discharge Plan Discharge Clinical Impression: Chest pain Patient Disposition: Still a Patient Prescriptions: No Action omeprazole 20 mg capsule,delayed release(DR/EC) 20 mg PO DAILY Qty: 90 2RF mirtazapine 15 mg tablet 15 mg PO BEDTIME atorvastatin 20 mg tablet 20 mg PO DAILY aspirin 81 mg tablet,delayed release (DR/EC) 81 mg PO DAILY nicotine (polacrilex) 4 mg gum 4 mg PO Q2H PRN (Reason: Nicotine Cravings) methadone 10 mg/mL concentrate 105 mg PO DAILY Print Language: Malian
[2024-07-08 19:05] VITALS: BP 131/79; PULSE 80; PULSE 82; RESP 18; TEMP 36.8; O2SAT 96; BMI 40.0
[2024-07-08 19:10] LABS: MANUAL DIFF FLAG NO
[2024-07-08 19:11] LABS: Basophils Absolute Auto 0.1 X10*3/uL (0.0-0.2); Eosinophils Absolute Auto 0.3 X10*3/uL (0.0-0.4); Eosinophils Percent Auto 4.4 % (0-4); Hematocrit 38.2 % (42.0-52.0); Hemoglobin 12.5 g/dl (14.0-18.0); Imm Gran Abs Auto 0.02 X10*3/uL (0.00-0.03); Imm Gran Pct Auto 0.3 % (0.0-0.4); Lymphocytes Absolute Auto 2.8 X10*3/uL (1.2-4.9); Lymphocytes Percent Auto 41.2 % (20-40); Mean Corpuscular HGB Conc 32.7 g/dl (31.0-36.0); Mean Corpuscular Hemoglobin 28.1 pg (27.0-33.0); Mean Corpuscular Volume 85.8 fL (80.0-98.0); Mean Platelet Volume 8.9 fL (9.4-12.4); Monocytes Absolute Auto 0.6 X10*3/uL (0.1-1.2); Monocytes Percent Auto 8.6 % (2-11); Neutrophils Percent Auto 44.5 % (45-73); Platelet Count 314 X10*3/uL (160-400); Red Blood Count 4.45 X10*6/uL (4.60-5.80); Red Cell Distribution Width 14.6 % (11.0-16.0); White Blood Count 6.8 X10*3/uL (4.8-10.8)
[2024-07-08 19:39] LABS: Anion Gap 10 (12-20); Carbon Dioxide 29 mmol/L (22-29); Chloride 105 mmol/L (96-108); Potassium 4.1 mmol/L (3.3-5.1); Sodium 140 mmol/L (135-145)
[2024-07-08 19:41] LABS: Troponin-I High Sensitivity 7.3 ng/L (<3.5-35.0)
[2024-07-08 19:43] LABS: Alanine Aminotransferase 27 U/L (0-40); Albumin Level 3.8 g/dL (3.5-5.0); Alkaline Phosphatase 100 U/L (39-117); Aspartate Amino Transferase 26 U/L (5-37); Bilirubin Total 0.3 mg/dL (0.0-1.0); Blood Urea Nitrogen 10 mg/dL (9-16); Calcium 8.9 mg/dL (8.4-10.2); Creatinine Clr Calc Pharmacy 136.3; Estimated Glomerular Filt Rate > 60; Glucose Random 94 mg/dL (60-115); Total Protein 7.8 g/dL (6.5-8.0)
[2024-07-08 20:06] VITALS: BP 109/62; PULSE 72; RESP 12; TEMP 36.9; O2SAT 94
--- NOTE | 2024-07-08 20:10 | MHC.EDTECH ---
pt ambulated to bathroom with a steady gait and no complaints were made at this time, RN aware
[2024-07-08 22:04] LABS: Troponin-I High Sensitivity 7.7 ng/L (<3.5-35.0)
[2024-07-08 22:10] VITALS: BP 109/61; PULSE 62; RESP 12; TEMP 36.7; O2SAT 95
[2024-07-08 23:54] VITALS: BP 109/61; PULSE 62; RESP 12; TEMP 36.7; O2SAT 95
== END 2024-07-09 00:03 | disposition home or self-care (01) ==
PROVIDERS: Emergency Provider Emergency Medicine; PCP Nurse Practitioner Primary Care
DX: R07.89 Other chest pain (principal); F17.210 Nicotine dependence, cigarettes, uncomplicated; Z79.899 Other long term (current) drug therapy
CPT/HCPCS: 36415; 71045; 80053; 84484; 85025; 93005; 99283; 99285

== ENCOUNTER → 2024-07-08 18:49 | Outpatient (BNV) | payer MEDICAID, SELFPAY | PROVIDERS: Emergency Provider Emergency Medicine; PCP Nurse Practitioner Primary Care; Visit Provider Internal Medicine Cardiovascular Disease | DX: R07.9 Chest pain, unspecified (principal) | CPT/HCPCS: 93010 ==

== ENCOUNTER 2024-07-09 04:08 | Emergency (ER) | payer MEDICAID, SELFPAY ==
[2024-07-09] VITALS (10 sets, daily range): BP systolic 104–155; BP diastolic 61–94; PULSE 64–82; RESP 12–19; TEMP 36.6–36.8; O2SAT 93–98; BMI 37.4; BMI 37.6
--- NOTE | 2024-07-09 | ECG_ITS ---
Test Reason : TROP INCREASE Blood Pressure : */* mmHG Vent. Rate : 78 BPM Atrial Rate : 78 BPM P-R Int : 178 ms QRS Dur : 86 ms QT Int : 388 ms P-R-T Axes : 45 53 47 degrees QTcB Int : 442 ms Normal sinus rhythm Normal ECG When compared with ECG of 09-Jul-2024 04:21, No significant change was found Referred By: Court Foreman Electronically Signed By: Lonnie Ashton
--- NOTE | 2024-07-09 04:18 | ECG_ITS ---
Test Reason : CHEST PAIN Blood Pressure : */* mmHG Vent. Rate : 57 BPM Atrial Rate : 57 BPM P-R Int : 156 ms QRS Dur : 86 ms QT Int : 424 ms P-R-T Axes : 34 50 29 degrees QTcB Int : 412 ms Sinus bradycardia with sinus arrhythmia Otherwise normal ECG When compared with ECG of 08-Jul-2024 18:55, No significant change was found Referred By: Court Foreman Electronically Signed By: Lonnie Ashton
--- NOTE | 2024-07-09 04:22 | ED_ITS ---
HPI - Chest Pain General Chief Complaint: Chest Pain Stated Complaint: CHEST PAIN, VOMITTING, 2BAGS OF HEROIN Time Seen by Provider: 07/09/24 04:16 Source: patient and EMS Mode of arrival: EMS Limitations: no limitations History of Present Illness ED Provider: Dr. Court Foreman HPI narrative: Patient comes to the emergency room a 2nd time today complaining of chest pain. Earlier today patient overdose, complaining of chest pain. Troponin x2 were drawn, both negative. Patient stated that he was asymptomatic, feeling well, then patient was discharged home. According to the patient, once he got home he started using heroin again and a few hours later developed chest pain and return to the emergency room. Complaining of nausea and vomiting. Related Data Home Medications ?Medication ?Instructions ?Recorded ?Confirmed aspirin 81 mg tablet,delayed 81 mg PO DAILY 07/28/23 05/17/24 release atorvastatin 20 mg tablet 20 mg PO DAILY 07/28/23 05/17/24 methadone 10 mg/mL oral concentrate 105 mg PO DAILY 07/28/23 06/11/24 nicotine (polacrilex) 4 mg gum 4 mg PO Q2H PRN Nicotine Cravings 07/28/23 05/17/24 mirtazapine 15 mg tablet 15 mg PO BEDTIME 05/17/24 05/17/24 Previous Rx's ?Medication ?Instructions ?Recorded omeprazole 20 mg capsule,delayed 20 mg PO DAILY #90 caps 02/04/24 release Allergies Allergy/AdvReac Type Severity Reaction Status Date / Time No Known Allergies Allergy Verified 07/09/24 04:56 Review of Systems 2 Review of Systems: Constitutional : No Weight loss, No Fever, No Chills, No Night Sweats, No Fatigue, No Malaise ENT/Mouth : No Hearing loss, No Ear Pain, No Nasal Congestion, No Sinus Pain, No Hoarseness, No sore throat, No Rhinorrhea, No Swallowing Difficulty Eyes: No Eye Pain, No Swelling, No Redness, No Foreign Body, No Discharge, No Vision Changes Cardiovascular : Complaining of chest pain, No SOB, No Dyspnea on Exertion, No Orthopnea, No Edema, No Palpitations Respiratory : No Cough, No Sputum, No Wheezing, No Smoke Exposure, No Dyspnea Gastrointestinal : Complaining of nausea and vomiting, No Diarrhea, No Constipation, No abdominal Pain, No Hematochezia, No Melena Genitourinary : no irregular bleeding, No Dysuria, No Urinary Frequency, No Hematuria, No Urinary Incontinence, No Urgency, No Flank Pain, No Urinary Flow Changes, No Hesitancy Musculoskeletal : No joint pain, No Myalgias, No Joint Swelling Skin : No Skin Lesions, No rash Neuro : No Weakness, No Numbness, No Paresthesias, No Loss of Consciousness, No Dizziness, No Headache Psych : No Anxiety/Panic, No Depression, No SI/HI/AH/VH, admits to using heroin Heme/Lymph: No Bruising, No Bleeding,No Lymphadenopathy Endocrine : No Polyuria, No Polydipsia, No Temperature Intolerance [facility] Past Medical History Medical History GERD (gastroesophageal reflux disease) Methadone maintenance therapy patient Smoking Polysubstance abuse Heart attack Surgical History H/O heart artery stent H/O cardiac catheterization Family History Family History Maternal Aunt Cancer Social History Social History Alcohol intake: never Patient Tobacco Use Status: Current everyday Tobacco user Cigarettes Per Day: 10 Smoked in Last 30 Days: Yes Use of substances other than those prescribed or required for medical reasons: Yes Substance Use Type: Heroin and Marijuana Substance Use Frequency: Chronic Longstanding Last Used Substance: Just Prior to Admission Any prior treatment program specific to substance use: Yes Advance Directives: No Advance Directives Information Provided: No Do you have a plan to hurt others: No Plan Physical Exam 2 Vital Signs: Vital Signs: Last Vital Signs Temp 98.2 F 07/09/24 04:22 Pulse 74 07/09/24 06:00 Resp 18 07/09/24 06:00 BP 108/66 07/09/24 06:00 Pulse Ox 97 07/09/24 06:00 O2 Del Method Nasal Cannula 07/09/24 06:00 O2 Flow Rate 2 07/09/24 06:00 BMI result Body Mass Index 37.4 Const: Other: Appearance: Alert. Oriented X3. No acute distress. Eyes: Pupils equal, round and reactive to light. ENT: Pharynx normal. Neck: Normal inspection. Neck supple. No lymph nodes noted. No crepitus CVS: Normal heart rate and rhythm. Pulses normal. Normal S1 and S2 Respiratory: No respiratory distress. Breath sounds normal. No Wheezing. No rales Abdomen: Soft and nontender. No rigidity. No distention. Skin: Skin warm and dry. Normal skin color. Normal skin turgor. Extremities: No lower extremity edema. No Lacerations. No Rash Neuro: Oriented X 3. No motor deficit. No sensory deficit. Moving all extremities. No slurred speech. CN 2 through 12 grossly intact Psych: calm, cooperative, normal affect Course Course Course Narrative: We will repeat patient's labs and EKG. Patient complaining of feeling that he is withdrawing of narcotics. Despite using heroin. Methadone dose being confirmed Medications Administered Discontinued Medications Generic Name Dose Route Start Last Admin Trade Name Lucas PRN Reason Stop Dose Admin Aspirin 325 mg 07/09/24 04:18 07/09/24 05:06 Aspirin 325 Mg Tablet PO 07/09/24 04:19 325 mg ONCE ONE Administration Ondansetron HCl 4 mg 07/09/24 04:22 07/09/24 05:00 Ondansetron Odt 4 Mg Tab.Rapdis TRANSLINGU 07/09/24 04:23 Not Given ONCE ONE Ondansetron HCl 4 mg 07/09/24 04:58 07/09/24 05:06 Ondansetron Hcl 4 Mg/2 Ml Vial IVPUSH 07/09/24 04:59 4 mg ONCE ONE Administration Medical Decision Making Medical Decision Making [facility] Narrative: Patient received p.o. aspirin. My interpretation of EKG: Normal sinus rhythm, heart rate 57, occasional PVCs, no ST segment depression or elevation, no T-wave inversion, QTC 412 My interpretation of labs: Patient's hematology and chemistry at baseline, troponin negative Discussed with the patient that using drugs his likely causing his symptoms. Patient has had 2 negative workups in 1 day. Patient instructed to follow-up with his primary care physician. Patient may need a stress test, last done was in 2020 Second troponin was repeated, now rising. Second troponin is 111.8 Second EKG: Normal sinus rhythm, heart rate 78, no ST segment depression or elevation, no T-wave inversions, QTC 442 I discussed the patient with Dr. Ashton from Cardiology, at this time, considered a mild troponin elevation. No EKG changes Heparin is not to be started per cardiology's recommendation. Until now, admission not necessary We will recheck troponin at 08:30. If the patient has a significant troponin elevation, we will reconsider patient's disposition Sign out given to my colleague ALISHA Dial Differential Diagnosis Differential Diagnoses: The differential diagnosis associated with the presentation includes (ACS, coronary vasospasm) Admission/Observation Consideration of admission/observation: Escalation of care including admission/observation considered (Given patient's recurrent symptoms, observation was considered.) Lab Data MDM Lab Attestation statement: I reviewed the patient's lab results. 07/09/24 04:28 07/09/24 04:28 Labs: Lab Results 07/09/24 07/09/24 Range/Units 04:28 06:32 WBC 6.9 (4.8-10.8) X10*3/uL RBC 4.60 (4.60-5.80) X10*6/uL Hgb 12.9 L (14.0-18.0) g/dl Hct 38.5 L (42.0-52.0) % MCV 83.7 (80.0-98.0) fL MCH 28.0 (27.0-33.0) pg MCHC 33.5 (31.0-36.0) g/dl RDW 14.6 (11.0-16.0) % Plt Count 320 (160-400) X10*3/uL MPV 9.0 L (9.4-12.4) fL Immature Gran % (Auto) 0.1 (0.0-0.4) % Neut % (Auto) 31.9 L (45-73) % Lymph % (Auto) 49.7 H (20-40) % [place] % (Auto) 12.2 H (2-11) % Eos % (Auto) 4.8 H (0-4) % Baso % (Auto) 1.3 (0-2) % Lymph # (Auto) 3.4 (1.2-4.9) X10*3/uL [place] # (Auto) 0.8 (0.1-1.2) X10*3/uL Eos # (Auto) 0.3 (0.0-0.4) X10*3/uL Baso # (Auto) 0.1 (0.0-0.2) X10*3/uL Abs Immat Gran (auto) 0.01 (0.00-0.03) X10*3/uL Absolute Neuts (auto) 2.2 (2.0-8.3) x10*3/uL Absolute Nucleated RBC 0.000 (0.0-0.012) X10*3/uL Nucleated RBC % (auto) 0.0 (0.0-0.2) /100WBC Sodium 139 (135-145) mmol/L Potassium 3.5 (3.3-5.1) mmol/L Chloride 106 (96-108) mmol/L Carbon Dioxide 25 (22-29) mmol/L Anion Gap 12 (12-20) BUN 11 (9-16) mg/dL Creatinine 0.87 (0.5-1.4) mg/dL Estim Creat Clear Calc TNP Estimated GFR > 60 Random Glucose 115 (60-115) mg/dL Calcium 9.1 (8.4-10.2) mg/dL Total Bilirubin 0.3 (0.0-1.0) mg/dL Direct Bilirubin 0.1 (0.0-0.5) mg/dL AST 25 (5-37) U/L ALT 24 (0-40) U/L Alkaline Phosphatase 102 (39-117) U/L Troponin I High Sens 5.5 111.8 H* D (<3.5-35.0) ng/L B-Natriuretic Peptide 32 (<100) pg/mL Total Protein 8.0 (6.5-8.0) g/dL Albumin 3.8 (3.5-5.0) g/dL Ethyl Alcohol 11 mg/dL Critical Care Time Critical Care Time Critical Care Time: Yes Total Critical Care Time: 60 Attestation: I have personally provided critical care time. Time includes review of lab data, radiology results, discussion with consultants, and monitoring for potential decompensation. Intervention performed as documented. Discharge Plan Discharge Clinical Impression: Polysubstance abuse, Chest pain, Elevated troponin Patient Disposition: Still a Patient Instructions: Chest Pain (ED) Additional Instructions: Please follow-up with your primary care physician tomorrow. If you have any worsening or new symptoms, please return to the emergency room or call 911 Prescriptions: No Action omeprazole 20 mg capsule,delayed release(DR/EC) 20 mg PO DAILY Qty: 90 2RF mirtazapine 15 mg tablet 15 mg PO BEDTIME atorvastatin 20 mg tablet 20 mg PO DAILY aspirin 81 mg tablet,delayed release (DR/EC) 81 mg PO DAILY nicotine (polacrilex) 4 mg gum 4 mg PO Q2H PRN (Reason: Nicotine Cravings) methadone 10 mg/mL concentrate 105 mg PO DAILY Print Language: Kinyarwanda
[2024-07-09 04:33] LABS: MANUAL DIFF FLAG NO
[2024-07-09 04:35] LABS: Basophils Absolute Auto 0.1 X10*3/uL (0.0-0.2); Basophils Percent Auto 1.3 % (0-2); Eosinophils Absolute Auto 0.3 X10*3/uL (0.0-0.4); Eosinophils Percent Auto 4.8 % (0-4); Hematocrit 38.5 % (42.0-52.0); Hemoglobin 12.9 g/dl (14.0-18.0); Imm Gran Abs Auto 0.01 X10*3/uL (0.00-0.03); Imm Gran Pct Auto 0.1 % (0.0-0.4); Lymphocytes Absolute Auto 3.4 X10*3/uL (1.2-4.9); Lymphocytes Percent Auto 49.7 % (20-40); Mean Corpuscular HGB Conc 33.5 g/dl (31.0-36.0); Mean Corpuscular Volume 83.7 fL (80.0-98.0); Monocytes Absolute Auto 0.8 X10*3/uL (0.1-1.2); Monocytes Percent Auto 12.2 % (2-11); Neutrophils Absolute Auto 2.2 x10*3/uL (2.0-8.3); Neutrophils Percent Auto 31.9 % (45-73); Platelet Count 320 X10*3/uL (160-400); Red Cell Distribution Width 14.6 % (11.0-16.0); White Blood Count 6.9 X10*3/uL (4.8-10.8)
[2024-07-09 04:49] LABS: Alanine Aminotransferase 24 U/L (0-40); Albumin Level 3.8 g/dL (3.5-5.0); Alkaline Phosphatase 102 U/L (39-117); Anion Gap 12 (12-20); Aspartate Amino Transferase 25 U/L (5-37); Bilirubin Direct 0.1 mg/dL (0.0-0.5); Bilirubin Total 0.3 mg/dL (0.0-1.0); Blood Urea Nitrogen 11 mg/dL (9-16); Calcium 9.1 mg/dL (8.4-10.2); Carbon Dioxide 25 mmol/L (22-29); Chloride 106 mmol/L (96-108); Estimated Glomerular Filt Rate > 60; Ethanol 11 mg/dL; Glucose Random 115 mg/dL (60-115); Potassium 3.5 mmol/L (3.3-5.1); Sodium 139 mmol/L (135-145)
[2024-07-09 04:54] LABS: Troponin-I High Sensitivity 5.5 ng/L (<3.5-35.0)
[2024-07-09 05:00] LABS: B Type Natriuretic Peptide 32 pg/mL (<100)
[2024-07-09] MEDS: ondansetron HCL 4 MG/2 ML VIAL IVPUSH (05:06)
[2024-07-09] MEDS: Aspirin 325 MG TABLET PO (05:06)
--- NOTE | 2024-07-09 06:39 | PC.NURSE ---
no additional vomiting. sleeping comfortably. cont to monitor.
[2024-07-09 07:14] LABS: Troponin-I High Sensitivity 111.8 ng/L (<3.5-35.0)
--- NOTE | 2024-07-09 07:29 | PC.NURSE ---
Addendum entered by Libertad Campuzano 07/09/24 07:53: correction: methadone dose 110mg Original Note: Pt's second Trop elevated ( from 5.5 to 111.8); repeat EKG completed; pt denies CP at this time; SR 70's per monitor; pt showing signs of opiate withdrawal: shaking, sweating, muscle aches; MD made aware; methadone dose of 120mg verified by [facility]; will admin per orders
--- NOTE | 2024-07-09 07:48 | HE.PHANOTE ---
re methadone verification last dose 110 mg given 07/03/24 @ [facility]. of note 6 take home doses provided
[2024-07-09] MEDS: methADONE HCl 20 MG/2 ML ORAL.CONC 110 MG PO (08:02)
[2024-07-09 09:30] LABS: Troponin-I High Sensitivity 801.6 ng/L (<3.5-35.0)
--- NOTE | 2024-07-09 09:39 | ECG_ITS ---
Test Reason : ELEVATED TROPONIN Blood Pressure : */* mmHG Vent. Rate : 75 BPM Atrial Rate : 75 BPM P-R Int : 170 ms QRS Dur : 90 ms QT Int : 412 ms P-R-T Axes : 47 52 48 degrees QTcB Int : 460 ms Normal sinus rhythm Normal ECG When compared to the previous EKG of No significant changes seen Referred By: Margie Dial Electronically Signed By: VICENTE SILVA MD
[2024-07-09 10:25] LABS: Amphetamine Screen Urine Not Detected (Not Detect); Barbiturates, Urine Not Detected (Not Detect); Benzodiazepines Screen Urine Not Detected (Not Detect); Buprenorphine Scr Not Detected (Not Detect); Cannabinoid Screen Urine POSITIVE (Not Detect); Cocaine Screen Urine Not Detected (Not Detect); Fentanyl, urine POSITIVE (Not Detect); Methadone Screen, Urine Positive (Not Detect); Opiate Screen Urine POSITIVE (Not Detect); Oxycodone Screen Urine Not Detected (Not Detect); Phencyclidine Screen Urine Not Detected (Not Detect)
[2024-07-09 10:30] LABS: D Dimer High Sensitivity < 150 NG/ML
[2024-07-09 10:31] LABS: Appearance Urine Clear; Color Urine Yellow; Glucose Urine UA Negative (Negative); Leukocyte Esterase Urine Negative (Negative); Nitrite Urine Negative (Negative); Urine Blood Negative (Negative); Urine Ketones Negative (Negative); Urine Protein Negative (Neg-Trace)
[2024-07-09 12:06] LABS: Troponin-I High Sensitivity 1898.6 ng/L (<3.5-35.0)
[2024-07-09] MEDS: Atorvastatin Calcium 80 MG TABLET PO (12:21)
[2024-07-09 12:26] LABS: Hematocrit 40.8 % (42.0-52.0); Hemoglobin 13.4 g/dl (14.0-18.0); Mean Corpuscular HGB Conc 32.8 g/dl (31.0-36.0); Mean Corpuscular Hemoglobin 27.9 pg (27.0-33.0); Mean Platelet Volume 9.1 fL (9.4-12.4); Platelet Count 336 X10*3/uL (160-400); Red Cell Distribution Width 14.3 % (11.0-16.0); White Blood Count 7.6 X10*3/uL (4.8-10.8)
[2024-07-09 12:28] LABS: Prothrombin Time 12.2 SEC (10.9-12.4)
[2024-07-09 12:30] LABS: PTT Heparin Drip 34.7 SEC (53-77.9)
[2024-07-09] MEDS: Heparin Sodium,Porcine 5,000 UNIT/ML VIAL 4000 UNIT IVPUSH (12:41)
[2024-07-09] MEDS: Heparin Sodium,Porcine/1/2NS 25,000 UNIT/250 ML IV.SOLN 10 UNIT IVCONT (12:44)
--- NOTE | 2024-07-09 13:05 | P.CONCA_ITS ---
History of Present Illness History of Present Illness Date of Service: 07/09/24 Chief complaint: NSTEMI Narrative: 39-year-old gentleman with background history of polysubstance abuse presenting with chest pain and NSTEMI. He has known history of coronary disease and had PCI done to mid LAD in 2015 in the setting of cocaine use. He said he has stopped using cocaine after that but has been using heroin. He used heroin yesterday and then presented to us with pain at rest while watching television. This was a pressure-like feeling in his chest. His initial biomarkers were 5.5 which went up to 111 then 801 and now 1898. He is chest pain-free. He is on methadone. He is also supposed to be on aspirin and atorvastatin. Labs EKG and imaging reviewed. [facility] Past Medical History Medical History GERD (gastroesophageal reflux disease) Methadone maintenance therapy patient Smoking Polysubstance abuse Heart attack Family History Family History Maternal Aunt Cancer Surgical History Surgical History H/O heart artery stent H/O cardiac catheterization Social History Social History Alcohol intake: never Patient Tobacco Use Status: Current everyday Tobacco user Cigarettes Per Day: 10 Smoked in Last 30 Days: Yes Use of substances other than those prescribed or required for medical reasons: Yes Substance Use Type: Heroin and Marijuana Substance Use Frequency: Chronic Longstanding Last Used Substance: Just Prior to Admission Any prior treatment program specific to substance use: Yes Advance Directives: No Advance Directives Information Provided: No Do you have a plan to hurt others: No Plan Meds Allergies Allergy/AdvReac Type Severity Reaction Status Date / Time No Known Allergies Allergy Verified 07/09/24 04:56 Active Medications: Current Medications Heparin Sodium (Porcine) (Heparin Sodium,Porcine 5,000 Unit/Ml Vial) 10,000 unit IVPUSH PROTOCOL BOLUS PRN; Protocol PRN Reason: 80 unit/kg - Heparin Protocol Heparin Sodium (Porcine) (Heparin Sodium,Porcine 5,000 Unit/Ml Vial) 5,000 unit IVPUSH PROTOCOL BOLUS PRN; Protocol PRN Reason: 40 unit/kg - Heparin Protocol Heparin Sodium/Sodium Chloride (Heparin Sodium,Porcine/1/2ns) 25,000 unit in 250 mls @ 0 mls/hr IVCONT .Q0M [facility]; Protocol Last Admin: 07/09/24 12:44 Dose: 7.58 units/kg/hr, 10 mls/hr Home Medications ?Medication ?Instructions ?Recorded ?Confirmed ?Last Taken ?Type aspirin 81 mg tablet,delayed 81 mg PO DAILY 07/28/23 05/17/24 Unknown History release atorvastatin 20 mg tablet 20 mg PO DAILY 07/28/23 05/17/24 Unknown History methadone 10 mg/mL oral concentrate 110 mg PO DAILY 07/28/23 07/09/24 07/08/24 History nicotine (polacrilex) 4 mg gum 4 mg PO Q2H PRN Nicotine Cravings 07/28/23 05/17/24 Unknown History mirtazapine 15 mg tablet 15 mg PO BEDTIME 05/17/24 05/17/24 Unknown History Physical Exam 2 Vital Signs: Vital Signs: Last Vital Signs Temp 98.1 F 07/09/24 09:08 Pulse 82 07/09/24 10:57 Resp 19 07/09/24 10:57 BP 149/79 H 07/09/24 10:57 Pulse Ox 93 07/09/24 10:57 O2 Del Method Room Air 07/09/24 10:57 O2 Flow Rate 2 07/09/24 06:00 BMI result Body Mass Index 37.6 GENERAL APPEARANCE: in no acute distress, pleasant. NECK: no carotid bruit, no jugular venous distention. SKIN: no suspicious lesions, warm and dry. HEART: no murmurs, regular rate and rhythm. LUNGS: clear to auscultation bilaterally. ABDOMEN: soft, nontender. EXTREMITIES: no edema. PERIPHERAL PULSES: equal. NEUROLOGIC: No gross deficits, AAO X 3 Objective Labs and Meds 07/09/24 12:15 07/09/24 04:28 Lab results: Laboratory Results - last 24 hr 07/09/24 07/09/24 07/09/24 04:28 06:32 08:57 WBC 6.9 RBC 4.60 Hgb 12.9 L Hct 38.5 L MCV 83.7 MCH 28.0 MCHC 33.5 RDW 14.6 Plt Count 320 MPV 9.0 L Immature Gran % (Auto) 0.1 Neut % (Auto) 31.9 L Lymph % (Auto) 49.7 H [place] % (Auto) 12.2 H Eos % (Auto) 4.8 H Baso % (Auto) 1.3 Lymph # (Auto) 3.4 [place] # (Auto) 0.8 Eos # (Auto) 0.3 Baso # (Auto) 0.1 Abs Immat Gran (auto) 0.01 Absolute Neuts (auto) 2.2 Absolute Nucleated RBC 0.000 Nucleated RBC % (auto) 0.0 PT INR aPTT Heparin Protocol D-Dimer High Sensitivty Sodium 139 Potassium 3.5 Chloride 106 Carbon Dioxide 25 Anion Gap 12 BUN 11 Creatinine 0.87 Estim Creat Clear Calc TNP Estimated GFR > 60 Random Glucose 115 Calcium 9.1 Total Bilirubin 0.3 Direct Bilirubin 0.1 AST 25 ALT 24 Alkaline Phosphatase 102 Troponin I High Sens 5.5 111.8 H* D 801.6 H* D B-Natriuretic Peptide 32 Total Protein 8.0 Albumin 3.8 Urine Color Urine Appearance Urine pH Ur Specific [place] Urine Protein Urine Glucose (UA) Urine Ketones Urine Blood Urine Nitrite Ur Leukocyte Esterase Urine Opiates Screen Ur Buprenorphine Scrn Ur Oxycodone Screen Urine Methadone Screen Urine Fentanyl Screen Ur Barbiturates Screen Ur Phencyclidine Scrn Ur Amphetamines Screen U Benzodiazepines Scrn Urine Cocaine Screen U Marijuana (THC) Screen Ethyl Alcohol 11 07/09/24 07/09/24 07/09/24 09:55 10:10 10:18 WBC RBC Hgb Hct MCV MCH MCHC RDW Plt Count MPV Immature Gran % (Auto) Neut % (Auto) Lymph % (Auto) [place] % (Auto) Eos % (Auto) Baso % (Auto) Lymph # (Auto) [place] # (Auto) Eos # (Auto) Baso # (Auto) Abs Immat Gran (auto) Absolute Neuts (auto) Absolute Nucleated RBC Nucleated RBC % (auto) PT INR aPTT Heparin Protocol D-Dimer High Sensitivty < 150 Sodium Potassium Chloride Carbon Dioxide Anion Gap BUN Creatinine Estim Creat Clear Calc Estimated GFR Random Glucose Calcium Total Bilirubin Direct Bilirubin AST ALT Alkaline Phosphatase Troponin I High Sens B-Natriuretic Peptide Total Protein Albumin Urine Color Yellow Urine Appearance Clear Urine pH 8.0 Ur Specific [place] 1.010 Urine Protein Negative Urine Glucose (UA) Negative Urine Ketones Negative Urine Blood Negative Urine Nitrite Negative Ur Leukocyte Esterase Negative Urine Opiates Screen POSITIVE H Ur Buprenorphine Scrn Not Detected Ur Oxycodone Screen Not Detected Urine Methadone Screen Positive H Urine Fentanyl Screen POSITIVE H Ur Barbiturates Screen Not Detected Ur Phencyclidine Scrn Not Detected Ur Amphetamines Screen Not Detected U Benzodiazepines Scrn Not Detected Urine Cocaine Screen Not Detected U Marijuana (THC) Screen POSITIVE H Ethyl Alcohol 07/09/24 07/09/24 11:24 12:15 WBC 7.6 RBC 4.80 Hgb 13.4 L Hct 40.8 L MCV 85.0 MCH 27.9 MCHC 32.8 RDW 14.3 Plt Count 336 MPV 9.1 L Immature Gran % (Auto) Neut % (Auto) Lymph % (Auto) [place] % (Auto) Eos % (Auto) Baso % (Auto) Lymph # (Auto) [place] # (Auto) Eos # (Auto) Baso # (Auto) Abs Immat Gran (auto) Absolute Neuts (auto) Absolute Nucleated RBC 0.000 Nucleated RBC % (auto) 0.0 PT 12.2 INR 1.0 aPTT Heparin Protocol 34.7 L D-Dimer High Sensitivty Sodium Potassium Chloride Carbon Dioxide Anion Gap BUN Creatinine Estim Creat Clear Calc Estimated GFR Random Glucose Calcium Total Bilirubin Direct Bilirubin AST ALT Alkaline Phosphatase Troponin I High Sens 1898.6 H* D B-Natriuretic Peptide Total Protein Albumin Urine Color Urine Appearance Urine pH Ur Specific [place] Urine Protein Urine Glucose (UA) Urine Ketones Urine Blood Urine Nitrite Ur Leukocyte Esterase Urine Opiates Screen Ur Buprenorphine Scrn Ur Oxycodone Screen Urine Methadone Screen Urine Fentanyl Screen Ur Barbiturates Screen Ur Phencyclidine Scrn Ur Amphetamines Screen U Benzodiazepines Scrn Urine Cocaine Screen U Marijuana (THC) Screen Ethyl Alcohol Assessment and Plan (1) Non-ST elevation [place] (NSTEMI): Status: Acute Plan [age] year gentleman with background of heroin use presenting with chest discomfort and NSTEMI. He has known history of coronary disease and underwent LAD PCI in 2014 when he was using cocaine. He is saying he has not used cocaine since then and his tox screen is positive for opiates, methadone, fentanyl and marijuana. EKGs has no dynamic changes. Hemodynamically stable and pain-free currently. We will treat him for NSTEMI with heparin drip. He should continue baby aspirin and atorvastatin 80 mg. Load him with 300 mg of Plavix and start Plavix 75 mg daily from tomorrow. He has been accepted at [facility] and will be transferred later today. We plan to do diagnostic angiogram on Wednesday. Thank you for allowing me to participate in the care of your patient. Please feel free to contact me if you have any questions. Procedures Date of Service Date of Service: 07/09/24
--- NOTE | 2024-07-09 13:07 | PC.NURSE ---
Second IV site obtained and Heparin drip started per protocol(10 ml/hr; 7.58 units/kg/min); pt aware of pending txto another facility for NSTEMI; pt denies pain at this time; vss; SR 70's
[2024-07-09] MEDS: Clopidogrel Bisulfate 300 MG TABLET PO (13:35)
[2024-07-09] MEDS: Metoprolol Tartrate 25 MG TABLET PO (13:35)
--- NOTE | 2024-07-09 14:58 | PC.NURSE ---
Report called to PONCE Kunz at [facility] for transfer; bedside report given to ALS crew; pt aware of transfer; Heparin gtt infusing
== END 2024-07-09 15:05 | disposition short-term general hospital (02) ==
PROVIDERS: Physician Assistant Medical; Emergency Provider Emergency Medicine; PCP Nurse Practitioner Primary Care
DX: R07.89 Other chest pain (principal); F11.10 Opioid abuse, uncomplicated; R11.2 Nausea with vomiting, unspecified; R06.02 Shortness of breath; R00.1 Bradycardia, unspecified; I49.8 Other specified cardiac arrhythmias; F17.210 Nicotine dependence, cigarettes, uncomplicated; R79.89 Other specified abnormal findings of blood chemistry; Z79.899 Other long term (current) drug therapy; Z51.81 Encounter for therapeutic drug level monitoring
CPT/HCPCS: 36415; 80048; 80076; 80307; 81003; 83880; 84484; 85025; 85027; 85379; 85610; 85730; 93005; 96374; 96375; 96376; 99285; J1644; J2405

== ENCOUNTER → 2024-07-09 04:23 | Outpatient (BNV) | payer MEDICAID, SELFPAY | PROVIDERS: Emergency Provider Emergency Medicine; PCP Nurse Practitioner Primary Care; Visit Provider Internal Medicine Cardiovascular Disease | DX: I21.4 Non-ST elevation (NSTEMI) myocardial infarction (principal) | CPT/HCPCS: 93010 ==

== ENCOUNTER → 2024-07-11 23:59 | Outpatient (BNV) | payer MEDICAID, SELFPAY | PROVIDERS: PCP Nurse Practitioner Primary Care; Visit Provider Internal Medicine Cardiovascular Disease | DX: I21.4 Non-ST elevation (NSTEMI) myocardial infarction (principal) | CPT/HCPCS: 92928; 92978; 93458; 99152 ==

== ENCOUNTER 2024-09-03 19:26 | Emergency (ER) | payer OTHER, SELFPAY ==
[2024-09-03 19:36] VITALS: BP 170/90; PULSE 78; O2SAT 97; BMI 34.9
[2024-09-03 19:38] VITALS: BP 132/79; PULSE 89; RESP 18; TEMP 36.6; O2SAT 96
--- NOTE | 2024-09-03 21:05 | ED.GENADULT ---
HPI - General Adult General Chief complaint: General Medical Stated complaint: heroin usage, withdrawing, shaky, sweat chills Time Seen by Provider: 09/03/24 21:05 History of Present Illness ED Provider: Ariella COVINGTON narrative: The patient is a 39-year-old male with a history of opioid use disorder. He says that he is on methadone that he gets at the [facility]. Despite being on methadone he also uses heroin. He says that he takes the heroin nasally. He says that he used heroin yesterday and the day before that. He says that this evening he became sweaty and chilled and was shaking a lot. He thought that perhaps he was in some kind of withdrawal from the heroin. He felt unwell and came to the emergency room. He was feeling better by the time he got here. Related Data Home Medications ?Medication ?Instructions ?Recorded ?Confirmed aspirin 81 mg tablet,delayed 81 mg PO DAILY 07/28/23 05/17/24 release atorvastatin 20 mg tablet 20 mg PO DAILY 07/28/23 05/17/24 methadone 10 mg/mL oral concentrate 110 mg PO DAILY 07/28/23 07/09/24 nicotine (polacrilex) 4 mg gum 4 mg PO Q2H PRN Nicotine Cravings 07/28/23 05/17/24 mirtazapine 15 mg tablet 15 mg PO BEDTIME 05/17/24 05/17/24 Previous Rx's ?Medication ?Instructions ?Recorded omeprazole 20 mg capsule,delayed 20 mg PO DAILY #90 caps 02/04/24 release Allergies Allergy/AdvReac Type Severity Reaction Status Date / Time No Known Allergies Allergy Verified 09/03/24 19:40 Review of Systems Review of Systems: Yes all other systems are reviewed and are negative FOR[facility]LY [facility] Past Medical History Medical History GERD (gastroesophageal reflux disease) Methadone maintenance therapy patient Smoking Polysubstance abuse Heart attack Surgical History H/O heart artery stent H/O cardiac catheterization Family History Family History Maternal Aunt Cancer Social History Social History Alcohol intake: never Patient Tobacco Use Status: Current everyday Tobacco user Cigarettes Per Day: 10 Smoked in Last 30 Days: Yes Use of substances other than those prescribed or required for medical reasons: Yes Substance Use Type: Heroin Substance Use Frequency: Chronic Longstanding Last Used Substance: Days (ago) Any prior treatment program specific to substance use: Yes Advance Directives: No Advance Directives Information Provided: No Do you have a plan to hurt others: No Plan Physical Exam ED Vital Signs: Vital Signs - 24 hr 09/03/24 19:38 09/03/24 21:39 09/04/24 00:47 Temperature 97.9 F 98.1 F 98.1 F Pulse Rate 89 62 62 Respiratory Rate 18 14 14 Blood Pressure 132/79 140/78 H 140/78 H Pulse Oximetry 96 96 96 Oxygen Delivery Method Room Air Room Air Room Air BMI result Body Mass Index 34.9 Const Other: The patient is a somewhat chronically ill-appearing 39-year-old. He is awake and alert. He does not seem obviously acutely ill. HENMT Other: Face is symmetrical. Mucous membranes moist. Eyes General: appearance normal, both eyes and all related structures Conjunctivae: conjunctivae normal Sclerae: sclerae normal Pupils: Equal, round and reactive pupils present EOM: EOMs intact bilaterally Neck Neck: Yes full ROM and Yes no lymphadenopathy Resp Effort & Inspection: normal respiratory effort Auscultation: clear to auscultation bilaterally Cardio Rate: regular rate Rhythm: regular rhythm Heart sounds: S1 normal heart sound present, S2 normal heart sound present and Murmur heart sound present (No murmur heard) GI Other: The abdomen is soft and nontender Skin General skin exam: no rashes or lesions noted Neuro Other: The patient is awake and alert with a normal mental status. Cranial nerves 2-12 are intact. He moves his extremities normally and appropriately. He seems neurologically intact. Cranial nerves: Yes Equal, round and reactive pupils present Extrem Other: No peripheral edema. Medical Decision Making Medical Decision Making MDM Narrative: The patient is a 39-year-old male with a history of opioid use disorder. He is on daily methadone. Despite being on daily methadone he has intermittently continued to use heroin. He uses heroin nasally. He does not use any IV drugs. He used heroin over the last 2 days. This evening he had an episode of feeling sweaty and shaky and he thought he was having withdrawal symptoms even though he had taken his methadone dose this morning. After he arrived in the emergency room however his symptoms seemed to have resolved. A medical workup was done which is unremarkable. Labs are unremarkable. Clinically the patient looks well. Vital signs are unremarkable. The patient was given the option of staying in the emergency room to talk to somebody from the recovery team in the morning if he wished or he could be discharged and go home and continue his methadone use. He chose to go home. He was advised to follow up with his PCP at the [facility]. Lab Data 09/03/24 22:01 09/03/24 22:01 Labs: Lab Results 09/03/24 09/03/24 Range/Units 22:01 23:23 WBC 10.1 (4.8-10.8) X10*3/uL RBC 5.06 (4.60-5.80) X10*6/uL Hgb 14.1 (14.0-18.0) g/dl Hct 42.0 (42.0-52.0) % MCV 83.0 (80.0-98.0) fL MCH 27.9 (27.0-33.0) pg MCHC 33.6 (31.0-36.0) g/dl RDW 14.3 (11.0-16.0) % Plt Count 302 (160-400) X10*3/uL MPV 9.3 L (9.4-12.4) fL Immature Gran % (Auto) 0.2 (0.0-0.4) % Neut % (Auto) 66.4 (45-73) % Lymph % (Auto) 24.6 (20-40) % [place] % (Auto) 6.7 (2-11) % Eos % (Auto) 1.2 (0-4) % Baso % (Auto) 0.9 (0-2) % Lymph # (Auto) 2.5 (1.2-4.9) X10*3/uL [place] # (Auto) 0.7 (0.1-1.2) X10*3/uL Eos # (Auto) 0.1 (0.0-0.4) X10*3/uL Baso # (Auto) 0.1 (0.0-0.2) X10*3/uL Abs Immat Gran (auto) 0.02 (0.00-0.03) X10*3/uL Absolute Neuts (auto) 6.7 (2.0-8.3) x10*3/uL Absolute Nucleated RBC 0.000 (0.0-0.012) X10*3/uL Nucleated RBC % (auto) 0.0 (0.0-0.2) /100WBC Sodium 140 (135-145) mmol/L Potassium 4.2 (3.3-5.1) mmol/L Chloride 106 (96-108) mmol/L Carbon Dioxide 23 (22-29) mmol/L Anion Gap 15 (12-20) BUN 8 L (9-16) mg/dL Creatinine 0.93 (0.5-1.4) mg/dL Estim Creat Clear Calc 135.2 Estimated GFR > 60 Random Glucose 75 (60-115) mg/dL Calcium 9.2 (8.4-10.2) mg/dL Magnesium 2.0 (1.6-2.6) mg/dL Total Bilirubin 0.4 (0.0-1.0) mg/dL Direct Bilirubin 0.1 (0.0-0.5) mg/dL AST 23 (5-37) U/L ALT 23 (0-40) U/L Alkaline Phosphatase 110 (39-117) U/L Troponin I High Sens < 2.7 D (<3.5-35.0) ng/L Total Protein 8.2 H (6.5-8.0) g/dL Albumin 3.9 (3.5-5.0) g/dL Urine Color Yellow Urine Appearance Clear Urine pH 8.0 (5.0-9.0) Ur Specific [place] 1.015 (1.005-1.025) Urine Protein Negative (Neg-Trace) mg/dL Urine Glucose (UA) Negative (Negative) mg/dL Urine Ketones Negative (Negative) mg/dL Urine Blood Negative (Negative) Urine Nitrite Negative (Negative) Ur Leukocyte Esterase Trace H (Negative) Urine RBC 0-2 (0-2) /HPF Urine WBC 0-5 (0-5) /HPF Ur Squamous Epith Cells 0-2 (0-2) /HPF Urine Bacteria None Seen (None Seen) Hyaline Casts 0-2 (0-2) /LPF Ethyl Alcohol < 10 mg/dL Influenza Type A (PCR) NEGATIVE (Negative) Influenza Type B (PCR) NEGATIVE (Negative) RSV RNA Qual (PCR) NEGATIVE (Negative) SARS-CoV-2 RNA (RT-PCR) NEGATIVE (Negative) Discharge Plan Discharge Clinical Impression: Shaking chills Patient Disposition: Home, Self-Care Additional Instructions: Please continue your methadone. Please do your best to avoid using any heroin. Please follow up soon with your regular doctor. Return to the emergency room if you feel significantly worse. Prescriptions: No Action omeprazole 20 mg capsule,delayed release(DR/EC) 20 mg PO DAILY Qty: 90 2RF mirtazapine 15 mg tablet 15 mg PO BEDTIME atorvastatin 20 mg tablet 20 mg PO DAILY aspirin 81 mg tablet,delayed release (DR/EC) 81 mg PO DAILY nicotine (polacrilex) 4 mg gum 4 mg PO Q2H PRN (Reason: Nicotine Cravings) methadone 10 mg/mL concentrate 110 mg PO DAILY Referrals: [facility] [Provider Group] (Opioid use disorder) Interventions: ED Discharge Assessment Last Done: 09/04/24 00:47 Discharge Date/Time: 09/04/24 00:48 Print Language: Congolese
--- NOTE | 2024-09-03 21:37 | ECG_ITS ---
Test Reason : WEAKNESS Blood Pressure : */* mmHG Vent. Rate : 56 BPM Atrial Rate : 56 BPM P-R Int : 152 ms QRS Dur : 78 ms QT Int : 470 ms P-R-T Axes : 49 61 47 degrees QTcB Int : 453 ms Sinus bradycardia Otherwise normal ECG When compared with ECG of 09-Jul-2024 09:57, No significant change was found Referred By: Bryn Krishnan Electronically Signed By: Lonnie Ashton
[2024-09-03 21:39] VITALS: BP 140/78; PULSE 62; RESP 14; TEMP 36.7; O2SAT 96
[2024-09-03 22:06] LABS: MANUAL DIFF FLAG NO
[2024-09-03 22:07] LABS: Basophils Absolute Auto 0.1 X10*3/uL (0.0-0.2); Basophils Percent Auto 0.9 % (0-2); Eosinophils Absolute Auto 0.1 X10*3/uL (0.0-0.4); Eosinophils Percent Auto 1.2 % (0-4); Hemoglobin 14.1 g/dl (14.0-18.0); Imm Gran Abs Auto 0.02 X10*3/uL (0.00-0.03); Imm Gran Pct Auto 0.2 % (0.0-0.4); Lymphocytes Absolute Auto 2.5 X10*3/uL (1.2-4.9); Lymphocytes Percent Auto 24.6 % (20-40); Mean Corpuscular HGB Conc 33.6 g/dl (31.0-36.0); Mean Corpuscular Hemoglobin 27.9 pg (27.0-33.0); Mean Platelet Volume 9.3 fL (9.4-12.4); Monocytes Absolute Auto 0.7 X10*3/uL (0.1-1.2); Monocytes Percent Auto 6.7 % (2-11); Neutrophils Absolute Auto 6.7 x10*3/uL (2.0-8.3); Neutrophils Percent Auto 66.4 % (45-73); Platelet Count 302 X10*3/uL (160-400); Red Blood Count 5.06 X10*6/uL (4.60-5.80); Red Cell Distribution Width 14.3 % (11.0-16.0); White Blood Count 10.1 X10*3/uL (4.8-10.8)
[2024-09-03 22:23] LABS: Alanine Aminotransferase 23 U/L (0-40); Albumin Level 3.9 g/dL (3.5-5.0); Alkaline Phosphatase 110 U/L (39-117); Anion Gap 15 (12-20); Aspartate Amino Transferase 23 U/L (5-37); Bilirubin Direct 0.1 mg/dL (0.0-0.5); Bilirubin Total 0.4 mg/dL (0.0-1.0); Blood Urea Nitrogen 8 mg/dL (9-16); Calcium 9.2 mg/dL (8.4-10.2); Carbon Dioxide 23 mmol/L (22-29); Chloride 106 mmol/L (96-108); Creatinine Clr Calc Pharmacy 135.2; Estimated Glomerular Filt Rate > 60; Ethanol < 10 mg/dL; Glucose Random 75 mg/dL (60-115); Potassium 4.2 mmol/L (3.3-5.1); Sodium 140 mmol/L (135-145); Total Protein 8.2 g/dL (6.5-8.0)
[2024-09-03 22:30] LABS: Troponin-I High Sensitivity < 2.7 ng/L (<3.5-35.0)
[2024-09-03 22:45] LABS: Influenza A PCR NEGATIVE (Negative); Influenza B PCR NEGATIVE (Negative); Resp Syncy Virus RNA Qual PCR NEGATIVE (Negative); SARS COV2 PCR INHOUSE NEGATIVE (Negative)
[2024-09-03 23:34] LABS: Appearance Urine Clear; Color Urine Yellow; Glucose Urine UA Negative (Negative); Leukocyte Esterase Urine Trace (Negative); Nitrite Urine Negative (Negative); Specific Gravity - Urine 1.015 (1.005-1.025); UMIC TRIGGER UACC YES; Urine Blood Negative (Negative); Urine Ketones Negative (Negative); Urine Protein Negative (Neg-Trace)
[2024-09-03 23:41] LABS: Bacteria Urine None Seen (None Seen); Hyaline Casts Urine 0-2 /LPF (0-2); RBC Urine 0-2 /HPF (0-2); Squamous Epithelial Cell Urine 0-2 /HPF (0-2); WBC Urine 0-5 /HPF (0-5)
[2024-09-04 00:47] VITALS: BP 140/78; PULSE 62; RESP 14; TEMP 36.7; O2SAT 96
== END 2024-09-04 00:48 | disposition home or self-care (01) ==
PROVIDERS: Emergency Provider Emergency Medicine
DX: R68.83 Chills (without fever) (principal); F19.10 Other psychoactive substance abuse, uncomplicated; F11.20 Opioid dependence, uncomplicated; F17.210 Nicotine dependence, cigarettes, uncomplicated; Z03.818 Encounter for observation for suspected exposure to other biological agents ruled out; Z79.899 Other long term (current) drug therapy; Z79.82 Long term (current) use of aspirin; Z79.02 Long term (current) use of antithrombotics/antiplatelets
CPT/HCPCS: 0241U; 36415; 80048; 80076; 80307; 81001; 83735; 84484; 85025; 93005; 99283; 99284

== ENCOUNTER → 2024-09-03 21:37 | Outpatient (BNV) | payer OTHER, SELFPAY | PROVIDERS: Emergency Provider Emergency Medicine; Visit Provider Internal Medicine Cardiovascular Disease | DX: R00.1 Bradycardia, unspecified (principal) | CPT/HCPCS: 93010 ==

== ENCOUNTER 2024-09-15 10:49 | Outpatient (REF) | payer MEDICAID, SELFPAY ==
[2024-09-15 12:39] LABS: Amphetamine Screen Urine Not Detected (Not Detect); Barbiturates, Urine Not Detected (Not Detect); Benzodiazepines Screen Urine Not Detected (Not Detect); Buprenorphine Scr Not Detected (Not Detect); Cannabinoid Screen Urine POSITIVE (Not Detect); Cocaine Screen Urine Not Detected (Not Detect); Fentanyl, urine POSITIVE (Not Detect); Methadone Screen, Urine Positive (Not Detect); Opiate Screen Urine Not Detected (Not Detect); Oxycodone Screen Urine Not Detected (Not Detect); Phencyclidine Screen Urine Not Detected (Not Detect)
== END 2024-09-15 10:50 | disposition home or self-care (01) ==
LOC: HO.LAB 10:49
PROVIDERS: PCP Nurse Practitioner Primary Care; Visit Provider Internal Medicine
DX: I21.4 Non-ST elevation (NSTEMI) myocardial infarction (principal)
CPT/HCPCS: 80307

== ENCOUNTER 2024-11-23 08:00 | Emergency (ER) | payer MEDICAID, SELFPAY ==
[2024-11-23 08:16] VITALS: BP 160/82; PULSE 80; O2SAT 95
[2024-11-23 08:18] VITALS: BP 127/73; PULSE 68; RESP 18; TEMP 36.8; O2SAT 97; BMI 43.2
--- NOTE | 2024-11-23 08:30 | PC.NURSE ---
safety search performed
--- NOTE | 2024-11-23 08:43 | ED_ITS ---
HPI - Alcohol General Chief Complaint: ETOH/Substance Use Stated Complaint: Alcohol relapse wants detox Time Seen by Provider: 11/23/24 08:13 Source: patient and EMS Mode of arrival: EMS Limitations: no limitations History of Present Illness ED Provider: Robert Almaguer PA-C HPI narrative: 39-year-old male with history of opiate use disorder on methadone 150 mg per day, continuing to snore half a bundle of heroin per day presenting to the ER for detox. He states his mother just and he has been using more than usual. He wants detox. He states he woke up today with nausea and vomiting. He was using 2 bags in between vomiting episodes to see if it would help. He took his methadone but not sure if he threw some of it up. He also endorsed bubbling stomach and headache. Denies other substance use aside from marijuana. No ETOH. No SI or HI. He was trying to go to [facility] for detox but today's N/V precluded him from going there. complaint: desires rehab Recent trauma: No Associated symptoms: nausea, vomiting, diaphoresis and depression Treatments prior to arrival: none Related Data Home Medications ?Medication ?Instructions ?Recorded ?Confirmed aspirin 81 mg tablet,delayed 81 mg PO DAILY 07/28/23 05/17/24 release atorvastatin 20 mg tablet 20 mg PO DAILY 07/28/23 05/17/24 methadone 10 mg/mL oral concentrate 110 mg PO DAILY 07/28/23 07/09/24 nicotine (polacrilex) 4 mg gum 4 mg PO Q2H PRN Nicotine Cravings 07/28/23 05/17/24 mirtazapine 15 mg tablet 15 mg PO BEDTIME 05/17/24 05/17/24 Previous Rx's ?Medication ?Instructions ?Recorded omeprazole 20 mg capsule,delayed 20 mg PO DAILY #90 caps 02/04/24 release amoxicillin 875 mg-potassium 1 tab PO BID #14 tabs 11/23/24 clavulanate 125 mg tablet Allergies Allergy/AdvReac Type Severity Reaction Status Date / Time No Known Allergies Allergy Verified 11/23/24 08:23 Review of Systems 2 Review of Systems: Yes all other systems are reviewed and are negative PMFSH Past Medical History Medical History GERD (gastroesophageal reflux disease) Methadone maintenance therapy patient Smoking Polysubstance abuse Heart attack Surgical History H/O heart artery stent H/O cardiac catheterization Family History Family History Maternal Aunt Cancer Social History Social History Alcohol intake: never Patient Tobacco Use Status: Current everyday Tobacco user Cigarettes Per Day: 10 Smoked in Last 30 Days: Yes Use of substances other than those prescribed or required for medical reasons: Yes Substance Use Type: Heroin Advance Directives: No Advance Directives Information Provided: No Do you have a plan to hurt others: No Plan Physical Exam ED Vital Signs: Vital Signs - 24 hr 11/23/24 08:18 11/23/24 13:01 Temperature 98.3 F Pulse Rate 68 80 Respiratory Rate 18 16 Blood Pressure 127/73 112/62 Pulse Oximetry 97 97 Oxygen Delivery Method Room Air Room Air BMI result Body Mass Index 43.2 Appearance: Alert. Oriented X3. No acute distress. Head: normocephalic, atraumatic. Eyes: Pupils equal, round and reactive to light. ENT: Pharynx normal. No tonsillar swelling or exudate. Neck: Normal inspection. Neck supple. CVS: Normal heart rate and rhythm. Pulses normal. Respiratory: No respiratory distress. Breath sounds normal. Abdomen: Obese, Soft and nontender. +BS x4 Skin: Skin warm and dry. Normal skin color. Normal skin turgor. No rashes. Extremities: lower legs with shiney, erythematous, warm skin anteriorly. no calf tenderness. 1+ edema of lower legs, mild tenderness. Neuro/psych: Oriented X 3. No motor deficit. No sensory deficit. CN II-XII intact. Normal speech and cognition. No SI. answers questions appropriately. Medical Decision Making Medical Decision Making MDM Narrative: 39-year-old male with history of opiate use disorder on 150 mg of methadone a day, continuing to snore 1/2 bundle of heroin per day presenting for detox. He arrives complaining of nausea, vomiting, headaches. His vital signs are stable. His physical exam is unremarkable. His labs are reassuring, no major metabolic derangement. LFTs are normal. He denies any injection of drugs. No track reveles on exam. He does have bilateral lower extremity erythema and warmth consistent with cellulitis. Will treat with oral antibiotics. He is not septic at this time. Patient is medically cleared for Recovery team evaluation. Physician observation started at 10:02 am. Patient is awake, alert, resting comfortably on the stretcher. 14:57 - Patient has been accepted to [facility]. Physician observation discontinued at this time. He does not require inpatient care. He can safely be discharged to [facility] for detox. Patient agrees with plan. Differential Diagnosis Differential Diagnoses: The differential diagnosis associated with the presentation includes Opiate intoxication, opiate withdrawal, gastroenteritis, gastritis, dehydration LE cellulitis, lymphedema, low suspicion for DVTs Admission/Observation Consideration of admission/observation: Escalation of care including admission/observation considered Lab Data MDM Lab Attestation statement: I reviewed the patient's lab results. Mild normocytic anemia, mild bicarb elevation, no major metabolic derangement 11/23/24 09:06 11/23/24 09:06 Labs: Lab Results 11/23/24 11/23/24 Range/Units 09:06 10:41 WBC 7.3 (4.8-10.8) X10*3/uL RBC 4.47 L (4.60-5.80) X10*6/uL Hgb 12.3 L (14.0-18.0) g/dl Hct 37.3 L (42.0-52.0) % MCV 83.4 (80.0-98.0) fL MCH 27.5 (27.0-33.0) pg MCHC 33.0 (31.0-36.0) g/dl RDW 14.5 (11.0-16.0) % Plt Count 312 (160-400) X10*3/uL MPV 9.1 L (9.4-12.4) fL Immature Gran % (Auto) 0.3 (0.0-0.4) % Neut % (Auto) 59.1 (45-73) % Lymph % (Auto) 26.2 (20-40) % Person % (Auto) 9.6 (2-11) % Eos % (Auto) 4.0 (0-4) % Baso % (Auto) 0.8 (0-2) % Lymph # (Auto) 1.9 (1.2-4.9) X10*3/uL Person # (Auto) 0.7 (0.1-1.2) X10*3/uL Eos # (Auto) 0.3 (0.0-0.4) X10*3/uL Baso # (Auto) 0.1 (0.0-0.2) X10*3/uL Abs Immat Gran (auto) 0.02 (0.00-0.03) X10*3/uL Absolute Neuts (auto) 4.3 (2.0-8.3) x10*3/uL Absolute Nucleated RBC 0.000 (0.0-0.012) X10*3/uL Nucleated RBC % (auto) 0.0 (0.0-0.2) /100WBC Sodium 139 (135-145) mmol/L Potassium 4.3 (3.3-5.1) mmol/L Chloride 104 (96-108) mmol/L Carbon Dioxide 30 H (22-29) mmol/L Anion Gap 9 L (12-20) BUN 11 (9-16) mg/dL Creatinine 1.02 (0.5-1.4) mg/dL Estim Creat Clear Calc 138.0 Estimated GFR > 60 Random Glucose 119 H (60-115) mg/dL Calcium 9.0 (8.4-10.2) mg/dL Magnesium 2.0 (1.6-2.6) mg/dL Total Bilirubin 0.2 (0.0-1.0) mg/dL Direct Bilirubin < 0.2 (0.0-0.5) mg/dL AST 23 (5-37) U/L ALT 18 (0-40) U/L Alkaline Phosphatase 99 (39-117) U/L Total Protein 7.1 (6.5-8.0) g/dL Albumin 3.6 (3.5-5.0) g/dL Lipase 12 (8-78) U/L Urine Color Yellow Urine Appearance Clear Urine pH 6.5 (5.0-9.0) Ur Specific [place] 1.020 (1.005-1.025) Urine Protein Negative (Neg-Trace) mg/dL Urine Glucose (UA) Negative (Negative) mg/dL Urine Ketones Trace (Negative) mg/dL Urine Blood Trace H (Negative) Urine Nitrite Negative (Negative) Ur Leukocyte Esterase Negative (Negative) Urine RBC 3-5 H (0-2) /HPF Urine WBC 0-5 (0-5) /HPF Ur Squamous Epith Cells 0-2 (0-2) /HPF Urine Bacteria None Seen (None Seen) Hyaline Casts 0-2 (0-2) /LPF Urine Opiates Screen POSITIVE H (Not Detect) Ur Buprenorphine Scrn Not Detected (Not Detect) ng/mL Ur Oxycodone Screen Not Detected (Not Detect) ng/mL Urine Methadone Screen Positive H (Not Detect) ng/mL Urine Fentanyl Screen POSITIVE H (Not Detect) Ur Barbiturates Screen Not Detected (Not Detect) Ur Phencyclidine Scrn Not Detected (Not Detect) Ur Amphetamines Screen Not Detected (Not Detect) U Benzodiazepines Scrn Not Detected (Not Detect) Urine Cocaine Screen Not Detected (Not Detect) U Marijuana (THC) Screen POSITIVE H (Not Detect) Ethyl Alcohol < 10 mg/dL Independent Historian Clinical information obtained from an independent historian. History obtained from or confirmed by: EMS External Record Review External record reviewed: Prior outpatient labs Tests considered The following testing was considered but not selected: LE dopplers considered, low suspicion for DVTs Prescription Management I considered prescription management with: Other (antiemetic, bentyl, clonidine) Chronic Conditions Patient?s care impacted by: Other (opiate use disorder) Social Determinants Patient?s care significantly limited by Social Determinants of Health including: Other Social Determinant of Health Critical Care Time Critical Care Time Critical Care Time: No Discharge Plan Discharge Clinical Impression: Opioid use disorder Cellulitis Qualifiers: Site of cellulitis: extremity Site of cellulitis of extremity: lower extremity Laterality: unspecified laterality Qualified Code(s): L03.119 - Cellulitis of unspecified part of limb Patient Disposition: Xfer Inpatient Rehab Fac Transfer Details: [facility] Instructions: Cellulitis (ED), Opioid Use Disorder (ED) Additional Instructions: Take the prescribed antibiotics as directed, complete the entire course and do not miss any doses if you have worsening pain and redness in your legs after the antibiotics are completed, seek medical care right away elevate you legs when able do not use fentanyl or heroin. it can kill you continue your methadone complete your detox at [facility] Prescriptions: New amoxicillin-pot clavulanate 875-125 mg tablet 1 tab PO BID Qty: 14 0RF No Action omeprazole 20 mg capsule,delayed release(DR/EC) 20 mg PO DAILY Qty: 90 2RF mirtazapine 15 mg tablet 15 mg PO BEDTIME atorvastatin 20 mg tablet 20 mg PO DAILY aspirin 81 mg tablet,delayed release (DR/EC) 81 mg PO DAILY nicotine (polacrilex) 4 mg gum 4 mg PO Q2H PRN (Reason: Nicotine Cravings) methadone 10 mg/mL concentrate 110 mg PO DAILY Referrals: [place],Replaced By [facility] [Primary Care Provider] - Print Language: Lithuanian
--- OUTSIDE RECORDS SUMMARY | 2024-11-23 08:53 | XMS_ITS | Clinical Summary ---
Author Organization [employer] Address [address] [facility] [address] [place] [address] Care Team Providers Care Certified Medical Coder Name Role Phone Pauline Burns Primary Care Provider [phone] Allergies No known active allergies Medications * This document contains information received from the source organization and may not represent a complete record from that organization. aspirin 81 MG EC tablet Take 1 tablet by mouth 1 (one) time each day. Active famotidine (Pepcid) 20 MG tablet Take 1 tablet by mouth every 12 (twelve) hours. 2 Active ketoconazole (NIZOral) 2 % shampoo Apply topically 1 (one) time each day. 2 Active methadone (Dolophine) 5 MG tablet Take 1 tablet by mouth in the morning. 2 Active clopidogrel (Plavix) 75 MG tablet Take 1 tablet (75 mg) by mouth Once per day. 90 tablet 4 Active atorvastatin (Lipitor) 80 MG tablet Take 1 tablet by mouth at bedtime. 5 Active hydrOXYzine HCl (Atarax) 25 MG tablet Take 1-2 tablets by mouth if needed in the morning and at bedtime. 5 Active mirtazapine (Remeron) 15 MG tablet Take 1 tablet by mouth at bedtime. 4 Active omeprazole (PriLOSEC) [address] capsule Take 1 capsule by mouth Once per day. 4 Active triamcinolone (Kenalog) 0.1 % creamIndications: Venous stasis dermatitis of both lower extremities Apply topically if needed in the morning and at bedtime for rash. 80 g 1 5 Active varenicline (Chantix) 1 MG tabletIndications :Smokes cigarettes Take 1 tablet (1 mg) by mouth 2 times daily. Take with full glass of water. 60 tablet 1 Active losartan (Cozaar) 25 MG tabletIndications :Coronary artery disease involving point lay ira heart without angina pectoris, unspecified vessel or lesion type,Essential hypertension Take 1 tablet (25 mg) by mouth Once per day. 90 tablet 3 Active metoprolol succinate XL (Toprol-XL) 25 MG 24 hr tabletIndications :Coronary artery disease involving point lay ira heart without angina pectoris, unspecified vessel or lesion type Take 1 tablet (25 mg) by mouth Once per day. 90 tablet 3 Active Active Problems Problem Noted Date Diagnosed Date Coronary artery disease invo lving point lay ira heart without angina pectoris 09/13/2024 NSTEMI (non-ST elevated myocardial infarction) 0 08/25/2024 Venous stasis dermatitis of both lower extremiti es 08/25/2024 Diaphoresis 07/13/2024 Assessment & Plan (07/13/2024 3:24 PM EST): Presented diaphoretic, ill-appearing, tachycardic and hypertensive. Was discharged from [facility] on 07/11/24 for NSTEMI. EKG normal in clinic upon arrival. Suspect withdrawal given substance abuse, although pt stated he took his methadone does this morning. Given hx and symptoms will transport pt back to [facility] with ambulance. Acute abdominal pain in right flank 07/13/2024 Assessment & Plan (07/13/2024 3:19 PM EST): had acute, sharp(what he describes as cramping) pain on his left abdomen and right flank. Denies back pain or tearing sensation. Could see abdominal muscles tense through skin. Sent to [facility] via ambulance. Smokes cigarettes 02/16/2024 Overview (02/16/2024): 1/2 PPD Class 2 obesity 12/15/2023 Acute pain of left shoulder 12/15/2023 Assessment & Plan (12/15/2023 4:15 PM EDT): -continue naproxen and flexeril two times daily for 15 days -apply heat/ice, rest and gentle stretching -prescription for lidocain patch sent to pharmacy -consider PT if no improvement -MRI there after Moderate episode of recurrent major depressive d isorder 07/16/2023 Assessment & Plan (07/16/2023 11:31 AM EST): During IBH Consult Melecio presenting with depressed mood, loss of interests/pleasure , changes in sleep difficulty falling asleep and difficulty staying asleep , fatigue/loss of energy, inappropriate guilt , hopelessness, worthlessness , difficulty concentrating, excessive worry/anxiety, difficulty controlling worry, and irritability Measurement Tools [Check all that apply and include scores] PHQ9, ZULAY-7 ..Patient Health Questionnaire-9 Score: 15 (11/20/2022 9:48 AM) Patient Health Questionnaire-2 Score: 4 (11/20/2022 9:48 AM) Moderate depressive sxs PLAN: (check all that apply) New/Additional Services needed Off-site services for Interested in engaging in OP services, RC and detox Behavioral Health Integration Plan Internal Cold handoff Recovery Coaching External OP therapy referral and provider to refer to [facility] Dual [facility] program Patient Self Plan Patient to utilize skills provided in intervention , Patient to reach out to [facility] team as needed, Patient to engage in OP therapy , and patient to call [facility] program daily and engage with [facility] services when they reach out Anxiety 07/16/2023 Assessment & Plan (07/16/2023 11:32 AM EST): During IBH Consult Melecio presenting with depressed mood, loss of interests/pleasure , changes in sleep difficulty falling asleep and difficulty staying asleep , fatigue/loss of energy, inappropriate guilt , hopelessness, worthlessness , difficulty concentrating, excessive worry/anxiety, difficulty controlling worry, and irritability Measurement Tools [Check all that apply and include scores] PHQ9, ZULAY-7 ..Patient Health Questionnaire-9 Score: 15 (11/20/2022 9:48 AM) Patient Health Questionnaire-2 Score: 4 (11/20/2022 9:48 AM) Moderate depressive sxs ..ZULAY-7 Total Score: 9 (07/16/2023 11:15 AM) Moderate anxiety sxs PLAN: (check all that apply) New/Additional Services needed Off-site services for Interested in engaging in OP services, RC and detox Behavioral Health Integration Plan Internal Cold handoff Recovery Coaching External OP therapy referral and provider to refer to [facility] Dual Dx program Patient Self Plan Patient to utilize skills provided in intervention , Patient to reach out to [facility] team as needed, Patient to engage in OP therapy , and patient to call [facility] program daily and engage with [facility] services when they reach out Chronic GERD 11/20/2022 Overview (11/20/2022): Referred to GI 04/2022 d/t refractory sx Low back pain at multiple sites 11/20/2022 ACS (acute coronary syndrome) 12/29/2020 Overview (07/16/2023): S/p cardiac thrombus, on BB, statin, DAPT Follows w/ Dr. Connell and Albaro BRITO Status post insertion of drug eluting coronary a rtery stent 12/29/2020 Depressive disorder 06/16/2012 Polysubstance abuse 06/16/2012 Assessment & Plan (07/16/2023 11:30 AM EST): During IBH Consult Melecio presenting with using in larger amounts or for longer than intended, unsuccessful attempt/s to cut down/stop use, spending a lot of time getting/using/recovering from use , cravings and urges to use, recurrent use resulting in failure to fulfill major obligations at work/home/school , continued use, even when it causes interpersonal problems, giving up/reducing important social, occupational, or recreational activities because of use, continued use even when hazardous or dangerous , continued use despite physical or psychological problem (potentially related or made worse by use) , tolerance , withdrawal sxs , in regard to Cannabis and Opioids; for a period of 18+ mo in the context of unable to identify significant stressors and main stressor identified is want to reduce substances and unable to do so. STAGES OF CHANGE PREPARATION PLAN: Referral to [facility] services and [facility] services Patient Self Plan Patient to utilize skills provided in intervention , Patient to reach out to [facility] team as needed, Patient to engage in OP BH therapy , and patient to call [facility] program daily and engage with [employer] [employer] [facility] services when they reach out Encounters Date Type Department Care Team Description 10/16/2024 Population Health Risk Score [facility] () [address] [phone] Provider, Population Health Generic 09/20/2024 9:00 AM EDT Office Visit [facility] [address] [place] [address] Jarvis Quarles MD Opioid use disorder, moderate, dependence (CMS/HCC) (Primary Dx) 09/20/2024 Travel 09/14/2024 Telephone [facility] [address] [place], [place] [phone] Pauline Burns ANP Appointment Request 09/13/2024 3:00 PM EDT Office Visit [facility] [address] [place] [phone] Pauline Burns ANP Smokes cigarettes (Primary Dx); Status post insertion of drug eluting coronary artery stent; Coronary artery disease involving point lay ira heart without angina pectoris, unspecified vessel or lesion type; Encounter for immunization; Essential hypertension; Class 3 severe obesity with serious comorbidity and body mass index (BMI) of 40.0 to 44.9 in adult, unspecified obesity type (CMS/HCC) 09/13/2024 Travel 09/12/2024 Telephone [facility] [address] [place] [address] Pauline Burns ANP INSURANCE CALL from Last 3 Months Immunizations Immunization Administration Dates Next Due Hep B, adult 02/27/2022, 2,02/24/2019,06/21 Influenza injectable quadriv alent preservative free 07/16/2023,02/27/2022 Influenza, IIV3, injectable 09/10/2014, 0 Influenza, seasonal, injecta ble, preservative free 09/13/2024 MMR 11/19/2010 Pfizer Covid-19 Vaccine 12+ 09/13/2024, 1,11/14/2020 Pneumococcal Conjugate PCV 20 09/01/2023 Pneumococcal Polysaccharide PPSV23 09/10/2014 TD (adult), 2 Lf tetanus tox oid, preservative free, adsorbed 07/16/2023,08/30/2006 Td (adult), 5 Lf tetanus tox oid, preservative free, adsorbed 04/29/2013 Tdap 11/19/2010 Varicella 11/19/2010 Family History Medical History Relation Name Comments Diabetes Mother Relation Name Status Comments Brother Mother Social History Tobacco Use Types Packs/Day Years Used Date Smoking Tobacco: Every Day Cigarettes Passive Smoke Exposure: Current Smokeless Tobacco: Never Tobacco Cessation:Ready to Q uit: Not Asked; Counseling Given: Not Answered Alcohol Use Standard Drinks/Week Comments Not Currently 0 (1 standard drink = 0.6 oz pur e alcohol) Depression Answer Date Recorded Patient Health Questionnaire-9 Score 10 02/16/2024 Patient Health Questionnaire-9 Score 10 02/16/2024 Last PHQ-9: Questionnaire Data Not on file 0 02/16/2024 Housing Stability Answer Date Recorded What is your housing situation today? I do not have housing (Staying with others, in a hotel, in a fdc, living outside on the street, on a beach, in a car, or in a park 09/13/[address] you li ve. Do you have problems with any of the following? None of the above 09/13/2024 Food Insecurity Answer Date Recorded Within the past 12 months, y ou worried that your food would run out before you got money to buy more: Never True 09/13/2024 Within the past 12 months,th e food you bought just didn't last and you didn't have enough money to get more: Never True Transportation Answer Date Recorded In the past 12 months, has l ack of transportation kept you from medical appts, meetings, work or from getting things needed for daily living? Yes, it has kept me from medical appointments or getting medications. 09/13/2024 Utilities Answer Date Recorded In the past 12 months, has t he electric, gas, oil or water company threatened to shut off services in your home? No 09/13/2024 Depression Answer Date Recorded Patient Health Questionnaire-2 Score 3 09/13/2024 Internet Access Answer Date Recorded Internet Access Q1 No 09/13/2024 Internet Access Q2 Not on file 09/13/2024 Sex and Gender Information Value Date Recorded Sex Assigned at Male 04/20/2022 10:17 AM EDT Legal Sex Male 10:17 AM EDT Gender Identity Male 04/20/2022 10:17 AM EDT Sexual Orientation Straight 04/20/2022 10 :17 AM EDT Last Filed Vital Signs Vital Sign Reading Time Taken Comments Blood Pressure 117/80 09/13/2024 2:44 PM EDT Pulse 78 09/13/2024 2:44 PM EDT Temperature 36.3 ??C (97.3 ??F) 09/13/2024 2:44 PM ED T Respiratory Rate 16 09/13/2024 2:44 PM EDT Oxygen Saturation 97% 09/13/2024 2:44 PM EDT Inhaled Oxygen Concentration - - Weight 130 kg (286 lb 12.8 oz) 09/13/2024 2:44 P M EDT Height 180.3 cm (5' 11 ) 09/13/2024 2:44 PM EDT Body Mass Index 40 09/13/2024 2:44 PM EDT Plan of Treatment Health Maintenance Due Date Last Done Comments Disability Screening 1984 Family Planning (PISQ) 1999 Depression Monitoring 03/16/2025 09/13/2024, 024 Diabetes: Hemoglobin A1C 04/12/2025 04/12/2024, 06/12/2022 Alcohol/Substance Use Screening 09/13/2025 09/13/2024 SDOH Screening 09/13/2025 09/13/2024 Tobacco Screening 09/13/2025 09/13/2024 Lipid Panel 04/12/2029 04/12/2024, 11/25/2022 DTaP/Tdap/Td Vaccines (4 - Td or Tdap) 07/16/2033 07/16/2023, 04/29/2013, 11/19/2010, Additional history exists Zoster Vaccines (1 of 2) 2034 RSV Patients and Patients Aged 60 years or older (1 - 1-dose 75+ series) 2059 Hepatitis B Vaccines Completed 02/27/2022, 02/27/2022, 02/24/2019, Additional history exists Pneumococcal Vaccine: Pediatrics (0 to 5 Years) and At-Risk Patients (6 to 49) Years) Completed 09/01/2023, 09/10/2014 HIV Screening Completed 04/12/2024, 11/25/2022 Hepatitis C Screening Completed 04/12/2024, 023 COVID-19 Vaccine Completed 09/13/2024, , 11/14/2020 Influenza Vaccine Completed 09/13/2024, , 02/27/2022, Additional history exists HIB Vaccines Aged Out No longer eligi ble based on patient's age to complete this topic HPV Vaccines Aged Out No longer eligi ble based on patient's age to complete this topic Hepatitis A Vaccines Aged Out No long er eligible based on patient's age to complete this topic IPV Vaccines Aged Out No longer eligi ble based on patient's age to complete this topic Meningococcal B Vaccine Aged Out No l onger eligible based on patient's age to complete this topic Meningococcal Vaccine Aged Out No ally mckenzie eligible based on patient's age to complete this topic RSV under 20 months Aged Out No longe r eligible based on patient's age to complete this topic Rotavirus Vaccines Aged Out No longer eligible based on patient's age to complete this topic Procedures Procedure Name Priority Date/Time Associated Diagnosis Comments HEPATITIS C AB W/REFL TO HCV RNA, QN, PCR Routine 04/12/2024 11:45 AM EDT Routine screening for STI (sexually transmitted infection) HIV 1/2 ANTIGEN/ANTIBODY, FOURTH GENERATION W/RFL Routine 04/12/2024 11:45 AM EDT Routine screening for STI (sexually transmitted infection) HEMOGLOBIN A1C Routine 04/12/2024 11:45 AM EDT Healthcare maintenance Hypertriglyceridemia LIPID PANEL, STANDARD Routine 04/12/2024 11:45 AM EDT Hypertriglyceridemia Annual physical exam from Last 3 Months or Most Recently Relevant to Health Maintenance Results * Hepatitis C Antibody with Reflex to HCV, RNA, Quantitative, Real-Time PCR (04/12/2024 11:45 AM EDT) Hepatitis C Antibody Nonreactive Nonreactive [facility] Comment:Antibodies to HCV no t detected; does not exclude early acuteHCV infection. Blood Venous blood specimen / Unknown 04/12/2024 11:45 AM EDT 04/12/2024 1:24 PM EDT Pauline Burns [facility] LAB BLOOD ORDERABLES Final Resul t Performing Organization Address [facility] Co de Phone Number [facility] [address] [place] [address] [phone] * HIV-1/2 Antigen and Antibodies, Fourth Generation, with Reflexes (04/12/2024 11:45 AM EDT) HIV AB/AG Nonreactive Nonreactive [facility] Comment:HIV-1 p24 Ag and/or HIV-1/HIV-2 Ab not detected.A test result that is nonreactive does not exclude thepossibility of exposure to or infection with HIV-1 and/orHIV-2. Nonreactive results in this assay for individualswith prior exposure to HIV-1 and/or HIV-2 may be due toantigen and antibody levels that are below the limit ofdetection of this assay.The [employer] HIV Ag/Ab Combo assay result andsupplemental assay results should be interpreted inconjunction with the patient's clinical presentation,history and other laboratory results. If the results areinconsistent with clinical evidence, additional testing issuggested to confirm the result. Blood Venous blood specimen / Unknown 04/12/2024 11:45 AM EDT 04/12/2024 1:24 PM EDT us Pauline Burns [facility] LAB BLOOD ORDERABLES Final Resul t Performing Organization Address City/[facility]/ZIP Co de Phone Number [facility] [address] [place] [address] [phone] * Hemoglobin A1c (04/12/2024 11:45 AM EDT) Hemoglobin A1c 5.7 <6.0 % [facility] Comment:Hemoglobin A1C Refer ence Range Adults: 4.8 - 6.0 % Non diabetic: < 6.0 % Goal: < 7.0 %Additional Action Suggested: > 8.0 %Note: Hemoglobin A1c results are invalid for patients with abnormal amounts of HbF. Blood transfusions may impact the HbA1c concentration in the patient sample. Estimated Average Glucose 117 mg/dL [facility] Comment:eAG = Estimated ave rage glucose which is %A1C expressed asaverage glucose, using the formula of the [id number] Glucose study (ADAG), Diabetes Care, Vol.31,#8,Jan. 2007 Blood Venous blood specimen / Unknown 04/12/2024 11:45 AM EDT 04/12/2024 1:24 PM EDT us [facility] LAB BLOOD ORDERABLES Final Resul t [facility] [address] [place] [phone] * (ABNORMAL) Lipid Panel, Standard (04/12/2024 11:45 AM EDT) Triglycerides 348(H) <150 mg/dL [facility] Comment:Desirable Triglyceri de: less than 150 mg/dLBorderline High Triglyceride 150-199 mg/dLHigh Triglyceride: 200-499 mg/dLVery High Triglyceride: greater than or equal to 5OO mg/dL Cholesterol 185 <200 mg/dL [facility] Comment:Desirable Cholestero l: less than 200 mg/dLBorderline High Cholesterol: 200-239 mg/dLHigh Cholesterol: greater than 239 mg/dL LDL Cholesterol Calculated 86 <100 mg/dL [facility] Comment:Desirable LDL: less than 100 mg/dLNear Optimal/Above Optimal LDL: 110- 129 mg/dLBorderline High LDL: 130-159 mg/dLHigh LDL: 160-189 mg/dLVery High LDL: greater than or equal to 190 mg/dL HDL Cholesterol 30(L) >40 mg/dL [facility] Comment:Desirable HDL: great er than 40 mg/dL Note: This HDL assay may give artificially low results in patients with liver disease. Blood Venous blood specimen / Unknown 04/12/2024 11:45 AM EDT 04/12/2024 1:24 PM EDT us Pauline BOYLE LAB BLOOD ORDERABLES Final Resul t [facility] [address] [place], [place] [phone] from Last 3 Months or Most Recently Relevant to Health Maintenance Insurance [facility] Care Teams Certified Medical Coder Relationship Specialty Start Date End Date Pauline Burns ANP [address] [place] [address] PCP - General Family Medicine 08/06/20
[2024-11-23 09:10] LABS: MANUAL DIFF FLAG NO
[2024-11-23 09:18] LABS: Basophils Absolute Auto 0.1 X10*3/uL (0.0-0.2); Basophils Percent Auto 0.8 % (0-2); Eosinophils Absolute Auto 0.3 X10*3/uL (0.0-0.4); Hematocrit 37.3 % (42.0-52.0); Hemoglobin 12.3 g/dl (14.0-18.0); Imm Gran Abs Auto 0.02 X10*3/uL (0.00-0.03); Imm Gran Pct Auto 0.3 % (0.0-0.4); Lymphocytes Absolute Auto 1.9 X10*3/uL (1.2-4.9); Lymphocytes Percent Auto 26.2 % (20-40); Mean Corpuscular Hemoglobin 27.5 pg (27.0-33.0); Mean Corpuscular Volume 83.4 fL (80.0-98.0); Mean Platelet Volume 9.1 fL (9.4-12.4); Monocytes Absolute Auto 0.7 X10*3/uL (0.1-1.2); Monocytes Percent Auto 9.6 % (2-11); Neutrophils Absolute Auto 4.3 x10*3/uL (2.0-8.3); Neutrophils Percent Auto 59.1 % (45-73); Platelet Count 312 X10*3/uL (160-400); Red Blood Count 4.47 X10*6/uL (4.60-5.80); Red Cell Distribution Width 14.5 % (11.0-16.0); White Blood Count 7.3 X10*3/uL (4.8-10.8)
[2024-11-23 09:33] LABS: Alanine Aminotransferase 18 U/L (0-40); Albumin Level 3.6 g/dL (3.5-5.0); Alkaline Phosphatase 99 U/L (39-117); Anion Gap 9 (12-20); Aspartate Amino Transferase 23 U/L (5-37); Bilirubin Direct < 0.2 mg/dL (0.0-0.5); Bilirubin Total 0.2 mg/dL (0.0-1.0); Blood Urea Nitrogen 11 mg/dL (9-16); Carbon Dioxide 30 mmol/L (22-29); Chloride 104 mmol/L (96-108); Estimated Glomerular Filt Rate > 60; Ethanol < 10 mg/dL; Glucose Random 119 mg/dL (60-115); Lipase 12 U/L (8-78); Potassium 4.3 mmol/L (3.3-5.1); Sodium 139 mmol/L (135-145); Total Protein 7.1 g/dL (6.5-8.0)
--- NOTE | 2024-11-23 10:32 | PC.NURSE ---
39 M presents to ED d/t feeling body aches from withdrawal from heroine. A+OX4 but pt appears tired, drifts off during conversation. Sts needs a bed at rehab. R lower extremity redness noted and provider aware. Sts uses heroine, 1 bundle every 2 days. Was recently clean but mother and had a relapse. Pt also on methadone and states recieved dose this am along with heroine use this AM. Pt sts he snorts heroine, searched by security without any needles found. Pt denies SI/HI.
[2024-11-23 10:48] LABS: Appearance Urine Clear; Color Urine Yellow; Glucose Urine UA Negative (Negative); Leukocyte Esterase Urine Negative (Negative); Nitrite Urine Negative (Negative); PH 6.5 (5.0-9.0); UMIC TRIGGER UACC YES; Urine Blood Trace (Negative); Urine Ketones Trace mg/dL (Negative); Urine Protein Negative (Neg-Trace)
[2024-11-23 10:50] LABS: Bacteria Urine None Seen (None Seen); Hyaline Casts Urine 0-2 /LPF (0-2); Squamous Epithelial Cell Urine 0-2 /HPF (0-2); WBC Urine 0-5 /HPF (0-5)
[2024-11-23 10:59] LABS: Amphetamine Screen Urine Not Detected (Not Detect); Barbiturates, Urine Not Detected (Not Detect); Benzodiazepines Screen Urine Not Detected (Not Detect); Buprenorphine Scr Not Detected (Not Detect); Cannabinoid Screen Urine POSITIVE (Not Detect); Cocaine Screen Urine Not Detected (Not Detect); Fentanyl, urine POSITIVE (Not Detect); Methadone Screen, Urine Positive (Not Detect); Opiate Screen Urine POSITIVE (Not Detect); Oxycodone Screen Urine Not Detected (Not Detect); Phencyclidine Screen Urine Not Detected (Not Detect)
--- NOTE | 2024-11-23 12:55 | PC.NURSE ---
called pharmacy to do a med rec
[2024-11-23 13:01] VITALS: BP 112/62; PULSE 80; RESP 16; O2SAT 97
--- NOTE | 2024-11-23 13:15 | PC.NURSE ---
[facility] 115[facility] and last dosed on 11/20/24 at 1112 with 6 take homes bottles
--- NOTE | 2024-11-23 13:27 | PC.NURSE ---
pt is currently doing a intake call with a detox out towards [place]
[2024-11-23 15:18] VITALS: BP 112/62; PULSE 80; RESP 16; TEMP -17.7; TEMP 0; O2SAT 97
== END 2024-11-23 15:16 ==
PROVIDERS: Physician Assistant; Emergency Provider Emergency Medicine
DX: F11.10 Opioid abuse, uncomplicated (principal); F10.90 Alcohol use, unspecified, uncomplicated; R11.2 Nausea with vomiting, unspecified; F33.1 Major depressive disorder, recurrent, moderate; L03.116 Cellulitis of left lower limb; F17.210 Nicotine dependence, cigarettes, uncomplicated; Y90.9 Presence of alcohol in blood, level not specified; Z51.81 Encounter for therapeutic drug level monitoring; Z79.899 Other long term (current) drug therapy; Z71.51 Drug abuse counseling and surveillance of drug abuser
CPT/HCPCS: 36415; 80048; 80076; 80307; 81001; 83690; 83735; 85025; 99284; S9485